=== PATIENT | female | born 1950 | race Caucasian/White ===

== ENCOUNTER 2017-04-30 14:55 | Emergency (ER) | payer SELFPAY ==
[2017-04-30 15:01] VITALS: BMI 33.8
--- NOTE | 2017-04-30 15:01 | PDOC ---
Rapid Medical Evaluation Time Seen by Provider: 04/30/17 14:56 Medical Evaluation: 04/30/17 14:56 I have performed a brief in-person evaluation of this patient. This patient presents with a chief complaint of: pain in right knee. Patient reports s/p fall yesterday going down the stairs sustaining injury to right knee. Denies head injury or loss of consciousness. Pain with worse with weight bearing. Pertinent physical exam findings: NAD unlabored breathing right knee with swelling , able to flex and extend no crepitus felt with range of motion I have ordered the following: xray, analgesia This patient will proceed to the ED for further evaluation
[2017-04-30] MEDS ORDERED: IBUPROFEN 600 MG TABLET (FP) PO ONE ×2 (15:02→16:11)
--- NOTE | 2017-04-30 16:05 | PDOC ---
History of Present Illness - General Chief Complaint: Pain, Acute Stated Complaint: INJURY/HTN Time Seen by Provider: 04/30/17 14:56 History Source: Patient Exam Limitations: No Limitations - History of Present Illness Initial Comments: 04/30/17 16:00 66 y/o female presents with right knee pain since yesterday. pt states was at [employer] and did not see the last step and fell landing on her knee. Pt denies previous injury to knee or radiation of pain. Pt also denies sensory changes distal of injury. Pt also with hx of htn buy has been off her medication over 3 years. pt states has not seen her PMD also in over 3 years. Pt denies chest pain , shortness of breath, abd pain, change in urination, or lower extremity edema. Occurred: reports: yesterday Severity: reports: mild Pain Location: reports: lower extremity Method of Injury: Yes: fall Modifying Factors: improves with: None Associated Symptoms (Fall): trouble walking (rt knee pain) Past History - Travel Traveled outside of the country in the last 30 days: No - Past Medical History Allergies/Adverse Reactions: Allergies Allergy/AdvReac Type Severity Reaction Status Date / Time No Known Allergies Allergy Verified 04/30/17 15:01 Home Medications: Ambulatory Orders Clonidine HCl [Clonidine HCl ER] 0.1 mg PO BID #14 tab.er.12h 04/30/17 Oxycodone HCl/Acetaminophen [Percocet 5-325 mg Tablet] 1 - 2 tab PO Q6H PRN #12 tab MDD 4 04/30/17 COPD: No HTN: Yes (non compliant with meds) - Suicide/Smoking/Psychosocial Hx Smoking History: Never smoked Information on smoking cessation initiated: No Hx Alcohol Use: No Drug/Substance Use Hx: No Substance Use Type: None Patient Lives Alone: No Lives with/in: spouse/SO Review of Systems - Review of Systems Able to Perform ROS?: Yes Constitutional: No: Symptoms Reported HEENTM: No: Symptoms Reported Respiratory: No: Symptoms reported Cardiac (ROS): No: Symptoms Reported ABD/GI: No: Symptoms Reported : No: Symptoms Reported Musculoskeletal: Yes: Joint Pain (right knee), Joint Swelling (right knee) Integumentary: No: Symptoms Reported Neurological: No: Symptoms reported Hematologic/Lymphatic: No: Symptoms Reported *Physical Exam - Vital Signs Last Vital Signs Temp Pulse Resp BP Pulse Ox 98.3 F 87 18 201/101 97 04/30/17 14:58 04/30/17 14:58 04/30/17 14:58 04/30/17 14:58 04/30/17 14:58 - Physical Exam General Appearance: Yes: Nourished, Appropriately Dressed. No: Apparent Distress HEENT: positive: EOMI, BOBBI, Pharynx Normal. negative: Pale Conjunctivae Neck: positive: Supple. negative: Decreased range of motion Respiratory/Chest: positive: Lungs Clear, Normal Breath Sounds. negative: Respiratory Distress, Accessory Muscle Use Cardiovascular: positive: Regular Rhythm, Regular Rate. negative: Murmur Gastrointestinal/Abdominal: positive: Soft. negative: Tenderness Extremity: positive: Normal Capillary Refill, Normal Range of Motion (but with noted discomfort with flexion/extension), Tender (rt patella. No crepitus or deformity noted ) Integumentary: positive: Normal Color, Warm, Moist Neurologic: positive: Motor Strength 5/5 Medical Decision Making - Medical Decision Making 04/30/17 16:07 Patient here for right knee injury. Patient incidentally was noted elevated blood pressure which is attributed to her being noncompliant with medication for over 3 years. Patient had no and [place] damage symptoms or other acute findings except for elevated blood pressure. Patient was ordered for any x-ray and Motrin. Patient will have repeat blood pressure once x-ray and pain is under control. 04/30/17 17:31 X-ray of the right knee shows no signs of fracture or dislocation. There is noted joint effusion on X-ray. Son states has crutches at home. Patient placed in knee immobilizer. Patient also prescribed Percocet for severe pain and referral to orthopedist also enclosed and discharge. Awaiting repeat blood pressure 04/30/17 17:52 Patient repeat blood pressure remains elevated. Patient given clonidine 0.01 mg. Will discharge home with the same 7 days 04/30/17 17:53 Selected Entries 04/30/17 17:43 Blood Pressure 203/99 [Left Arm] 04/30/17 18:42 Awaiting recheck her blood pressure after being given clonidine. *DC/Admit/Observation/Transfer Diagnosis at time of Disposition: Poor hypertension control Right knee injury Qualifiers: Encounter type: initial encounter Qualified Code(s): S89.91XA - Unspecified injury of right lower leg, initial encounter - Discharge Dispostion Disposition: HOME Condition at time of disposition: Good - Prescriptions Prescriptions: Clonidine HCl [Clonidine HCl ER] 0.1 mg PO BID #14 tab.er.12h Oxycodone HCl/Acetaminophen [Percocet 5-325 mg Tablet] 1 - 2 tab PO Q6H PRN #12 tab MDD 4 PRN Reason: Pain - Referrals Referrals: Stephen Diaz MD [Staff Physician] - - Patient Instructions Printed Discharge Instructions: High Blood Pressure (Hypertension) ( Alternative Therapy), DI for Knee Effusion Additional Instructions: Please use the immobilizer during the day and remove at night. Please follow-up with referred orthopedist the pain continues greater than 7 days or worsened in severity. Please also follow up with her PCP to discuss today's blood pressure reading. - Post Discharge Activity
[2017-04-30 17:44] VITALS: PULSE 76
[2017-04-30] MEDS ORDERED: cloNIDine HCL 0.1 MG TABLET PO ONE (17:46)
[2017-04-30] MEDS ORDERED: cloNIDine HCL 0.1 MG TABLET ONE (17:47)
[2017-04-30 18:51] VITALS: BP 141/88; TEMP 98.1
== END 2017-04-30 18:51 | disposition home or self-care (01) ==
LOC: JER 14:55
DX: S89.81XA Other specified injuries of right lower leg, initial encounter (principal); W10.8XXA Fall (on) (from) other stairs and steps, initial encounter; Y93.89 Activity, other specified; Y92.22 Religious institution as the place of occurrence of the external cause; Y99.8 Other external cause status; I10 Essential (primary) hypertension
CPT/HCPCS: 73560-TC-RT; 99283-25

== ENCOUNTER 2018-05-03 10:29 | Inpatient (IN) | payer OTHER ==
[2018-05-03 11:29] LABS: BASO % 0.8 % (0-2.0); EOS % 0.6 % (0-4.5); HEMATOCRIT 44.8 % (32.4-45.2); HEMOGLOBIN 14.9 GM/dL (10.7-15.3); LYMPH % 17.7 % (8-40); MCH 29.6 pg (25.7-33.7); MCHC 33.2 g/dl (32.0-36.0); MEAN CELL VOLUME 88.9 fl (80-96); MEAN PLT VOLUME 8.9 fl (7.5-11.1); MONO % 6.4 % (3.8-10.2); NEUT % 74.5 % (42.8-82.8); PLATELET COUNT 293 K/MM3 (134-434); RBC 5.03 M/mm3 (3.60-5.2); RDW 12.6 % (11.6-15.6)
[2018-05-03 11:49] LABS: ALBUMIN 3.9 g/dl (3.4-5.0); ALK PHOS 95 U/L (45-117); ANION GAP 7 MMOL/L (8-16); BILIRUBIN,TOTAL 0.6 mg/dL (0.2-1); BLOOD UREA NITROGEN 14 mg/dL (7-18); CALCIUM 8.9 mg/dL (8.5-10.1); CHLORIDE 101 mmol/L (98-107); CHOLESTEROL 190 mg/dL (50-200); CO2 29 mmol/L (21-32); CREATININE 0.9 mg/dL (0.55-1.3); GLUCOSE,RANDOM 238 mg/dL (74-106); HDL CHOLESTEROL 40 mg/dL (40-60); POTASSIUM 3.9 mmol/L (3.5-5.1); SGOT/AST 18 U/L (15-37); SGPT/ALT 29 U/L (13-61); SODIUM 137 mmol/L (136-145); TOT PROT 7.2 g/dl (6.4-8.2); TRIGLYCERIDES 191 mg/dL (0-150)
[2018-05-03 11:49] LABS: URINE APPEARANCE CLEAR; URINE BILIRUBIN NEGATIVE (<2.0 mg/dL); URINE COLOR YELLOW; URINE GLUCOSE (UA) 1+ (NEGATIVE); URINE KETONE 1+ (NEGATIVE); URINE LEUK ESTERASE NEGATIVE (NEGATIVE); URINE NITRITE NEGATIVE (NEGATIVE); URINE PROTEIN NEGATIVE (NEGATIVE); URINE UROBILINOGEN NEGATIVE mg/dL (0.2-1.0)
--- NOTE | 2018-05-03 11:49 | PDOC ---
*Physical Exam - Vital Signs Last Vital Signs Temp Pulse Resp BP Pulse Ox 98.0 F 77 16 205/81 H 100 05/03/18 10:49 05/03/18 10:49 05/03/18 10:49 05/03/18 10:49 05/03/18 10:49 ED Treatment Course - LABORATORY CBC & Chemistry Diagram: 05/03/18 11:11 05/03/18 11:11 - ADDITIONAL ORDERS Additional order review: 05/03/18 11:11 RBC 5.03 MCV 88.9 MCHC 33.2 RDW 12.6 MPV 8.9 Neutrophils % 74.5 Lymphocytes % 17.7 Monocytes % 6.4 Eosinophils % 0.6 Basophils % 0.8 - RADIOLOGY Radiology Studies Ordered: Category Date Time Status HEAD CT WITHOUT CONTRAST [CT] Stat CT Scan 05/03/18 11:00 Taken Medical Decision Making - Critical Care Time Total Critical Care Time (minutes): 35 Critical Care Statement: The care of this patient involved high complexity decision making to prevent further life threatening deterioration of the patient 's condition and/or to evaluate & treat vital organ system(s) failure or risk of failure. - Medical Decision Making 05/03/18 13:30 67 yo F h/o HTN, HLD, NIDDM p/w right leg weakness. Symptoms began 3 days ago, thought to be due to sciatica She now notices right arm numbness CT - Left basilar non hemorrhagic infarct Labs - wnl Pt seen by Midlevel Provider under my direct supervision Pt interviewed and examined Ancillary studies reviewed Admit to hospitalist I agree with plan as outlined by Midlevel Provider 05/03/18 13:31 *DC/Admit/Observation/Transfer Diagnosis at time of Disposition: Lacunar infarction - Referrals - Patient Instructions - Post Discharge Activity
--- NOTE | 2018-05-03 11:51 | PDOC ---
History of Present Illness - General Chief Complaint: Weakness Stated Complaint: WEAKNESS Time Seen by Provider: 05/03/18 10:45 History Source: Patient Exam Limitations: No Limitations - History of Present Illness Initial Comments: 05/03/18 13:04 Patient is a 67-year-old female with past medical history of hypertension, hyperlipidemia, [id number] diabetes, who presents to the emergency department today for new onset R leg weakness. Patient states that her symptoms began approximately 3 days ago. She did not think anything of her symptoms at that time she has had sciatica in the past. She states that when her leg started to go numb she was concerned. She now also states that she feels like her right arm is weak. Denies fevers, chills, nausea, vomiting, source of breath , difficulty breathing, chest pain. tPA Exclusion Checklist 0-3hr - Time Elapsed Date last known well: 04/30/18 Time last known well: 10:00 Elaspsed time: 3 Day(s) and 3 Hour(s) and 29 Minutes - Thrombolytic Therapy Candidate Is the patient eligible for Thrombolytic Therapy?: No - Ineligibility reason(s) Reasons No tPA given: Outside of window - delayed arrival (Waited three days to present to the ED) NIH Stroke Scale - Last Known Well Date/Time & Onset Date Last Known Well: 04/30/18 Time Last Known Well: 10:00 - Initial Evaluation Level of consciousness: Alert Ask patient the month and their age: Answers both correctly Ask patient to open & close eyes; make fist and let go: Obeys both correctly Best gaze (horizontal eye movement): Normal Visual field testing: No visual field loss Facial paresis (Show teeth/raise eyebrows/close eyes tight): Normal symmetrical movement Motor Function: Left Arm: Normal Motor Function: Right Arm: Drift Motor Function: Left Leg: Normal (extends leg 30 degrees for 5 seconds without drift) Motor Function: Right Leg: Some effort against gravity Limb Ataxia: No ataxia Sensory(Use pinprick test arms,legs,trunk,face/side to side): Mild to moderate decrease in sensation Best language (Describe picture, name items, read sentences): No Aphasia Dysarthria (read several words): Normal articulation Extinction and Inattention: No abnormality - Total Score NIH Stroke Scale Score: 4 Past History - Travel Traveled outside of the country in the last 30 days: No Close contact w/someone who was outside of country & ill: No - Past Medical History Allergies/Adverse Reactions: Allergies Allergy/AdvReac Type Severity Reaction Status Date / Time No Known Allergies Allergy Verified 05/03/18 10:54 Home Medications: Ambulatory Orders Lisinopril/Hydrochlorothiazide [Lisinopril-Hctz 20-25 mg Tab] 1 each PO DAILY Pravastatin Sodium [Pravachol] 40 mg PO HS 05/03/18 metFORMIN HCL [Metformin HCl] 500 mg PO DAILY 05/03/18 COPD: No CHF: No HTN: Yes (non compliant with meds) - Suicide/Smoking/Psychosocial Hx Smoking History: Never smoked Have you smoked in the past 12 months: No Information on smoking cessation initiated: No Hx Alcohol Use: No Drug/Substance Use Hx: No Substance Use Type: None Review of Systems - Review of Systems Able to Perform ROS?: Yes Comments:: 05/03/18 11:51 CONSTITUTIONAL: Absent: fever, chills, diaphoresis, generalized weakness, malaise, loss of appetite HEENT: Absent: rhinorrhea, nasal congestion, throat pain, throat swelling, difficulty swallowing, mouth swelling, ear pain, eye pain, visual Changes CARDIOVASCULAR: Absent: chest pain, loss of consciousness, palpitations, irregular heart rate, peripheral edema RESPIRATORY: Absent: cough, shortness of breath, dyspnea with exertion, orthopnea, wheezing, stridor, hemoptysis GASTROINTESTINAL: Absent: abdominal pain, abdominal distension, nausea, vomiting, diarrhea, constipation, melena, hematochezia GENITOURINARY: Absent: dysuria, frequency, urgency, hesitancy, hematuria, flank pain, genital pain MUSCULOSKELETAL: Absent: myalgia, arthralgia, joint swelling SKIN: Absent: rash, itching, pallor HEMATOLOGIC/IMMUNOLOGIC: Absent: easy bleeding, easy bruising, lymphadenopathy, frequent infections ENDOCRINE: Absent: unexplained weight gain, unexplained weight loss, heat intolerance, cold intolerance NEUROLOGIC: Present: R leg weakness, R arm tingling Absent: headache, dizziness, unsteady gait, seizure, mental status changes, bladder or bowel incontinence PSYCHIATRIC: Absent: anxiety, depression, suicidal or homicidal ideation, hallucinations. Is the patient limited Welsh proficient: No *Physical Exam - Vital Signs Last Vital Signs Temp Pulse Resp BP Pulse Ox 98.0 F 77 16 205/81 H 100 05/03/18 10:49 05/03/18 10:49 05/03/18 10:49 05/03/18 10:49 05/03/18 10:49 - Physical Exam Comments: 05/03/18 11:53 GENERAL: Well developed, well nourished. Awake and alert. No acute distress. HEENT: Normocephalic, atraumatic. PERRLA, EOMI. No conjunctival pallor. Sclera are non- icteric. Moist mucous membranes. Oropharynx is clear. NECK: Supple. Full ROM. No JVD. Carotid pulses 2+ and symmetric, without bruits. No thyromegaly. No lymphadenopathy. CARDIOVASCULAR: Regular rate and rhythm. No murmurs, rubs, or gallops. Distal pulses are 2+ and symmetric. PULMONARY: No evidence of respiratory distress. Lungs clear to auscultation bilaterally. No wheezing, rales or rhonchi. ABDOMINAL: Soft. Non-tender. Non-distended. No rebound or guarding. No organomegaly. Normoactive bowel sounds. MUSCULOSKELETAL Normal range of motion at all joints. No bony deformities or tenderness. No CVA tenderness. EXTREMITIES: No cyanosis. No clubbing. No edema. No calf tenderness. SKIN: Warm and dry. Normal capillary refill. No rashes. No jaundice. NEUROLOGICAL: Alert, awake, appropriate. Cranial nerves 2-12 intact. Diminished sense of smell to the R lower leg and R arm. No deficits to light touch and temperature in face. No motor deficits in the in face. R arm drift on exam, but does not hit the bed. R leg drift and hits the bed with resistance. Normoreflexic in the upper and lower extremities. Normal speech. Toes are down-going bilaterally. Gait is unobserved. PSYCHIATRIC: Cooperative. Good eye contact. Appropriate mood and affect. Moderate Sedation - Procedure Monitoring Vital Signs: Procedure Monitoring Vital Signs Temperature 98.0 F 05/03/18 10:49 Pulse Rate 77 05/03/18 10:49 Respiratory Rate 16 05/03/18 10:49 Blood Pressure 205/81 H 05/03/18 10:49 O2 Sat by Pulse Oximetry (%) 100 05/03/18 10:49 ED Treatment Course - LABORATORY CBC & Chemistry Diagram: 05/03/18 11:11 05/03/18 11:11 - ADDITIONAL ORDERS Additional order review: 05/03/18 11:11 RBC 5.03 MCV 88.9 MCHC 33.2 RDW 12.6 MPV 8.9 Neutrophils % 74.5 Lymphocytes % 17.7 Monocytes % 6.4 Eosinophils % 0.6 Basophils % 0.8 *DC/Admit/Observation/Transfer Diagnosis at time of Disposition: Lacunar infarction - Discharge Dispostion Condition at time of disposition: Stable Decision to Admit order: Yes - Referrals - Patient Instructions - Post Discharge Activity
[2018-05-03] MEDS ORDERED: HYDROCHLOROTHIAZIDE 25 MG TABLET (FP) PO ONE (11:57)
[2018-05-03] MEDS ORDERED: LISINOPRIL 20 MG TABLET (FP) PO ONE (11:57)
[2018-05-03] MEDS ORDERED: HYDROCHLOROTHIAZIDE 25 MG TABLET (FP) ONE (12:08)
[2018-05-03] MEDS ORDERED: LISINOPRIL 20 MG TABLET (FP) ONE (12:09)
[2018-05-03 12:10] LABS: INR 1.02 (0.83-1.09)
[2018-05-03] MEDS ORDERED: ASPIRIN 325 MG TABLET PO ONE (12:37)
[2018-05-03] MEDS ORDERED: ASPIRIN 325 MG TABLET ONE (13:14)
--- NOTE | 2018-05-03 13:25 | EKG ---
Test Reason : Blood Pressure : / mmHG Vent. Rate : 086 BPM Atrial Rate : 086 BPM P-R Int : 118 ms QRS Dur : 106 ms QT Int : 374 ms P-R-T Axes : 041 -21 145 degrees QTc Int : 447 ms NORMAL SINUS RHYTHM LEFT VENTRICULAR HYPERTROPHY WITH REPOLARIZATION ABNORMALITY ABNORMAL ECG NO PREVIOUS ECGS AVAILABLE Confirmed by ZAID SUMNER MD ([id number]) on 05/03/2018 1:25:03 PM Referred By: Confirmed By:ZAID SUMNER MD
--- NOTE | 2018-05-03 14:07 | HP ---
CHIEF COMPLAINT: RLE weakness x 3 days PCP: denies HISTORY OF PRESENT ILLNESS: 67 y/o F with PMH HTN, HLD, non-insulin dependent DM, who presents to the ED with RLE weakness over the past three days. As per pt, her last known well was 04/30 at 11:05AM. States that she was at home when she developed sudden RLE weakness. Pt has hx of sciataca, thus she thought it was for this reason. However it did not resolve. It was a/w with numbness and while she was able to ambulate, she had difficulty with her gait. States that during this time she continued to take her BP (lisinopril/HCTZ) and cholesterol meds (pravachol), but did not seek evaluation at the hospital. Her son was also sleeping when her sx started, so he is not aware of any acute changes. States that when she looked in the mirror, she did not notice any facial droop and did not feel as if her own speech was slurred. Pt came to the ED today d/t continued symptoms, as well as new RUE weakness that began over the last 1-2 days (she is not sure when). Denies BANERJEE, visual changes, chest pain or pressure, or changes in urinary or bowel function. Pt does not check her BP routinely at home, but states that she is compliant with lisinopril/HCTZ. States that she takes her DM meds (metformin) every other day, since she believes that she "does not have diabetes." ER course was notable for: (1) asa 325mg x 1 (2) initial BP 205/81> recheck 170/77 (3) HCTZ 25mg x 1, lisinopril 20mg x 1 Recent Travel: denies PAST MEDICAL HISTORY: as above PAST SURGICAL HISTORY: c-sections x 3 Social History: retired; used to iron neckties Smoking: denies Alcohol:denies Drugs: denies Family History: mother- passed from pancreatic CA. no other fam hx as per pt Allergies No Known Allergies Allergy (Verified 05/03/18 10:54) HOME MEDICATIONS: Home Medications Medication Instructions Recorded Lisinopril/Hydrochlorothiazide 1 each PO DAILY 05/03/18 [Lisinopril-Hctz 20-25 mg Tab] Pravastatin Sodium [Pravachol] 40 mg PO HS 05/03/18 metFORMIN HCL [Metformin HCl] 500 mg PO DAILY 05/03/18 Verified with patient . however she is not compliant with her metformin (takes every other day) since she believes that "she does not have diabetes" REVIEW OF SYSTEMS CONSTITUTIONAL: Absent: fever, chills, diaphoresis, generalized weakness, malaise, loss of appetite, weight change HEENT: Absent: rhinorrhea, nasal congestion, throat pain, throat swelling, difficulty swallowing, mouth swelling, ear pain, eye pain, visual changes CARDIOVASCULAR: Absent: chest pain, syncope, palpitations, irregular heart rate, lightheadedness , peripheral edema RESPIRATORY: Absent: cough, shortness of breath, dyspnea with exertion, orthopnea, wheezing, stridor, hemoptysis GASTROINTESTINAL: Absent: abdominal pain, abdominal distension, nausea, vomiting, diarrhea, constipation, melena, hematochezia GENITOURINARY: Absent: dysuria, frequency, urgency, hesitancy, hematuria, flank pain, genital pain MUSCULOSKELETAL: Absent: myalgia, arthralgia, joint swelling, back pain, neck pain SKIN: Absent: rash, itching, pallor HEMATOLOGIC/IMMUNOLOGIC: Absent: easy bleeding, easy bruising, lymphadenopathy, frequent infections ENDOCRINE: Absent: unexplained weight gain, unexplained weight loss, heat intolerance, cold intolerance NEUROLOGIC: +RUE weakness, RLE weakness and numbness Absent: headache, focal weakness or paresthesias, dizziness, unsteady gait, seizure, mental status changes, bladder or bowel incontinence PSYCHIATRIC: Absent: anxiety, depression, suicidal or homicidal ideation, hallucinations. PHYSICAL EXAMINATION Vital Signs - 24 hr 05/03/18 05/03/18 10:49 12:01 Temperature 98.0 F 98.2 F Pulse Rate 77 Pulse Rate [ 76 Left Radial] Respiratory 16 17 Rate Blood Pressure 205/81 H Blood Pressure 170/77 [Right Arm] O2 Sat by Pulse 100 98 Oximetry (%) GENERAL: Pleasant. Awake, alert, and fully oriented, in no acute distress. HEAD: Normal with no signs of trauma. FACE: +asymmetrical smile (R>L) EYES: Pupils equal, round and reactive to light, extraocular movements intact, sclera anicteric, conjunctiva clear. EARS, NOSE, THROAT: Ears normal, nares patent, oropharynx clear without exudates. Moist mucous membranes. NECK: Normal range of motion, supple LUNGS: Breath sounds equal, clear to auscultation bilaterally. No wheezes, and no crackles. No accessory muscle use. HEART: Regular rate and rhythm, normal S1 and S2 without murmur, rub or gallop. ABDOMEN: Soft, obese, nontender, not distended, normoactive bowel sounds, no guarding, no rebound. LOWER EXTREMITIES: 2+ pt pulses, warm, well-perfused. No peripheral edema. NEUROLOGICAL: +asymmetrical smile (R>L) +numbness over R forehead, RUE, RLE +motor strength 4/5 RUE, 3/5 RLE. did not appreciate pronator drift without dysmetria. heat plant specialist 2-12 intact. tongue midline. PSYCHIATRIC: Cooperative. SKIN: Warm, dry Laboratory Results 05/03/18 05/03/18 05/03/18 11:11 11:11 11:11 WBC 8.0 RBC 5.03 Hgb 14.9 Hct 44.8 MCV 88.9 MCH 29.6 MCHC 33.2 RDW 12.6 Plt Count 293 MPV 8.9 Absolute Neuts (auto) 6.0 Neutrophils % 74.5 Lymphocytes % 17.7 Monocytes % 6.4 Eosinophils % 0.6 Basophils % 0.8 Nucleated RBC % 0 PT with INR 12.00 INR 1.02 Sodium 137 Potassium 3.9 Chloride 101 Carbon Dioxide 29 Anion Gap 7 L BUN 14 Creatinine 0.9 Creat Clearance w eGFR > 60 Random Glucose 238 H Calcium 8.9 Total Bilirubin 0.6 AST 18 ALT 29 Alkaline Phosphatase 95 Creatine Kinase 150 Creatine Kinase Index 1.2 CK-MB (CK-2) 1.9 Troponin I < 0.02 Total Protein 7.2 Albumin 3.9 Triglycerides 191 H Cholesterol 190 Total LDL Cholesterol 129 H HDL Cholesterol [address]: no evidence of acute intracranial hemorrhage. nonhemorrhagic lacunar infarct of indeterminate age. measuring approximately 9.3mmx5.9mm is seen in the posterior aspect of the left basal ganglia. EKG: NSR, with LVH. TWI I, avL, qtc 447ms. without previous EKG for comparison. ASSESSMENT/PLAN: 67 y/o F with PMH HTN, HLD, non-insulin dependent DM, who presents to the ED with RLE weakness over the past three days. 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 does not check at home, discussed importance -in case of ischemia/infarct, pt outside of permissive HTN window. need tight control of BP. s/p lisinopril 20mg, HCTZ 25mg (home meds) in ED. will also give additional norvasc 5mg daily. stat dose now -c/w lipitor 80mg HS, asa 81mg qd -f/u ECHO -f/u carotid dopp -neuro consult; dr. marie -PT, speech and swallow. NPO until then -tele monitoring, stroke unit. neurochecks q1-2hr #HTN-uncontrolled -c/w lisinopril 20mg, HCTZ 25mg. -added norvasc 5mg qd #HLD -c/w high dose statin- lipitor 80mg PO HS -goal LDL<70 as pt also diabetic #DM -hold home metformin -ISS -BGM -F/u A1c #PPX DVT: hep 5k SQ TID #Dispo tele monitoring stroke unit Visit type - Emergency Visit Emergency Visit: Yes ED Registration Date: 05/03/18 Care time: The patient presented to the Emergency Department on the above date and was hospitalized for further evaluation of their emergent condition. - New Patient This patient is new to me today: Yes Date on this admission: 05/03/18 - Critical Care Critical Care patient: No
--- NOTE | 2018-05-03 15:40 | ECHO ---
Name: MARY NORRIS Exam:Adult Echocardiogram Study Date: 05/03/2018 03:02 PM Age: 67 yrs Reason For Study: CVA Height: 62 in Weight: 175 lb BSA: 1.8 m2 MMode/2D Measurements & Calculations IVSd: 1.1 cm Ao root diam: 2.6 cm LVIDd: 4.3 cm LA dimension: 3.0 cm LVIDs: 3.0 cm LVPWd: 0.99 cm EDV(Teich): 82.6 ml ESV(Teich): 33.8 ml Doppler Measurements & Calculations MV E max gera: 47.4 cm/sec Med Peak E' Gera: 3.8 cm/sec MV A max gera: 72.6 cm/sec Med E/e': 12.5 MV E/A: 0.65 Lat Peak E' Gera: 5.3 cm/sec MV dec time: 0.20 sec Lat E/e': 9.0 Left Ventricle There is mild concentric left ventricular hypertrophy. Left ventricular systolic function is normal. Ejection Fraction = 50-55%. The transmitral spectral Doppler flow pattern is suggestive of impaired LV relaxat ion. Right Ventricle The right ventricle is grossly normal size. The right ventricular systolic function is grossly normal . Atria Normal left and right atrial size and function. The interatrial septum is not well seen. Mitral Valve There is mild mitral valve thickening. There is no mitral valve stenosis. There is trace mitral regur gitation. Tricuspid Valve The tricuspid valve is not well visualized, but is grossly normal. There is mild tricuspid regurgitat ion. Aortic Valve Nodular thickening of the aortic valve leaflets likely represents area of focal calcification. No hemodynamically significant valvular aortic stenosis. No aortic regurgitation is present. Pulmonic Valve The pulmonic valve is not well visualized. There is no pulmonic valvular stenosis. There is no pulmon ic valvular regurgitation. Great Vessels The aortic root is normal size. Pericardium/Pleura There is no pericardial effusion. Interpretation Summary Would consider a transesophageal echocardiogram if clinically indicated. There is mild concentric lef t ventricular hypertrophy. The transmitral spectral Doppler flow pattern is suggestive of impaired LV relaxation. Left ventricular systolic function is normal. Ejection Fraction = 50-55%. The interatrial septum is not well seen. There is mild mitral valve thickening. There is trace mitral regurgitation. There is mild tricuspid regurgitation. Nodular thickening of the aortic valve leaflets likely represents area of focal calcification. There is no pericardial effusion. MD Villagomez *Miki 05/03/2018 03:39 PM
--- NOTE | 2018-05-03 16:07 | PN ---
Teaching Attending Note Name of Resident: Bev Meza ATTENDING PHYSICIAN STATEMENT I saw and evaluated the patient. I reviewed the resident's note and discussed the case with the resident. I agree with the resident's findings and plan as documented. SUBJECTIVE: Patient is feeling better still is having mild weakness. OBJECTIVE: Vital Signs Temperature 98.2 F 05/03/18 12:01 Pulse Rate 76 05/03/18 12:01 Respiratory Rate 17 05/03/18 12:01 Blood Pressure 170/77 05/03/18 12:01 O2 Sat by Pulse Oximetry (%) 98 05/03/18 12:01 GENERAL: Pleasant. Awake, alert, and fully oriented, in no acute distress. HEAD: Normal with no signs of trauma. EYES: Pupils equal, round and reactive to light, extraocular movements intact, sclera anicteric, conjunctiva clear. EARS, NOSE, THROAT: Ears normal, oropharynx clear without exudates. Moist mucous membranes. NECK: Normal range of motion, supple LUNGS: Breath sounds equal, clear to auscultation bilaterally. No wheezes, and no crackles. No accessory muscle use. HEART: Regular rate and rhythm, normal S1 and S2 without murmur, rub or gallop. ABDOMEN: Soft, obese, nontender, not distended, normoactive bowel sounds, no guarding, no rebound. EXTREMITIES: 2+ pt pulses, warm, well-perfused. No peripheral edema. NEUROLOGICAL: asymmetrical smile (R>L) but as per son that is her normal. peoplesoft financials consultant 2- 12 intact. tongue midline. RUE, RLE numbness, strength 4/5 RUE, 3/5 RLE. No dysartheria. PSYCHIATRIC: Cooperative. SKIN: Warm, dry CBCD WBC 8.0 K/mm3 (4.0-10.0) 05/03/18 11:11 RBC 5.03 M/mm3 (3.60-5.2) 05/03/18 11:11 Hgb 14.9 GM/dL (10.7-15.3) 05/03/18 11:11 Hct 44.8 % (32.4-45.2) 05/03/18 11:11 MCV 88.9 fl (80-96) 05/03/18 11:11 MCHC 33.2 g/dl (32.0-36.0) 05/03/18 11:11 RDW 12.6 % (11.6-15.6) 05/03/18 11:11 Plt Count 293 K/MM3 (134-434) 05/03/18 11:11 MPV 8.9 fl (7.5-11.1) 05/03/18 11:11 CMP Sodium 137 mmol/L (136-145) 05/03/18 11:11 Potassium 3.9 mmol/L (3.5-5.1) 05/03/18 11:11 Chloride 101 mmol/L (98-107) 05/03/18 11:11 Carbon Dioxide 29 mmol/L (21-32) 05/03/18 11:11 Anion Gap 7 MMOL/L (8-16) L 05/03/18 11:11 BUN 14 mg/dL (7-18) 05/03/18 11:11 Creatinine 0.9 mg/dL (0.55-1.3) 05/03/18 11:11 Creat Clearance w eGFR > 60 (>60) 05/03/18 11:11 Random Glucose 238 mg/dL (74-106) H 05/03/18 11:11 Calcium 8.9 mg/dL (8.5-10.1) 05/03/18 11:11 Total Bilirubin 0.6 mg/dL (0.2-1) 05/03/18 11:11 AST 18 U/L (15-37) 05/03/18 11:11 ALT 29 U/L (13-61) 05/03/18 11:11 Alkaline Phosphatase 95 U/L (45-117) 05/03/18 11:11 Total Protein 7.2 g/dl (6.4-8.2) 05/03/18 11:11 Albumin 3.9 g/dl (3.4-5.0) 05/03/18 11:11 CARDIAC ENZYMES Creatine Kinase 150 IU/L (26-192) 05/03/18 11:11 Troponin I < 0.02 ng/ml (0.00-0.05) 05/03/18 11:11 Current Medications Generic Name Dose Route Start Last Admin Trade Name Freq PRN Reason Stop Dose Admin Amlodipine Besylate 5 mg 05/03/18 14:45 Norvasc - PO DAILY [facility] Aspirin 81 mg 05/04/18 10:00 Ecotrin - PO DAILY [facility] Atorvastatin Calcium 80 mg 05/03/18 22:00 Lipitor - PO HS [facility] Heparin Sodium (Porcine) 5,000 unit 05/03/18 22:00 Heparin - SQ TID [facility] Hydrochlorothiazide 25 mg 05/04/18 10:00 Hctz - PO DAILY [facility] Insulin Aspart 1 vial 05/03/18 16:30 Novolog Vial Sliding Scale - SQ TIDAC [facility] Protocol Lisinopril 20 mg 05/04/18 10:00 Prinivil PO DAILY [facility] Home Medications Medication Instructions Recorded Lisinopril/Hydrochlorothiazide 1 each PO DAILY 05/03/18 [Lisinopril-Hctz 20-25 mg Tab] Pravastatin Sodium [Pravachol] 40 mg PO HS 05/03/18 metFORMIN HCL [Metformin HCl] 500 mg PO DAILY 05/03/[address]: no evidence of acute intracranial hemorrhage. nonhemorrhagic lacunar infarct of indeterminate age. measuring approximately 9.3mmx5.9mm is seen in the posterior aspect of the left basal ganglia. EKG: NSR, with LVH. TWI I, avL, qtc 447ms. without previous EKG for comparison. ASSESSMENT AND PLAN: 67 y/o F with PMHx of HTN, HLD, T2DM , who presents to the ED with RLE weakness over the past three days. 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
[2018-05-03] MEDS: INSULIN SLIDING SCALE (NOVOLOG) 1 VIAL SQ SCH (17:20)
[2018-05-03] MEDS: amLODIPine BESYLATE 5 MG TABLET (FP) PO SCH (17:22)
[2018-05-03] MEDS ORDERED: HEMOQUE TEST 1 EACH EACH ONE (17:24)
[2018-05-03] MEDS ORDERED: INSULIN (NOVOLOG) ASPART 100 UNITS/ML 10ML VIAL ONE (17:41)
[2018-05-03] MEDS: HEPARIN NA (PORCINE) 5,000 UNITS/ML 1ML VIAL SQ SCH (21:53)
[2018-05-03] MEDS: ATORVASTATIN CA 80 MG TABLET (FP) PO SCH (21:53)
[2018-05-03 22:41] VITALS: BMI 31.9
[2018-05-04] MEDS: INSULIN SLIDING SCALE (NOVOLOG) 1 VIAL SQ SCH ×3 (06:15→17:29)
[2018-05-04] MEDS: HEPARIN NA (PORCINE) 5,000 UNITS/ML 1ML VIAL SQ SCH ×3 (06:19→21:16)
[2018-05-04 07:57] LABS: BASO % 0.9 % (0-2.0); EOS % 2.9 % (0-4.5); HEMATOCRIT 42.6 % (32.4-45.2); HEMOGLOBIN 14.5 GM/dL (10.7-15.3); LYMPH % 36.1 % (8-40); MCHC 33.9 g/dl (32.0-36.0); MEAN CELL VOLUME 88.4 fl (80-96); MEAN PLT VOLUME 9.5 fl (7.5-11.1); MONO % 8.5 % (3.8-10.2); NEUT % 51.6 % (42.8-82.8); PLATELET COUNT 297 K/MM3 (134-434); RBC 4.82 M/mm3 (3.60-5.2); RDW 12.6 % (11.6-15.6); WHITE BLOOD COUNT 6.6 K/mm3 (4.0-10.0)
[2018-05-04 08:22] LABS: ANION GAP 11 MMOL/L (8-16); BLOOD UREA NITROGEN 16 mg/dL (7-18); CALCIUM 8.9 mg/dL (8.5-10.1); CHLORIDE 98 mmol/L (98-107); CO2 28 mmol/L (21-32); CREATININE 0.8 mg/dL (0.55-1.3); GLUCOSE,RANDOM 170 mg/dL (74-106); MAGNESIUM 2.1 mg/dL (1.8-2.4); PHOSPHOROUS 4.4 mg/dL (2.5-4.9); POTASSIUM 3.5 mmol/L (3.5-5.1); SODIUM 137 mmol/L (136-145)
[2018-05-04] MEDS ORDERED: HYDROCHLOROTHIAZIDE 25 MG TABLET (FP) PO SCH (10:00)
[2018-05-04] MEDS: amLODIPine BESYLATE 5 MG TABLET (FP) PO SCH (11:00)
[2018-05-04] MEDS: ASPIRIN COATED 81 MG TABLET.EC PO SCH (11:00)
[2018-05-04] MEDS: LISINOPRIL 20 MG TABLET (FP) PO SCH (11:00)
--- NOTE | 2018-05-04 15:20 | PN ---
Progress Note (short form) - Note Progress Note: Patient is doing better, no chest pain or palpitations, son at bedside. Son is at bedside. Vital Signs Temperature 98.0 F 05/04/18 14:10 Pulse Rate 69 05/04/18 14:10 Respiratory Rate 16 05/04/18 14:10 Blood Pressure 152/76 05/04/18 14:10 O2 Sat by Pulse Oximetry (%) 97 05/04/18 09:00 GENERAL: Pleasant. Awake, alert, and fully oriented, in no acute distress. HEAD: Normal with no signs of trauma. EYES: Pupils equal, round and reactive to light, extraocular movements intact, sclera anicteric, conjunctiva clear. EARS, NOSE, THROAT: Ears normal, oropharynx clear without exudates. Moist mucous membranes. NECK: Normal range of motion, supple LUNGS: Breath sounds equal, clear to auscultation bilaterally. No wheezes, and no crackles. No accessory muscle use. HEART: Regular rate and rhythm, normal S1 and S2 without murmur, rub or gallop. ABDOMEN: Soft, obese, nontender, not distended, normoactive bowel sounds, no guarding, no rebound. EXTREMITIES: 2+ pt pulses, warm, well-perfused. No peripheral edema. NEUROLOGICAL: asymmetrical smile (R>L) but as per son that is her normal. specialty trimmer 2- 12 intact. tongue midline. RUE, RLE numbness, strength RUE 4/5, RLE 3/5 . No dysartheria. PSYCHIATRIC: Cooperative. SKIN: Warm, dry. CBCD WBC 6.6 K/mm3 (4.0-10.0) 05/04/18 06:30 RBC 4.82 M/mm3 (3.60-5.2) 05/04/18 06:30 Hgb 14.5 GM/dL (10.7-15.3) 05/04/18 06:30 Hct 42.6 % (32.4-45.2) 05/04/18 06:30 MCV 88.4 fl (80-96) 05/04/18 06:30 MCHC 33.9 g/dl (32.0-36.0) 05/04/18 06:30 RDW 12.6 % (11.6-15.6) 05/04/18 06:30 Plt Count 297 K/MM3 (134-434) 05/04/18 06:30 MPV 9.5 fl (7.5-11.1) 05/04/18 06:30 CMP Sodium 137 mmol/L (136-145) 05/04/18 06:30 Potassium 3.5 mmol/L (3.5-5.1) 05/04/18 06:30 Chloride 98 mmol/L (98-107) 05/04/18 06:30 Carbon Dioxide 28 mmol/L (21-32) 05/04/18 06:30 Anion Gap 11 MMOL/L (8-16) 05/04/18 06:30 BUN 16 mg/dL (7-18) 05/04/18 06:30 Creatinine 0.8 mg/dL (0.55-1.3) 05/04/18 06:30 Creat Clearance w eGFR > 60 (>60) 05/04/18 06:30 Random Glucose 170 mg/dL (74-106) H 05/04/18 06:30 Calcium 8.9 mg/dL (8.5-10.1) 05/04/18 06:30 Total Bilirubin 0.6 mg/dL (0.2-1) 05/03/18 11:11 AST 18 U/L (15-37) 05/03/18 11:11 ALT 29 U/L (13-61) 05/03/18 11:11 Alkaline Phosphatase 95 U/L (45-117) 05/03/18 11:11 Total Protein 7.2 g/dl (6.4-8.2) 05/03/18 11:11 Albumin 3.9 g/dl (3.4-5.0) 05/03/18 11:11 CARDIAC ENZYMES Creatine Kinase 150 IU/L (26-192) 05/03/18 11:11 Troponin I < 0.02 ng/ml (0.00-0.05) 05/03/18 18:[address]: no evidence of acute intracranial hemorrhage. nonhemorrhagic lacunar infarct of indeterminate age. measuring approximately 9.3 mm x 5.9mm is seen in the posterior aspect of the left basal ganglia. EKG: NSR, with LVH. TWI I, avL, qtc 447ms. without previous EKG for comparison. ASSESSMENT AND PLAN: 67 y/o F with PMHx of HTN, HLD, T2DM , who presents to the ED with RLE weakness over the past three days. # Acute CVA, possible L basal ganglionic infarct; patient developed these symptoms 3 days ago , is outside of tPA window.( RLE weakness, numbness and recent RUE involvement). neuro consulted, appreciated. #HTN-uncontrolled , tight control of the blood pressure , continue with lisinopril 20mg, increased to norvasc 10mg qd, will dc Hctz #HLD continue with lipitor 80mg PO HS #DM hold home metformin, ISS, BGM, check hemoglobin A1c DVT Px: : hep 5k SQ TID tele monitoring Visit type - Emergency Visit Emergency Visit: Yes ED Registration Date: 05/03/18 Care time: The patient presented to the Emergency Department on the above date and was hospitalized for further evaluation of their emergent condition. - New Patient This patient is new to me today: No - Critical Care Critical Care patient: No - Discharge Referral Referred to [facility] Med P.C.: No
--- NOTE | 2018-05-04 17:15 | CONSULT ---
Consult - text type - Consultation Consultation Note: NEUROLOGY CONSULTATION Consultation was placed to Dr. Sotelo yesterday. I was never notified about but was asked by RN to see in coverage. This 67 yo RH woman with h/o HTN, DM, Chol is admittedly noncompliant with meds and has Hemoglobin A1-C of 8.4% Maintained on: Lisinopril, HCTZ, provachol and metformin. Admitted after three days of right leg weakness and right arm "asleep." CT of head (reviewed): shows scattered microvascular changes and a left internal capsule lacunar infarct. Carotid duplex doppler unremarkable. BP's still in the 150-160 systolic range. EXAM: Obese. No bruits. Cor reg. No head trauma. NEURO: MS/speech: Norml CN II-XII: Full henderson and EOM's. No facial. gag: OK Motor: Right drift. Right grasp 4/5. Decreased ANGELA's R. Normal reflexes except AJ's. Toes downgoing Coord: No obvious dystaxia Sensory: Reduced pin ledt arm. Reduced vibration both feet. Gait: Mild right circumduction. Unsteady turning. IMP: 1. New left internal capsule lacunar infarct with mild Right hemiparesis. 2. Diabetic peripheral neuropathy. SUGGEST: Normalize systolic hypertension (110-120/70-80) Control Glucose. Cardiology consultation MRI of brain (C-) PT/OT eval and Rx. Add Clopidogrel 75 mg qd Thank you very much, Stephen Argueta MD
[2018-05-04] MEDS: CLOPIDOGREL BISULFATE 75 MG TABLET (FP) PO SCH (17:33)
[2018-05-04] MEDS: ATORVASTATIN CA 80 MG TABLET (FP) PO SCH (21:16)
[2018-05-05] MEDS: INSULIN SLIDING SCALE (NOVOLOG) 1 VIAL SQ SCH ×3 (06:13→16:46)
[2018-05-05] MEDS: HEPARIN NA (PORCINE) 5,000 UNITS/ML 1ML VIAL SQ SCH ×3 (06:13→22:14)
--- NOTE | 2018-05-05 08:00 | PN ---
Teaching Attending Note Name of Resident: Tresa Ruiz ATTENDING PHYSICIAN STATEMENT I saw and evaluated the patient. I reviewed the resident's note and discussed the case with the resident. I agree with the resident's findings and plan as documented. SUBJECTIVE: Patient is comfortable, doing better. OBJECTIVE: Vital Signs Temperature 97.4 F L 05/05/18 04:00 Pulse Rate 74 05/05/18 04:00 Respiratory Rate 18 05/05/18 04:00 Blood Pressure 147/49 L 05/05/18 04:00 O2 Sat by Pulse Oximetry (%) 98 05/04/18 21:00 GENERAL: Pleasant. Awake, alert, and fully oriented, in no acute distress. HEAD: Normal with no signs of trauma. EYES: Pupils equal, round and reactive to light, extraocular movements intact, sclera anicteric, conjunctiva clear. EARS, NOSE, THROAT: Ears normal, oropharynx clear without exudates. Moist mucous membranes. NECK: Normal range of motion, supple LUNGS: Breath sounds equal, clear to auscultation bilaterally. No wheezes, and no crackles. No accessory muscle use. HEART: Regular rate and rhythm, normal S1 and S2 without murmur, rub or gallop. ABDOMEN: Soft, obese, nontender, not distended, normoactive bowel sounds, no guarding, no rebound. EXTREMITIES: 2+ pt pulses, warm, well-perfused. No peripheral edema. NEUROLOGICAL: asymmetrical smile (R>L) but as per son that is her normal. lime hide inspector 2- 12 intact. tongue midline. RUE, RLE numbness, strength RUE 4/5, RLE 3/5 . No dysartheria. PSYCHIATRIC: Cooperative. SKIN: Warm, dry. CBCD WBC 6.6 K/mm3 (4.0-10.0) 05/04/18 06:30 RBC 4.82 M/mm3 (3.60-5.2) 05/04/18 06:30 Hgb 14.5 GM/dL (10.7-15.3) 05/04/18 06:30 Hct 42.6 % (32.4-45.2) 05/04/18 06:30 MCV 88.4 fl (80-96) 05/04/18 06:30 MCHC 33.9 g/dl (32.0-36.0) 05/04/18 06:30 RDW 12.6 % (11.6-15.6) 05/04/18 06:30 Plt Count 297 K/MM3 (134-434) 05/04/18 06:30 MPV 9.5 fl (7.5-11.1) 05/04/18 06:30 CMP Sodium 137 mmol/L (136-145) 05/04/18 06:30 Potassium 3.5 mmol/L (3.5-5.1) 05/04/18 06:30 Chloride 98 mmol/L (98-107) 05/04/18 06:30 Carbon Dioxide 28 mmol/L (21-32) 05/04/18 06:30 Anion Gap 11 MMOL/L (8-16) 05/04/18 06:30 BUN 16 mg/dL (7-18) 05/04/18 06:30 Creatinine 0.8 mg/dL (0.55-1.3) 05/04/18 06:30 Creat Clearance w eGFR > 60 (>60) 05/04/18 06:30 Random Glucose 170 mg/dL (74-106) H 05/04/18 06:30 Calcium 8.9 mg/dL (8.5-10.1) 05/04/18 06:30 Total Bilirubin 0.6 mg/dL (0.2-1) 05/03/18 11:11 AST 18 U/L (15-37) 05/03/18 11:11 ALT 29 U/L (13-61) 05/03/18 11:11 Alkaline Phosphatase 95 U/L (45-117) 05/03/18 11:11 Total Protein 7.2 g/dl (6.4-8.2) 05/03/18 11:11 Albumin 3.9 g/dl (3.4-5.0) 05/03/18 11:11 CARDIAC ENZYMES Creatine Kinase 150 IU/L (26-192) 05/03/18 11:11 Troponin I < 0.02 ng/ml (0.00-0.05) 05/03/18 18:50 Current Medications Generic Name Dose Route Start Last Admin Trade Name Freq PRN Reason Stop Dose Admin Amlodipine Besylate 10 mg 05/04/18 17:37 Norvasc - PO DAILY [facility] Aspirin 81 mg 05/04/18 10:00 05/04/18 11:00 Ecotrin - PO 81 mg DAILY [facility] Administration Atorvastatin Calcium 80 mg 05/03/18 22:00 05/04/18 21:16 Lipitor - PO 80 mg HS DANNY Administration Clopidogrel Bisulfate 75 mg 05/04/18 17:30 05/04/18 17:33 Plavix - PO 75 mg DAILY [facility] Administration Heparin Sodium (Porcine) 5,000 unit 05/03/18 22:00 05/05/18 06:13 Heparin - SQ 5,000 unit TID [facility] Administration Insulin Aspart 1 vial 05/03/18 16:30 05/05/18 06:13 Novolog Vial Sliding Scale - SQ 2 units TIDAC [facility] Administration Protocol Lisinopril 20 mg 05/04/18 10:00 05/04/18 11:00 Prinivil PO 20 mg DAILY [facility] Administration Home Medications Medication Instructions Recorded Lisinopril/Hydrochlorothiazide 1 each PO DAILY 05/03/18 [Lisinopril-Hctz 20-25 mg Tab] Pravastatin Sodium [Pravachol] 40 mg PO HS 05/03/18 metFORMIN HCL [Metformin HCl] 500 mg PO DAILY 05/03/[address]: no evidence of acute intracranial hemorrhage. nonhemorrhagic lacunar infarct of indeterminate age. measuring approximately 9.3 mm x 5.9mm is seen in the posterior aspect of the left basal ganglia. EKG: NSR, with LVH. TWI I, avL, qtc 447ms. without previous EKG for comparison. ASSESSMENT AND PLAN: 67 y/o F with PMHx of HTN, HLD, T2DM , who presents to the ED with RLE weakness over the past three days. # Acute CVA, possible L basal ganglionic infarct; patient developed these symptoms 3 days ago therefore tPA was not given.( RLE weakness, numbness and recent RUE involvement). neuro consulted, appreciated. #HTN-uncontrolled , tight control of the blood pressure , continue with lisinopril 20mg, increased to norvasc 10mg qd, will dc Hctz and added BB #HLD continue with lipitor 80mg PO HS #DM will continue home metformin, and added Januvia 50mg po daily, will monitor DVT Px: : hep 5k SQ TID tele monitoring
[2018-05-05] MEDS ORDERED: ACETAMINOPHEN 325 MG TABLET (FP) PO PRN (08:06)
[2018-05-05] MEDS ORDERED: PT OWN MED DRAWER 7, Y5N ONE (08:45)
[2018-05-05] MEDS: metFORMIN HCL 500 MG TABLET (FP) PO SCH (09:07)
[2018-05-05] MEDS: LISINOPRIL 20 MG TABLET (FP) PO SCH (09:08)
[2018-05-05] MEDS: ASPIRIN COATED 81 MG TABLET.EC PO SCH (09:08)
[2018-05-05] MEDS: CLOPIDOGREL BISULFATE 75 MG TABLET (FP) PO SCH (09:08)
[2018-05-05] MEDS: amLODIPine BESYLATE 10 MG TABLET (FP) PO SCH (09:08)
[2018-05-05] MEDS: sitaGLIPtin PHOSPHATE 50 MG TABLET PO SCH (09:19)
[2018-05-05] MEDS: METOPROLOL TARTRATE 25 MG TABLET (FP) PO SCH ×2 (09:19→22:14)
--- NOTE | 2018-05-05 11:35 | PN ---
Physical Exam: SUBJECTIVE: Patient seen and examined at bedside this morning. No acute events overnight. Patient reported feeling good today. BP remained elevated >130/90. Patient still reports RLE weakness. Otherwise, denies headache, dizziness,fever , chills, chest pain, nausea, vomiting, SOB, abdominal pain or urinary symptoms. OBJECTIVE: Vital Signs Period Temp Pulse Resp BP Sys/[place]ills Pulse Ox Last 24 Hr 97.4 F-98.2 F 66-78 16-18 134-155/49-94 98-98 GENERAL: The patient is awake, alert, and fully oriented, in no acute distress. HEAD: Normal with no signs of trauma. EYES: PERRLA, EOMI, sclera anicteric, conjunctiva clear. ENT: Ears normal, nares patent, oropharynx clear without exudates, moist mucous membranes. NECK: Trachea midline, full range of motion, supple. LUNGS: Breath sounds equal, clear to auscultation bilaterally. HEART: Regular rate and rhythm, S1, S2 without murmur, rub or gallop. ABDOMEN: Soft, nontender, nondistended, normoactive bowel sounds. EXTREMITIES: 2+ pulses, warm, well-perfused, no edema. NEUROLOGICAL: AAOx3, Asymmetric smile (baseline), Cranial nerves II through XII grossly intact. Normal speech, gait not observed. RUE/RLE: motor strength 4/5. LUE/LLE: motor strength 5/5. Sensation intact. PSYCH: Normal mood, normal affect. SKIN: Warm, dry, normal turgor, no rashes or lesions noted Laboratory Results - last 24 hr 05/04/18 05/04/18 05/04/18 11:16 16:29 21:15 POC Glucometer 170 204 219 05/05/18 05:31 POC Glucometer 162 Active Medications Generic Name Dose Route Start Last Admin Trade Name Freq PRN Reason Stop Dose Admin Acetaminophen 650 mg 05/05/18 08:06 05/05/18 09:07 Tylenol - PO 650 mg Q6H PRN Administration FEVER Amlodipine Besylate 10 mg 05/04/18 17:37 05/05/18 09:08 Norvasc - PO 10 mg DAILY [facility] Administration Aspirin 81 mg 05/04/18 10:00 05/05/18 09:08 Ecotrin - PO 81 mg DAILY [facility] Administration Atorvastatin Calcium 80 mg 05/03/18 22:00 05/04/18 21:16 Lipitor - PO 80 mg HS [facility] Administration Clopidogrel Bisulfate 75 mg 05/04/18 17:30 05/05/18 09:08 Plavix - PO 75 mg DAILY [facility] Administration Heparin Sodium (Porcine) 5,000 unit 05/03/18 22:00 05/05/18 06:13 Heparin - SQ 5,000 unit TID [facility] Administration Insulin Aspart 1 vial 05/03/18 16:30 05/05/18 06:13 Novolog Vial Sliding Scale - SQ 2 units TIDAC [facility] Administration Protocol Lisinopril 20 mg 05/04/18 10:00 05/05/18 09:08 Prinivil PO 20 mg DAILY [facility] Administration Metformin HCl 500 mg 05/05/18 10:00 05/05/18 09:07 Glucophage - PO 500 mg DAILY [facility] Administration Metoprolol Tartrate 12.5 mg 05/05/18 10:00 05/05/18 09:19 Lopressor - PO 12.5 mg BID [facility] Administration Sitagliptin Phosphate 50 mg 05/05/18 07:00 05/05/18 09:19 Januvia - PO 50 mg DAILY@0700 DANNY Administration -Head CT: No evidence of acute intracranial hemorrhage. Nonhemorrhagic lacunar infarct of indeterminate age, measuring approximately 9.3mmx5.9mm is seen in the posterior aspect of the left basal ganglia. -Brain MRI: Acute nonhemorrhagic infarct in the Left periventricular white matter in the posterior aspect of left basal ganglia just lateral to the thalamus extending superiorly and medially to the left ventricular wall margin. There are few foci of chronic small vessel infarction in the periventricular white matter. -Carotid doppler: No doppler evidence of a high-grade carotid artery stenosis. -Echo: Would consider NATI if clinically indicated. Mild concentric left ventricular hypertrophy. The transmitral spectral Doppler flow pattern is suggestive of impaired LV relaxation. LV systolic function is normal. EF 50-55% . The interatrial septum is not well seen. Mild mitral valve thickening. Trace MR. mild TR. Nodular thickening of the aortic valve leaflets likely represents area of focal calcification. No pericardial effusion. ASSESSMENT/PLAN: Patient is a 67 year old female with past medical history of HTN, HLD and NIDDM , presented with RUE and RLE weakness and numbness for a few days. #CVA 2/2 nonhemorrhagic infarct in left basal ganglia -Brain MRI: Acute nonhemorrhagic infarct in the Left periventricular white matter in the posterior aspect of left basal ganglia just lateral to the thalamus extending superiorly and medially to the left ventricular wall margin. There are few foci of chronic small vessel infarction in the periventricular white matter. -Neurology (Dr. Argueta) consulted. Recommendations appreciated. -Tight control of blood pressure -Control blood glucose -Aspirin 81mg, Lipitor 80mg -Clopidogrel 75mg daily. -PT/OT -Neurochecks q2h #HTN: chronic -As per neuro, maintain BP 110-120/70-80 -Lopressor 12.5mg BID added. -Continue Amlodipine 10mg daily,Lisinopril 20mg daily -HCTZ discontinued -will continue to monitor #NIDDM: chronic -A1c: 8.4 -Resume Metformin 500mg daily -Januvia 50 mg daily -insulin sliding scale implemented -BGM ACHS #HLD: chronic -Atorvastatin 80mg PO HS #FEN -Not on any standing fluids -encourage increased oral fluid intake -electrolytes wnl, routine bmp monitoring -Lactose restricted diet #Prophylaxis -Heparin 5000units sq tid #Disposition -full code -stroke unit Visit type - Emergency Visit Emergency Visit: Yes ED Registration Date: 05/03/18 Care time: The patient presented to the Emergency Department on the above date and was hospitalized for further evaluation of their emergent condition. - New Patient This patient is new to me today: Yes Date on this admission: 05/05/18 - Critical Care Critical Care patient: No
[2018-05-05] MEDS ORDERED: INSULIN SLIDING SCALE (NOVOLOG) 1 VIAL SQ ONE (11:37)
[2018-05-05] MEDS ORDERED: SENNOSIDES 8.6MG TABLET (FP) PO PRN (20:42)
[2018-05-05] MEDS: ATORVASTATIN CA 80 MG TABLET (FP) PO SCH (22:14)
[2018-05-06] MEDS: HEPARIN NA (PORCINE) 5,000 UNITS/ML 1ML VIAL SQ SCH ×3 (06:19→21:35)
[2018-05-06 06:51] LABS: BASO % 0.9 % (0-2.0); EOS % 3.4 % (0-4.5); HEMATOCRIT 43.7 % (32.4-45.2); HEMOGLOBIN 14.8 GM/dL (10.7-15.3); LYMPH % 35.2 % (8-40); MCHC 33.8 g/dl (32.0-36.0); MEAN CELL VOLUME 88.9 fl (80-96); MEAN PLT VOLUME 9.2 fl (7.5-11.1); MONO % 8.2 % (3.8-10.2); NEUT % 52.3 % (42.8-82.8); PLATELET COUNT 305 K/MM3 (134-434); RBC 4.92 M/mm3 (3.60-5.2); RDW 12.8 % (11.6-15.6); WHITE BLOOD COUNT 8.3 K/mm3 (4.0-10.0)
[2018-05-06 07:02] LABS: ANION GAP 7 MMOL/L (8-16); BLOOD UREA NITROGEN 20 mg/dL (7-18); CALCIUM 8.9 mg/dL (8.5-10.1); CHLORIDE 99 mmol/L (98-107); CO2 30 mmol/L (21-32); CREATININE 0.8 mg/dL (0.55-1.3); GLUCOSE,RANDOM 160 mg/dL (74-106); MAGNESIUM 2.2 mg/dL (1.8-2.4); PHOSPHOROUS 4.6 mg/dL (2.5-4.9); POTASSIUM 3.8 mmol/L (3.5-5.1); SODIUM 136 mmol/L (136-145)
[2018-05-06] MEDS: INSULIN SLIDING SCALE (NOVOLOG) 1 VIAL SQ SCH ×3 (08:38→18:01)
[2018-05-06] MEDS: sitaGLIPtin PHOSPHATE 50 MG TABLET PO SCH (08:38)
[2018-05-06] MEDS: ASPIRIN COATED 81 MG TABLET.EC PO SCH (09:06)
[2018-05-06] MEDS: amLODIPine BESYLATE 10 MG TABLET (FP) PO SCH (09:06)
[2018-05-06] MEDS: LISINOPRIL 20 MG TABLET (FP) PO SCH (09:06)
[2018-05-06] MEDS: METOPROLOL TARTRATE 25 MG TABLET (FP) PO SCH ×2 (09:06→21:36)
[2018-05-06] MEDS: metFORMIN HCL 500 MG TABLET (FP) PO SCH (09:06)
[2018-05-06] MEDS: CLOPIDOGREL BISULFATE 75 MG TABLET (FP) PO SCH (09:06)
--- NOTE | 2018-05-06 10:43 | CONSULT ---
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 Selected Entries 05/05/18 05/05/18 05/05/18 00:00 04:00 08:00 Breakfast Lunch Supper Temperature 98.2 F 97.4 F L 97.8 F 05/05/18 05/05/18 05/05/18 10:22 11:31 14:06 Breakfast 25% Lunch 75% Supper 100% Temperature 97.9 F 05/05/18 05/05/18 05/05/18 18:00 20:52 23:02 Breakfast Lunch Supper 75% Temperature 97.7 F 97.4 F L 05/06/18 05/06/18 05/06/18 02:09 05:32 10:18 Breakfast 75% Lunch Supper Temperature 97.9 F 97.4 F L Laboratory Tests 05/06/18 06:00 WBC 8.3 History Source: Patient Limitations to Obtaining History: No Limitations, Language Barrier - Past Medical History ...: No - Smoking History Smoking history: Never smoked Have you smoked in the past 12 months: No - Alcohol/Substance Use Hx Alcohol Use: No History - Admission Reason For Visit: LACUNAR INFARCTION - Diagnostics CT Scan: Report Reviewed MRI: Report Reviewed (Brain MRI: Acute nonhemorrhagic infarct in the Left periventricular white matter in the posterior aspect of left basal ganglia just lateral to the thalamus extending superiorly and medially to the left ventricular wall margin. There are few foci of chronic small vessel infarction in the periventricular white matter.) - General Mental Status: Alert and Oriented, Awake and Alert, Able to Follow Commands Attention: Intact Ability to Follow Directions: Excellent Head/Neck Control: WFL - Hearing Hearing: Normal Speech Evaluation - Communication Primary Language: KOREAN Secondary Language: MOLDOVAN (a little) Communication: Yes: Within Normal Limits Oral Expression Ability: Yes: No Impairment - Speech Production Able to Make Needs Known: Yes: WNL Intelligibility: Yes: WNL - Speech Characteristics Voice Loudness: Normal Voice Pitch: Yes: Normal Voice Phonatory-based Quality: Yes: Normal Speech Pattern: Normal Speech Clarity: < 100% Nasal Resonance: Normal Articulation: Yes: Precise - Language/Auditory Comprehension Follows: Yes: 2 Stage Simple Commands - Language/Verbal Expression Able to Respond to Simple Queries: Yes: WNL Able to Communicate Wants and Needs: Yes: WNL Functional Communication Status: Yes: WNL Attention: Yes: Intact - 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: Yes: WNL Short Term Memory: Yes: WNL - Swallow Evaluation/Bedside Assessment Current Nutritional Intake: Regular, Thin Liquids Oral Secretions: Yes: WFL Dentition: Yes: Adequate Facial Symmetry at Rest: Symmetrical Facial Symmetry on Retraction: Symmetrical Sensation: Normal Against Resistance Opening: Normal Against Resistance Closing: Normal Pucker Lips: Normal Smile: Normal Lingual Movement: Normal, Symmetric Lingual Speed of Movement: Normal Lingual Movement Strgth Against Opposition: Normal Lingual Movement Characteristics: Normal Velopharyngeal Movement: Normal Laryngeal Elevation: WFL Laryngeal Movement: Able to Palpate Rate of Intake: WFL Bolus Size: WFL Labial Seal: WFL Chewing: WFL Oral Prep Time: WFL A-P Transit: WFL Timing of Swallow: WFL Coughing/Throat Clear: No Change in Voice: No Recommendations - Speech Evaluation, Impression/Plan Impression: Speech, languiage, swallowing, cognition grossly intact. - Disposition Discharge to: [facility] Center, To be Determined - Dysphagia Impressions/Plan Swallowing Skills: WFL Dysphagia Impressions: No Impairment *Silent aspiration: cannot be R/O at bedside - Recommendations Diet Consistency: Regular Medication Administration: Whole with water Liquids: Thin Liquids
--- NOTE | 2018-05-06 11:27 | PN ---
Physical Exam: SUBJECTIVE: Patient seen and examined at bedside this morning. No acute events overnight. Patient evaluated by PT and recommended short term rehab for physical therapy. Otherwise, denies headache, dizziness,fever, chills, chest pain, nausea, vomiting, SOB, abdominal pain or urinary symptoms. OBJECTIVE: Vital Signs Period Temp Pulse Resp BP Sys/Hills Pulse Ox Last 24 Hr 97.4 F-97.9 F 63-75 16-18 114-162/66-84 97-97 GENERAL: The patient is awake, alert, and fully oriented, in no acute distress. HEAD: Normal with no signs of trauma. EYES: PERRLA, EOMI, sclera anicteric, conjunctiva clear. ENT: Ears normal, nares patent, oropharynx clear without exudates, moist mucous membranes. NECK: Trachea midline, full range of motion, supple. LUNGS: Breath sounds equal, clear to auscultation bilaterally. HEART: Regular rate and rhythm, S1, S2 without murmur, rub or gallop. ABDOMEN: Soft, nontender, nondistended, normoactive bowel sounds. EXTREMITIES: 2+ pulses, warm, well-perfused, no edema. NEUROLOGICAL: AAOx3, Asymmetric smile (baseline), Cranial nerves II through XII grossly intact. Normal speech, gait not observed. RUE/RLE: motor strength 4/5. LUE/LLE: motor strength 5/5. Sensation intact. PSYCH: Normal mood, normal affect. SKIN: Warm, dry, normal turgor, no rashes or lesions noted Laboratory Results - last 24 hr 05/05/18 05/05/18 05/06/18 11:28 16:12 05:38 WBC RBC Hgb Hct MCV MCH MCHC RDW Plt Count MPV Absolute Neuts (auto) Neutrophils % Lymphocytes % Monocytes % Eosinophils % Basophils % Nucleated RBC % Sodium Potassium Chloride Carbon Dioxide Anion Gap BUN Creatinine Creat Clearance w eGFR POC Glucometer 219 190 168 Random Glucose Calcium Phosphorus Magnesium 05/06/18 05/06/18 06:00 06:00 WBC 8.3 RBC 4.92 Hgb 14.8 Hct 43.7 MCV 88.9 MCH 30.0 MCHC 33.8 RDW 12.8 Plt Count 305 MPV 9.2 Absolute Neuts (auto) 4.4 Neutrophils % 52.3 Lymphocytes % 35.2 Monocytes % 8.2 Eosinophils % 3.4 Basophils % 0.9 Nucleated RBC % 0 Sodium 136 Potassium 3.8 Chloride 99 Carbon Dioxide 30 Anion Gap 7 L BUN 20 H Creatinine 0.8 Creat Clearance w eGFR > 60 POC Glucometer Random Glucose 160 H Calcium 8.9 Phosphorus 4.6 Magnesium 2.2 Active Medications Generic Name Dose Route Start Last Admin Trade Name Freq PRN Reason Stop Dose Admin Acetaminophen 650 mg 05/05/18 08:06 05/05/18 09:07 Tylenol - PO 650 mg Q6H PRN Administration FEVER Amlodipine Besylate 10 mg 05/04/18 17:37 05/06/18 09:06 Norvasc - PO 10 mg DAILY DANNY Administration Aspirin 81 mg 05/04/18 10:00 05/06/18 09:06 Ecotrin - PO 81 mg DAILY DANNY Administration Atorvastatin Calcium 80 mg 05/03/18 22:00 05/05/18 22:14 Lipitor - PO 80 mg HS DANNY Administration Clopidogrel Bisulfate 75 mg 05/04/18 17:30 05/06/18 09:06 Plavix - PO 75 mg DAILY DANNY Administration Heparin Sodium (Porcine) 5,000 unit 05/03/18 22:00 05/06/18 06:19 Heparin - SQ 5,000 unit TID DANNY Administration Insulin Aspart 1 vial 05/03/18 16:30 05/06/18 08:38 Novolog Vial Sliding Scale - SQ 2 units TIDAC DANNY Administration Protocol Lisinopril 20 mg 05/04/18 10:00 05/06/18 09:06 Prinivil PO 20 mg DAILY DANNY Administration Metformin HCl 500 mg 05/05/18 10:00 05/06/18 09:06 Glucophage - PO 500 mg DAILY DANNY Administration Metoprolol Tartrate 12.5 mg 05/05/18 10:00 05/06/18 09:06 Lopressor - PO 12.5 mg BID DANNY Administration Senna 2 tab 05/05/18 20:42 05/05/18 22:14 Senna - PO 2 tab HS PRN Administration CONSTIPATION Sitagliptin Phosphate 50 mg 05/05/18 07:00 05/06/18 08:38 Januvia - PO 50 mg DAILY@0700 DANNY Administration -Head CT: No evidence of acute intracranial hemorrhage. Nonhemorrhagic lacunar infarct of indeterminate age, measuring approximately 9.3mmx5.9mm is seen in the posterior aspect of the left basal ganglia. -Brain MRI: Acute nonhemorrhagic infarct in the Left periventricular white matter in the posterior aspect of left basal ganglia just lateral to the thalamus extending superiorly and medially to the left ventricular wall margin. There are few foci of chronic small vessel infarction in the periventricular white matter. -Carotid doppler: No doppler evidence of a high-grade carotid artery stenosis. -Echo: Would consider NATI if clinically indicated. Mild concentric left ventricular hypertrophy. The transmitral spectral Doppler flow pattern is suggestive of impaired LV relaxation. LV systolic function is normal. EF 50-55% . The interatrial septum is not well seen. Mild mitral valve thickening. Trace MR. mild TR. Nodular thickening of the aortic valve leaflets likely represents area of focal calcification. No pericardial effusion. ASSESSMENT/PLAN: Patient is a 67 year old female with past medical history of HTN, HLD and NIDDM , presented with RUE and RLE weakness and numbness for a few days. #CVA 2/2 nonhemorrhagic infarct in left basal ganglia -Brain MRI: Acute nonhemorrhagic infarct in the Left periventricular white matter in the posterior aspect of left basal ganglia just lateral to the thalamus extending superiorly and medially to the left ventricular wall margin. There are few foci of chronic small vessel infarction in the periventricular white matter. -Neurology (Dr. Argueta) consulted. Recommendations appreciated. -Tight control of blood pressure -Control blood glucose -Aspirin 81mg, Lipitor 80mg -Clopidogrel 75mg daily. -Physical therapy recommendation: patient would benefit from acute rehab or [facility]. -Awaiting SNF placement. #HTN: chronic -As per neuro, maintain BP 110-120/70-80 -Lopressor 12.5mg BID added. -Continue Amlodipine 10mg daily,Lisinopril 20mg daily -HCTZ discontinued -will continue to monitor #NIDDM: chronic -A1c: 8.4 -Resume Metformin 500mg daily -Januvia 50 mg daily -insulin sliding scale implemented -BGM ACHS -Control blood glucose #HLD: chronic -Atorvastatin 80mg PO HS #FEN -Not on any standing fluids -encourage increased oral fluid intake -electrolytes wnl, routine bmp monitoring -Lactose restricted diet #Prophylaxis -Heparin 5000units sq tid #Disposition -full code -stroke unit Visit type - Emergency Visit Emergency Visit: Yes ED Registration Date: 05/03/18 Care time: The patient presented to the Emergency Department on the above date and was hospitalized for further evaluation of their emergent condition. - New Patient This patient is new to me today: No - Critical Care Critical Care patient: No
[2018-05-06] MEDS ORDERED: INSULIN SLIDING SCALE (NOVOLOG) 1 VIAL SQ ONE (11:41)
--- NOTE | 2018-05-06 13:43 | PN ---
Teaching Attending Note Name of Resident: Tresa Ruiz ATTENDING PHYSICIAN STATEMENT I saw and evaluated the patient. I reviewed the resident's note and discussed the case with the resident. I agree with the resident's findings and plan as documented. SUBJECTIVE: Patient is doing better. improving slightly. OBJECTIVE: Vital Signs Temperature 97.4 F L 05/06/18 05:32 Pulse Rate 63 05/06/18 05:32 Respiratory Rate 16 05/06/18 05:32 Blood Pressure 114/73 05/06/18 05:32 O2 Sat by Pulse Oximetry (%) 97 05/06/18 10:00 GENERAL: Pleasant. Awake, alert, and fully oriented, in no acute distress. HEAD: Normal with no signs of trauma. EYES: Pupils equal, round and reactive to light, extraocular movements intact, sclera anicteric, conjunctiva clear. EARS, NOSE, THROAT: Ears normal, oropharynx clear without exudates. Moist mucous membranes. NECK: Normal range of motion, supple LUNGS: Breath sounds equal, clear to auscultation bilaterally. No wheezes, and no crackles. No accessory muscle use. HEART: Regular rate and rhythm, normal S1 and S2 without murmur, rub or gallop. ABDOMEN: Soft, obese, nontender, not distended, normoactive bowel sounds, no guarding, no rebound. EXTREMITIES: 2+ pt pulses, warm, well-perfused. No peripheral edema. NEUROLOGICAL: asymmetrical smile (R>L) but as per son that is her normal. 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 tongue midline. RUE, RLE numbness, strength RUE 4/5, RLE 3/5 . No dysartheria. PSYCHIATRIC: Cooperative. SKIN: Warm, dry. BCD WBC 8.3 K/mm3 (4.0-10.0) 05/06/18 06:00 RBC 4.92 M/mm3 (3.60-5.2) 05/06/18 06:00 Hgb 14.8 GM/dL (10.7-15.3) 05/06/18 06:00 Hct 43.7 % (32.4-45.2) 05/06/18 06:00 MCV 88.9 fl (80-96) 05/06/18 06:00 MCHC 33.8 g/dl (32.0-36.0) 05/06/18 06:00 RDW 12.8 % (11.6-15.6) 05/06/18 06:00 Plt Count 305 K/MM3 (134-434) 05/06/18 06:00 MPV 9.2 fl (7.5-11.1) 05/06/18 06:00 CMP Sodium 136 mmol/L (136-145) 05/06/18 06:00 Potassium 3.8 mmol/L (3.5-5.1) 05/06/18 06:00 Chloride 99 mmol/L (98-107) 05/06/18 06:00 Carbon Dioxide 30 mmol/L (21-32) 05/06/18 06:00 Anion Gap 7 MMOL/L (8-16) L 05/06/18 06:00 BUN 20 mg/dL (7-18) H 05/06/18 06:00 Creatinine 0.8 mg/dL (0.55-1.3) 05/06/18 06:00 Creat Clearance w eGFR > 60 (>60) 05/06/18 06:00 Random Glucose 160 mg/dL (74-106) H 05/06/18 06:00 Calcium 8.9 mg/dL (8.5-10.1) 05/06/18 06:00 Total Bilirubin 0.6 mg/dL (0.2-1) 05/03/18 11:11 AST 18 U/L (15-37) 05/03/18 11:11 ALT 29 U/L (13-61) 05/03/18 11:11 Alkaline Phosphatase 95 U/L (45-117) 05/03/18 11:11 Total Protein 7.2 g/dl (6.4-8.2) 05/03/18 11:11 Albumin 3.9 g/dl (3.4-5.0) 05/03/18 11:11 CARDIAC ENZYMES Creatine Kinase 150 IU/L (26-192) 05/03/18 11:11 Troponin I < 0.02 ng/ml (0.00-0.05) 05/03/18 18:50 Current Medications Generic Name Dose Route Start Last Admin Trade Name Freq PRN Reason Stop Dose Admin Acetaminophen 650 mg 05/05/18 08:06 05/05/18 09:07 Tylenol - PO 650 mg Q6H PRN Administration FEVER Amlodipine Besylate 10 mg 05/04/18 17:37 05/06/18 09:06 Norvasc - PO 10 mg DAILY DANNY Administration Aspirin 81 mg 05/04/18 10:00 05/06/18 09:06 Ecotrin - PO 81 mg DAILY DANNY Administration Atorvastatin Calcium 80 mg 05/03/18 22:00 05/05/18 22:14 Lipitor - PO 80 mg HS DANNY Administration Clopidogrel Bisulfate 75 mg 05/04/18 17:30 05/06/18 09:06 Plavix - PO 75 mg DAILY DANNY Administration Heparin Sodium (Porcine) 5,000 unit 05/03/18 22:00 05/06/18 06:19 Heparin - SQ 5,000 unit TID DANNY Administration Insulin Aspart 1 vial 05/03/18 16:30 05/06/18 11:40 Novolog Vial Sliding Scale - SQ 6 units TIDAC DANNY Administration Protocol Lisinopril 20 mg 05/04/18 10:00 05/06/18 09:06 Prinivil PO 20 mg DAILY DANNY Administration Metformin HCl 500 mg 05/05/18 10:00 05/06/18 09:06 Glucophage - PO 500 mg DAILY DANNY Administration Metoprolol Tartrate 12.5 mg 05/05/18 10:00 05/06/18 09:06 Lopressor - PO 12.5 mg BID DANNY Administration Senna 2 tab 05/05/18 20:42 05/05/18 22:14 Senna - PO 2 tab HS PRN Administration CONSTIPATION Sitagliptin Phosphate 50 mg 05/05/18 07:00 05/06/18 08:38 Januvia - PO 50 mg DAILY@0700 DANNY Administration Home Medications Medication Instructions Recorded Lisinopril/Hydrochlorothiazide 1 each PO DAILY 05/03/18 [Lisinopril-Hctz 20-25 mg Tab] Pravastatin Sodium [Pravachol] 40 mg PO HS 05/03/18 metFORMIN HCL [Metformin HCl] 500 mg PO DAILY 05/03/[address]: no evidence of acute intracranial hemorrhage. nonhemorrhagic lacunar infarct of indeterminate age. measuring approximately 9.3 mm x 5.9mm is seen in the posterior aspect of the left basal ganglia. EKG: NSR, with LVH. TWI I, avL, qtc 447ms. without previous EKG for comparison. ASSESSMENT AND PLAN: 67 y/o F with PMHx of HTN, HLD, T2DM , who presents to the ED with RLE weakness over the past three days. # Acute CVA, possible L basal ganglionic infarct; patient developed these symptoms 3 days prior to admission. therefore tPA was not given.( RLE weakness , numbness and recent RUE involvement). neuro consulted, appreciated. Patient will need rehab. like [facility] to improve her strength. #HTN-uncontrolled , tight control of the blood pressure , continue with lisinopril 20mg, increased to norvasc 10mg qd, will dc Hctz and added BB #HLD continue with lipitor 80mg PO HS #DM will continue home metformin, and added Januvia 50mg po daily,continue and will monitor Blood sugar. DVT Px: : hep 5k SQ TID tele monitoring
[2018-05-06] MEDS: ATORVASTATIN CA 80 MG TABLET (FP) PO SCH (21:36)
[2018-05-07] MEDS: HEPARIN NA (PORCINE) 5,000 UNITS/ML 1ML VIAL SQ SCH ×3 (06:16→21:23)
[2018-05-07] MEDS: sitaGLIPtin PHOSPHATE 50 MG TABLET PO SCH (06:16)
[2018-05-07] MEDS: INSULIN SLIDING SCALE (NOVOLOG) 1 VIAL SQ SCH ×3 (06:16→16:00)
[2018-05-07] MEDS: amLODIPine BESYLATE 10 MG TABLET (FP) PO SCH (09:06)
[2018-05-07] MEDS: LISINOPRIL 20 MG TABLET (FP) PO SCH (09:06)
[2018-05-07] MEDS: ASPIRIN COATED 81 MG TABLET.EC PO SCH (09:06)
[2018-05-07] MEDS: metFORMIN HCL 500 MG TABLET (FP) PO SCH (09:07)
[2018-05-07] MEDS: METOPROLOL TARTRATE 25 MG TABLET (FP) PO SCH ×2 (09:07→21:23)
[2018-05-07] MEDS: CLOPIDOGREL BISULFATE 75 MG TABLET (FP) PO SCH (09:07)
--- NOTE | 2018-05-07 11:10 | PN ---
Physical Exam: SUBJECTIVE: Patient seen and examined. No acute events overnight. Offers no complains. OBJECTIVE: Vital Signs Period Temp Pulse Resp BP Sys/Hills Pulse Ox Last 24 Hr 97.3 F-98.6 F 64-83 16-20 118-156/56-82 97-98 GENERAL: The patient is awake, alert, and fully oriented, in no acute distress. HEAD: Normal with no signs of trauma. EYES: PERRLA, EOMI, sclera anicteric, conjunctiva clear. ENT: oropharynx clear without exudates, moist mucous membranes. NECK: supple. LUNGS: Breath sounds equal, clear to auscultation bilaterally. HEART: Regular rate and rhythm, S1, S2 without murmur, rub or gallop. ABDOMEN: Soft, nontender, nondistended, normoactive bowel sounds. EXTREMITIES: 2+ pulses, warm, well-perfused, no edema. NEUROLOGICAL: AAOx3, Cranial nerves II through XII grossly intact. Normal speech. RUE/RLE: motor strength 4/5. LUE/LLE: motor strength 5/5. Sensation intact. PSYCH: Normal mood, normal affect. Laboratory Results - last 24 hr 05/06/18 05/06/18 05/07/18 11:37 16:39 05:34 POC Glucometer 264 135 208 Active Medications Generic Name Dose Route Start Last Admin Trade Name Freq PRN Reason Stop Dose Admin Acetaminophen 650 mg 05/05/18 08:06 05/05/18 09:07 Tylenol - PO 650 mg Q6H PRN Administration FEVER Amlodipine Besylate 10 mg 05/04/18 17:37 05/07/18 09:06 Norvasc - PO 10 mg DAILY DANNY Administration Aspirin 81 mg 05/04/18 10:00 05/07/18 09:06 Ecotrin - PO 81 mg DAILY DANNY Administration Atorvastatin Calcium 80 mg 05/03/18 22:00 05/06/18 21:36 Lipitor - PO 80 mg HS DANNY Administration Clopidogrel Bisulfate 75 mg 05/04/18 17:30 05/07/18 09:07 Plavix - PO 75 mg DAILY DANNY Administration Heparin Sodium (Porcine) 5,000 unit 05/03/18 22:00 05/07/18 06:16 Heparin - SQ 5,000 unit TID DANNY Administration Insulin Aspart 1 vial 05/03/18 16:30 05/07/18 06:16 Novolog Vial Sliding Scale - SQ 4 units TIDAC DANNY Administration Protocol Lisinopril 20 mg 05/04/18 10:00 05/07/18 09:06 Prinivil PO 20 mg DAILY DANNY Administration Metformin HCl 500 mg 05/05/18 10:00 05/07/18 09:07 Glucophage - PO 500 mg DAILY DANNY Administration Metoprolol Tartrate 12.5 mg 05/05/18 10:00 05/07/18 09:07 Lopressor - PO 12.5 mg BID DANNY Administration Senna 2 tab 05/05/18 20:42 05/05/18 22:14 Senna - PO 2 tab HS PRN Administration CONSTIPATION Sitagliptin Phosphate 50 mg 05/05/18 07:00 05/07/18 06:16 Januvia - PO 50 mg DAILY@0700 [facility] Administration ASSESSMENT/PLAN: Patient is a 67 year old female with past medical history of HTN, HLD and NIDDM , presented with RUE and RLE weakness and numbness for a few days. #CVA 2/2 nonhemorrhagic infarct in left basal ganglia -Brain MRI: Acute nonhemorrhagic infarct in the Left periventricular white matter in the posterior aspect of left basal ganglia just lateral to the thalamus extending superiorly and medially to the left ventricular wall margin. There are few foci of chronic small vessel infarction in the periventricular white matter. -Neurology (Dr. Argueta) consulted. Recommendations appreciated. -Tight control of blood pressure -Control blood glucose -Aspirin 81mg, Lipitor 80mg -Clopidogrel 75mg daily. -Awaiting SNF placement: Ji #HTN: chronic -As per neuro, maintain BP 110-120/70-80 -Lopressor 12.5mg BID added. -Continue Amlodipine 10mg daily,Lisinopril 20mg daily -HCTZ discontinued -will continue to monitor #NIDDM: chronic -A1c: 8.4 -Resume Metformin 500mg daily -Januvia 50 mg daily -insulin sliding scale implemented -BGM ACHS -Control blood glucose #HLD: chronic -Atorvastatin 80mg PO HS #FEN -Not on any standing fluids -encourage increased oral fluid intake -electrolytes wnl, routine bmp monitoring -Lactose restricted diet #Prophylaxis -Heparin 5000units sq tid #Disposition -awaiting placement: Ji Visit type - Emergency Visit Emergency Visit: Yes ED Registration Date: 05/03/18 Care time: The patient presented to the Emergency Department on the above date and was hospitalized for further evaluation of their emergent condition. - New Patient This patient is new to me today: Yes Date on this admission: 05/07/18 - Critical Care Critical Care patient: No
[2018-05-07] MEDS: ATORVASTATIN CA 80 MG TABLET (FP) PO SCH (21:23)
[2018-05-08] MEDS: HEPARIN NA (PORCINE) 5,000 UNITS/ML 1ML VIAL SQ SCH ×2 (06:23→13:24)
[2018-05-08] MEDS: sitaGLIPtin PHOSPHATE 50 MG TABLET PO SCH (06:23)
[2018-05-08] MEDS: INSULIN SLIDING SCALE (NOVOLOG) 1 VIAL SQ SCH ×3 (06:23→16:16)
[2018-05-08] MEDS: LISINOPRIL 20 MG TABLET (FP) PO SCH (09:30)
[2018-05-08] MEDS: CLOPIDOGREL BISULFATE 75 MG TABLET (FP) PO SCH (09:31)
[2018-05-08] MEDS: ASPIRIN COATED 81 MG TABLET.EC PO SCH (09:31)
[2018-05-08] MEDS: amLODIPine BESYLATE 10 MG TABLET (FP) PO SCH (09:31)
[2018-05-08] MEDS: METOPROLOL TARTRATE 25 MG TABLET (FP) PO SCH (09:31)
[2018-05-08] MEDS: metFORMIN HCL 500 MG TABLET (FP) PO SCH (09:31)
--- NOTE | 2018-05-08 11:03 | PN ---
Progress Note, SURVEY RODMAN - Note Progress Note: Selected Entries 05/07/18 05/07/18 05/07/18 01:38 06:50 09:11 Breakfast Lunch Supper Temperature 98.2 F 98.6 F 98 F 05/07/18 05/07/18 05/07/18 10:30 13:15 18:00 Breakfast 25% Lunch 50% Supper Temperature 98.1 F 97.7 F 05/07/18 05/07/18 05/08/18 22:00 23:21 01:32 Breakfast Lunch Supper 75% Temperature 97.8 F 97.9 F 05/08/18 05/08/18 05/08/18 06:00 09:17 10:21 Breakfast 100% Lunch Supper Temperature 97.9 F 97.8 F Laboratory Tests 05/06/18 06:00 WBC 8.3 Tolerating diet. Spoeech/swallow/cognitive function stable. No further f/u indication.
--- NOTE | 2018-05-08 13:18 | PN ---
Physical Exam: SUBJECTIVE: Patient seen and examined at bedside this morning. No acute events overnight. Patient has no new complaints. She denies headache, dizziness,fever, chills, chest pain, nausea, vomiting, SOB, abdominal pain or urinary symptoms. OBJECTIVE: Vital Signs Period Temp Pulse Resp BP Sys/Hills Pulse Ox Last 24 Hr 97.7 F-97.9 F 61-70 18-18 111-155/60-79 96-98 GENERAL: The patient is awake, alert, and fully oriented, in no acute distress. HEAD: Normal with no signs of trauma. EYES: PERRLA, EOMI, sclera anicteric, conjunctiva clear. ENT: Ears normal, nares patent, oropharynx clear without exudates, moist mucous membranes. NECK: Trachea midline, full range of motion, supple. LUNGS: Breath sounds equal, clear to auscultation bilaterally. HEART: Regular rate and rhythm, S1, S2 without murmur, rub or gallop. ABDOMEN: Soft, nontender, nondistended, normoactive bowel sounds. EXTREMITIES: 2+ pulses, warm, well-perfused, no edema. NEUROLOGICAL: AAOx3, Asymmetric smile (baseline), Cranial nerves II through XII grossly intact. Normal speech, gait not observed. RUE/RLE: motor strength 4/5. LUE/LLE: motor strength 5/5. Sensation intact. PSYCH: Normal mood, normal affect. SKIN: Warm, dry, normal turgor, no rashes or lesions noted Laboratory Results - last 24 hr 05/07/18 05/08/18 05/08/18 15:58 06:22 11:22 POC Glucometer 149 159 198 Active Medications Generic Name Dose Route Start Last Admin Trade Name Freq PRN Reason Stop Dose Admin Acetaminophen 650 mg 05/05/18 08:06 05/05/18 09:07 Tylenol - PO 650 mg Q6H PRN Administration FEVER Amlodipine Besylate 10 mg 05/04/18 17:37 05/08/18 09:31 Norvasc - PO 10 mg DAILY DANNY Administration Aspirin 81 mg 05/04/18 10:00 05/08/18 09:31 Ecotrin - PO 81 mg DAILY DANNY Administration Atorvastatin Calcium 80 mg 05/03/18 22:00 05/07/18 21:23 Lipitor - PO 80 mg HS DANNY Administration Clopidogrel Bisulfate 75 mg 05/04/18 17:30 05/08/18 09:31 Plavix - PO 75 mg DAILY DANNY Administration Heparin Sodium (Porcine) 5,000 unit 05/03/18 22:00 05/08/18 06:23 Heparin - SQ 5,000 unit TID DANNY Administration Insulin Aspart 1 vial 05/03/18 16:30 05/08/18 12:13 Novolog Vial Sliding Scale - SQ 2 units TIDAC DANNY Administration Protocol Lisinopril 20 mg 05/04/18 10:00 05/08/18 09:30 Prinivil PO 20 mg DAILY DANNY Administration Metformin HCl 500 mg 05/05/18 10:00 05/08/18 09:31 Glucophage - PO 500 mg DAILY DANNY Administration Metoprolol Tartrate 12.5 mg 05/05/18 10:00 05/08/18 09:31 Lopressor - PO 12.5 mg BID DANNY Administration Senna 2 tab 05/05/18 20:42 05/05/18 22:14 Senna - PO 2 tab HS PRN Administration CONSTIPATION Sitagliptin Phosphate 50 mg 05/05/18 07:00 05/08/18 06:23 Januvia - PO 50 mg DAILY@0700 DANNY Administration -Head CT: No evidence of acute intracranial hemorrhage. Nonhemorrhagic lacunar infarct of indeterminate age, measuring approximately 9.3mmx5.9mm is seen in the posterior aspect of the left basal ganglia. -Brain MRI: Acute nonhemorrhagic infarct in the Left periventricular white matter in the posterior aspect of left basal ganglia just lateral to the thalamus extending superiorly and medially to the left ventricular wall margin. There are few foci of chronic small vessel infarction in the periventricular white matter. -Carotid doppler: No doppler evidence of a high-grade carotid artery stenosis. -Echo: Would consider NATI if clinically indicated. Mild concentric left ventricular hypertrophy. The transmitral spectral Doppler flow pattern is suggestive of impaired LV relaxation. LV systolic function is normal. EF 50-55% . The interatrial septum is not well seen. Mild mitral valve thickening. Trace MR. mild TR. Nodular thickening of the aortic valve leaflets likely represents area of focal calcification. No pericardial effusion. ASSESSMENT/PLAN: Patient is a 67 year old female with past medical history of HTN, HLD and NIDDM , presented with RUE and RLE weakness and numbness for a few days. #CVA 2/2 nonhemorrhagic infarct in left basal ganglia -Brain MRI: Acute nonhemorrhagic infarct in the Left periventricular white matter in the posterior aspect of left basal ganglia just lateral to the thalamus extending superiorly and medially to the left ventricular wall margin. There are few foci of chronic small vessel infarction in the periventricular white matter. -Neurology (Dr. Argueta) consulted. Recommendations appreciated. -Tight control of blood pressure -Control blood glucose -Aspirin 81mg, Lipitor 80mg -Clopidogrel 75mg daily. -Physical therapy recommendation: patient would benefit from acute rehab or [facility]. -Awaiting SNF placement. #HTN: chronic -As per neuro, maintain BP 110-120/70-80 -Lopressor 12.5mg BID added. -Continue Amlodipine 10mg daily,Lisinopril 20mg daily -HCTZ discontinued -will continue to monitor #NIDDM: chronic -A1c: 8.4 -Resume Metformin 500mg daily -Januvia 50 mg daily -insulin sliding scale implemented -BGM ACHS -Control blood glucose #HLD: chronic -Atorvastatin 80mg PO HS #FEN -Not on any standing fluids -encourage increased oral fluid intake -electrolytes wnl, routine bmp monitoring -Lactose restricted diet #Prophylaxis -Heparin 5000units sq tid #Disposition -full code -stroke unit
[2018-05-08 14:38] VITALS: BP 141/73; PULSE 72; TEMP 98
--- NOTE | 2018-05-08 15:00 | PN ---
Teaching Attending Note Name of Resident: Tresa Ruiz ATTENDING PHYSICIAN STATEMENT I saw and evaluated the patient. I reviewed the resident's note and discussed the case with the resident. I agree with the resident's findings and plan as documented. SUBJECTIVE: Patient has no complaints. OBJECTIVE: Vital Signs Period Temp Pulse Resp BP Sys/Hills Pulse Ox Last 24 Hr 97.7 F-98.0 F 61-72 18-18 111-155/60-79 96-98 HEART: S1S2, RRR LUNGS: Clear ABDOMEN: Obese, soft, non-tender, non-distended, normal BS EXTREMITIES: No edema NEUROLOGICAL: Alert, oriented, strength 4/5 in RUE/RLE and 5/5 in LUE/LLE Laboratory Results - last 24 hr 05/07/18 05/08/18 05/08/18 15:58 06:22 11:22 POC Glucometer 149 159 198 Current Medications Generic Name Dose Route Start Last Admin Trade Name Freq PRN Reason Stop Dose Admin Acetaminophen 650 mg 05/05/18 08:06 05/05/18 09:07 Tylenol - PO 650 mg Q6H PRN Administration FEVER Amlodipine Besylate 10 mg 05/04/18 17:37 05/08/18 09:31 Norvasc - PO 10 mg DAILY DANNY Administration Aspirin 81 mg 05/04/18 10:00 05/08/18 09:31 Ecotrin - PO 81 mg DAILY DANNY Administration Atorvastatin Calcium 80 mg 05/03/18 22:00 05/07/18 21:23 Lipitor - PO 80 mg HS DANNY Administration Clopidogrel Bisulfate 75 mg 05/04/18 17:30 05/08/18 09:31 Plavix - PO 75 mg DAILY DANNY Administration Heparin Sodium (Porcine) 5,000 unit 05/03/18 22:00 05/08/18 13:24 Heparin - SQ 5,000 unit TID DANNY Administration Insulin Aspart 1 vial 05/03/18 16:30 05/08/18 12:13 Novolog Vial Sliding Scale - SQ 2 units TIDAC DANNY Administration Protocol Lisinopril 20 mg 05/04/18 10:00 05/08/18 09:30 Prinivil PO 20 mg DAILY DANNY Administration Metformin HCl 500 mg 05/05/18 10:00 05/08/18 09:31 Glucophage - PO 500 mg DAILY DANNY Administration Metoprolol Tartrate 12.5 mg 05/05/18 10:00 05/08/18 09:31 Lopressor - PO 12.5 mg BID DANNY Administration Senna 2 tab 05/05/18 20:42 05/05/18 22:14 Senna - PO 2 tab HS PRN Administration CONSTIPATION Sitagliptin Phosphate 50 mg 05/05/18 07:00 05/08/18 06:23 Januvia - PO 50 mg DAILY@0700 DANNY Administration ASSESSMENT AND PLAN: This is a 67 year old woman with a history of HTN, hyperlipidemia, type 2 DM who presented to the ED with right sided weakness and numbness. 1. Acute left basal ganglia ischemic CVA - Continue aspirin, Plavix, Lipitor - Continue PT/OT - [facility] 2. HTN - Continue Norvasc, lisinopril, Lopressor 3. Type 2 DM with peripheral neuropathy - Continue metformin, Januvia, Novolog sliding scale 4. Hyperlipidemia - Continue Lipitor
--- NOTE | 2018-05-08 16:22 | DS ---
Physical Exam: SUBJECTIVE: Patient seen and examined at bedside this morning. No acute events overnight. Patient has no new complaints. She denies headache, dizziness,fever, chills, chest pain, nausea, vomiting, SOB, abdominal pain or urinary symptoms. OBJECTIVE: Vital Signs Period Temp Pulse Resp BP Sys/Hills Pulse Ox Last 24 Hr 97.7 F-98.0 F 61-72 18-18 111-155/60-79 96-98 PHYSICAL EXAM GENERAL: The patient is awake, alert, and fully oriented, in no acute distress. HEAD: Normal with no signs of trauma. EYES: PERRLA, EOMI, sclera anicteric, conjunctiva clear. ENT: Ears normal, nares patent, oropharynx clear without exudates, moist mucous membranes. NECK: Trachea midline, full range of motion, supple. LUNGS: Breath sounds equal, clear to auscultation bilaterally. HEART: Regular rate and rhythm, S1, S2 without murmur, rub or gallop. ABDOMEN: Soft, nontender, nondistended, normoactive bowel sounds. EXTREMITIES: 2+ pulses, warm, well-perfused, no edema. NEUROLOGICAL: AAOx3, Asymmetric smile (baseline), Cranial nerves II through XII grossly intact. Normal speech, gait not observed. RUE/RLE: motor strength 4/5. LUE/LLE: motor strength 5/5. Sensation intact. PSYCH: Normal mood, normal affect. SKIN: Warm, dry, normal turgor, no rashes or lesions noted LABS Laboratory Results - last 24 hr 05/08/18 05/08/18 06:22 11:22 POC Glucometer 159 198 CBC, BMP 05/06/18 06:00 05/06/18 06:00 -Head CT: No evidence of acute intracranial hemorrhage. Nonhemorrhagic lacunar infarct of indeterminate age, measuring approximately 9.3mmx5.9mm is seen in the posterior aspect of the left basal ganglia. -Brain MRI: Acute nonhemorrhagic infarct in the Left periventricular white matter in the posterior aspect of left basal ganglia just lateral to the thalamus extending superiorly and medially to the left ventricular wall margin. There are few foci of chronic small vessel infarction in the periventricular white matter. -Carotid doppler: No doppler evidence of a high-grade carotid artery stenosis. -Echo: Would consider NATI if clinically indicated. Mild concentric left ventricular hypertrophy. The transmitral spectral Doppler flow pattern is suggestive of impaired LV relaxation. LV systolic function is normal. EF 50-55% . The interatrial septum is not well seen. Mild mitral valve thickening. Trace MR. mild TR. Nodular thickening of the aortic valve leaflets likely represents area of focal calcification. No pericardial effusion. HOSPITAL COURSE: Date of Admission:05/03/18 Date of Discharge: 05/08/18 Patient is a 67 year old female with past medical history of HTN, HLD and NIDDM , presented with RUE and RLE weakness and numbness for a few days. Neurology consulted. Brain MRI done showed acute nonhemorrhagic infarct in the left periventricular white matter in the posterior aspect of left basal ganglia just lateral to the thalamus extending superiorly and medially to the left ventricular wall margin. Patient was started on aspirin and Plavix 75mg. Blood pressure medications were changed to Lisinopril, Amlodipine and Lopressor to achieve better blood pressure control. Januvia was added as well to metformin for control of blood glucose. Patient remained stable the rest of the hospital stay. Physical therapy was done and recommended patient would benefit short term rehab. Patient was discharged to [place] for further physical therapy. Minutes to complete discharge: 40 Discharge Summary Reason For Visit: LACUNAR INFARCTION Current Active Problems Lacunar infarction (Acute) Poor hypertension control (Acute) Condition: Improved - Instructions Diet, Activity, Other Instructions: You were admitted because you had right arm and leg weakness. MRI of the brain was done which showed you had a stroke. You were started on new medications. Please take the following as prescribed: 1. Lisinopril 20mg daily. 2. Lopressor 12.5 mg twice a day. 3. Amlodipine 10mg daily. 4. Lipitor 80 mg daily at night. 5. Plavix 75 mg once a day. 6. Januvia 50mg daily. Please STOP taking the following medications: 1. Lisinopril/HCTZ 20-25mg daily 2. Pravastatin 40 mg daily Continue the following medication: 1. Metformin 500mg daily. You were started on blood thinners. It is important to know that it increases your risk of bleeding. Please go to the ED if you have any fall, bleeding or bruising. Follow-ups: -Please follow-up with the neurologist (Dr. Argueta) within 1-2 weeks. -Follow-up with your primary care doctor within 1 week. Call the medical clinic at [facility] to schedule an appointment with Dr. Saleem (Sunday 8am-12pm). Call 911 or go to the ED if with any worsening weakness, numbness, fever, chills , headache, dizziness, chest pain, shortness of breath, diarrhea or any new concerns noted. Referrals: [facility] [place] [facility] [place] [Provider Group] - 1 Week (Call the medical clinic at [facility] to schedule an appointment with Dr. Saleem (Sunday 8am-12pm ).) Stephen Argueta MD [Staff Physician] - 2 Weeks Disposition: [facility] - Home Medications Comprehensive Discharge Medication List: Ambulatory Orders metFORMIN HCL [Metformin HCl] 500 mg PO DAILY 05/03/18 Acetaminophen [Tylenol .Regular Strength -] 650 mg PO Q6H PRN tablet 05/08/18 Amlodipine Besylate [Norvasc -] 10 mg PO DAILY tablet 05/08/18 Aspirin Coated [Ecotrin -] 81 mg PO DAILY tablet.ec 05/08/18 Atorvastatin Ca [Lipitor] 80 mg PO HS tablet 05/08/18 Clopidogrel Bisulfate [Plavix -] 75 mg PO DAILY tablet 05/08/18 Lisinopril [Prinivil] 20 mg PO DAILY tablet 05/08/18 Metoprolol Tartrate [Lopressor -] 12.5 mg PO BID tablet 05/08/18 Sennosides [Senna -] 2 tab PO HS PRN tablet 05/08/18 Sitagliptin Phosphate [Januvia -] 50 mg PO DAILY@0700 tablet 05/08/18 This patient is new to me today: No Emergency Visit: Yes ED Registration Date: 05/03/18 Care time: The patient presented to the Emergency Department on the above date and was hospitalized for further evaluation of their emergent condition. Critical Care patient: No - Discharge Referral Referred to [facility] No
== END 2018-05-08 18:12 | DRG 65 ==
LOC: JER 10:29 → JERBED 13:40 → J4S 21:09
PROVIDERS: ADMIT Internal Medicine; ATTEND Internal Medicine
DX: I63.81 Other cerebral infarction due to occlusion or stenosis of small artery (principal); G81.91 Hemiplegia, unspecified affecting right dominant side; R47.81 Slurred speech; R29.810 Facial weakness; E66.9 Obesity, unspecified; Z68.31 Body mass index [BMI] 31.0-31.9, adult; I10 Essential (primary) hypertension; E11.42 Type 2 diabetes mellitus with diabetic polyneuropathy; E78.5 Hyperlipidemia, unspecified; Z79.84 Long term (current) use of oral hypoglycemic drugs; Z91.14 Patient's other noncompliance with medication regimen; M54.30 Sciatica, unspecified side
CPT/HCPCS: 36415; 70450-TC; 70551-TC; 80048; 80053; 81003; 82465; 82550; 82553; 82607; 82962; 83036; 83718; 83721; 83735; 84100; 84443; 84478; 84484; 85025; 85610; 86850; 86900; 86901; 93005; 93010; 93306-TC; 93880-TC; 97116-GP; 97161-GP; 99285-25; J1644

== ENCOUNTER 2018-11-18 13:55 | Emergency (ER) | payer OTHER ==
[2018-11-18 14:01] VITALS: BP 170/75; PULSE 79; TEMP 98.5; BMI 32.0
--- NOTE | 2018-11-18 14:01 | PDOC ---
Rapid Medical Evaluation Time Seen by Provider: 11/18/18 13:57 Medical Evaluation: Allergies Allergy/AdvReac Type Severity Reaction Status Date / Time No Known Allergies Allergy Verified 05/03/18 10:54 11/18/18 13:58 This patient had a brief in-person evaluation by me. cc: left hip pain radiating down left leg 10/22/18 denies injury or fall. PE:NAD ambulate with steady gait no mid spinal tenderness, or tenderness of left hip + sensation on left leg Orders: none This patient will proceed to Ed for further evaluation 11/18/18 14:01 Discharge Disposition - Diagnosis Lower back pain - Referrals - Patient Instructions - Post Discharge Activity
--- NOTE | 2018-11-18 14:33 | PDOC ---
History of Present Illness - General Chief Complaint: Pain Stated Complaint: LT LEG PAIN Time Seen by Provider: 11/18/18 13:57 History Source: Patient Exam Limitations: Clinical Condition - History of Present Illness Initial Comments: 11/18/18 15:43 Patient with no significant past medical history present with complaint of 4 day history of pain to left lower hip radiating down to posterior aspect of left thigh which has been persistent. Patient reported increased pain when she laid down or getting up from laying position. Denies trauma or injury to back or hip. Report tingling sensation to posterior aspect of left lower extremity. Denies any other symptoms Timing/Duration: other Past History - Past Medical History Allergies/Adverse Reactions: Allergies Allergy/AdvReac Type Severity Reaction Status Date / Time No Known Allergies Allergy Verified 11/18/18 14:01 Home Medications: Ambulatory Orders metFORMIN HCL [Metformin HCl] 500 mg PO DAILY 05/03/18 Acetaminophen [Tylenol .Regular Strength -] 650 mg PO Q6H PRN tablet 05/08/18 Amlodipine Besylate [Norvasc -] 10 mg PO DAILY tablet 05/08/18 Aspirin Coated [Ecotrin -] 81 mg PO DAILY tablet.ec 05/08/18 Atorvastatin Ca [Lipitor] 80 mg PO HS tablet 05/08/18 Clopidogrel Bisulfate [Plavix -] 75 mg PO DAILY tablet 05/08/18 Lisinopril [Prinivil] 20 mg PO DAILY tablet 05/08/18 Metoprolol Tartrate [Lopressor -] 12.5 mg PO BID tablet 05/08/18 Sennosides [Senna -] 2 tab PO HS PRN tablet 05/08/18 Sitagliptin Phosphate [Januvia -] 50 mg PO DAILY@0700 tablet 05/08/18 Methocarbamol [Robaxin -] 500 mg PO BID #14 tablet 11/18/18 Naproxen 500 mg PO BID PRN #20 tablet 11/18/18 COPD: No CHF: No Diabetes: Yes HTN: Yes (non compliant with meds) Hypercholesterolemia: Yes - Suicide/Smoking/Psychosocial Hx Smoking History: Never smoked Have you smoked in the past 12 months: No Information on smoking cessation initiated: No Hx Alcohol Use: No Drug/Substance Use Hx: No Substance Use Type: None Hx Substance Use Treatment: No Review of Systems - Review of Systems Able to Perform ROS?: Yes Is the patient limited Taiwanese proficient: No Constitutional: No: Malaise, Weakness HEENTM: No: Symptoms Reported Respiratory: No: Symptoms reported Cardiac (ROS): No: Symptoms Reported ABD/GI: No: Symptoms Reported Musculoskeletal: Yes: Symptoms Reported, See HPI, Muscle Pain (left lower back) Integumentary: Yes: Symptoms Reported Neurological: Yes: Symptoms reported, See HPI, Tingling (left posterior thigh). No: Weakness All Other Systems: Reviewed and Negative *Physical Exam - Vital Signs Last Vital Signs Temp Pulse Resp BP Pulse Ox 98.5 F 79 18 170/75 99 11/18/18 13:58 11/18/18 13:58 11/18/18 13:58 11/18/18 13:58 11/18/18 13:58 - Physical Exam Comments: 11/18/18 14:53 GENERAL: Well developed, well nourished. Awake and alert in mild acute distress. CARDIOVASCULAR: Regular rate and rhythm. No murmurs, rubs, or gallops. PULMONARY: No evidence of respiratory distress. MUSCULOSKELETAL : mild tenderness over posterior paravertebral muscle lower lumbar sacral spine of L4-S2 on left side. No bony deformities SKIN: Warm and dry. Normal capillary refill. NEUROLOGICAL: Alert, awake, appropriate. No motor deficits in the lower extremities. Gait is normal without ataxia. PSYCHIATRIC: Cooperative. Good eye contact. Appropriate mood and affect. General Appearance: Yes: Nourished, Appropriately Dressed, Apparent Distress, Mild Distress ED Treatment Course - RADIOLOGY Radiology Studies Ordered: Category Date Time Status SPINE-LUMBAR SACRAL [RAD] Stat Radiology 11/18/18 14:20 Ordered Medical Decision Making - Medical Decision Making 11/18/18 15:44 Patient with no significant past medical history present with complaint of 4 day history of pain to left lower hip radiating down to posterior aspect of left thigh which has been persistent. Patient reported increased pain when she laid down or getting up from laying position. Denies trauma or injury to back or hip. Report tingling sensation to posterior aspect of left lower extremity. Denies any other symptoms Exam significant for mild tenderness to left paravertebral muscle of lower lumbosacral of L4-S2 with positive straight leg test at 70 angle to left lower extremity otherwise normal exam. Symptoms likely sciatica from back spasm. X-ray of lumbosacral shows straightening of the lumbar spine consistent with spasm. Naproxen 500 mg by mouth and Robaxin 500 mg by mouth ordered for pain and spasm. Patient stable for discharge on naproxen and Robaxin as needed for pain and spasm with orthopedist spine follow-up *DC/Admit/Observation/Transfer Diagnosis at time of Disposition: Sciatica of left side Lower back pain Qualifiers: Chronicity: acute Back pain laterality: left Sciatica presence: with sciatica Sciatica laterality: sciatica of right side Qualified Code(s): M54.41 - Lumbago with sciatica, right side - Discharge Dispostion Disposition: HOME Condition at time of disposition: Stable Decision to Admit order: No - Prescriptions Prescriptions: Methocarbamol [Robaxin -] 500 mg PO BID #14 tablet Naproxen 500 mg PO BID PRN #20 tablet PRN Reason: pain - Referrals Referrals: Tyrese Troncoso MD, [facility] [Staff Physician] - - Patient Instructions Printed Discharge Instructions: Sciatica, DI for Sciatica Additional Instructions: Your back x-rays shows spasm of lumber spine which could be causing your pain. Take medications as prescribed. Apply hot compress to back as needed . Follow- up with referred orthopedics machine shop specialist if no improvement in 4 days - Post Discharge Activity
[2018-11-18] MEDS ORDERED: NAPROXEN 500 MG TABLET (FP) PO ONE (15:03)
[2018-11-18] MEDS ORDERED: METHOCARBAMOL 500 MG TABLET PO ONE (15:03)
[2018-11-18] MEDS ORDERED: METHOCARBAMOL 500 MG TABLET ONE (15:10)
[2018-11-18] MEDS ORDERED: NAPROXEN 500 MG TABLET (FP) ONE (15:10)
== END 2018-11-18 15:15 | disposition home or self-care (01) ==
LOC: JERFT 13:55
DX: M54.42 Lumbago with sciatica, left side (principal); I10 Essential (primary) hypertension; E78.00 Pure hypercholesterolemia, unspecified; E11.9 Type 2 diabetes mellitus without complications; Z79.84 Long term (current) use of oral hypoglycemic drugs
CPT/HCPCS: 72100-TC-FY; 99281-25

== ENCOUNTER 2018-11-22 16:39 | Emergency (ER) | payer OTHER ==
--- NOTE | 2018-11-22 16:48 | PDOC ---
Rapid Medical Evaluation Time Seen by Provider: 11/22/18 16:46 Medical Evaluation: Allergies Allergy/AdvReac Type Severity Reaction Status Date / Time No Known Allergies Allergy Verified 11/18/18 14:01 11/22/18 16:46 I have performed a brief in-person evaluation of this patient. The patient presents with a chief complaint of: atraumatic left knee pain Pertinent physical exam findings: No tenderness to RLE. FAROM. I have ordered the following: nothing The patient will proceed to the ED for further evaluation. 11/22/18 16:49 Discharge Disposition - Diagnosis Right knee pain - Referrals - Patient Instructions - Post Discharge Activity
[2018-11-22 16:50] VITALS: BP 164/61; PULSE 70; TEMP 97.6; BMI 30.9
[2018-11-22] MEDS ORDERED: traMADol HCL 50 MG TABLET PO ONE (17:24)
[2018-11-22] MEDS ORDERED: traMADol HCL 50 MG TABLET ONE (17:24)
--- NOTE | 2018-11-22 17:30 | PDOC ---
History of Present Illness - General Chief Complaint: Pain Stated Complaint: LT LEG PAIN Time Seen by Provider: 11/22/18 16:46 History Source: Patient, Family - History of Present Illness Initial Comments: 11/22/18 17:25 Patient wants son to translate did not want literature professor phone Complaint: Leg pain Patient is a 68-year-old female with history of hyperlipidemia, hypertension, NIDDM, CVA who is been having left leg pain since October. Patient first measures to her primary care doctor in October, patient states that her doctor didn't say anything about it. She was seen in the ER here 2 days ago for same thing which now seems to be getting worse. No numbness, no specific back pain but does have some posterior buttocks pain. Patient has no incontinence or saddle anesthesia. Patient is ambulatory. She is taking Naprosyn and tizanidine. Patient states meds are not helping and pain is getting worse. GENERAL/CONSTITUTIONAL: No fever, weakness. dizziness HEAD, EYES, EARS, NOSE AND THROAT: No change in vision. No ear pain or discharge. No sore throat. CARDIOVASCULAR: No chest pain RESPIRATORY: No shortness of breath or cough GASTROINTESTINAL: No pain, nausea, vomiting, diarrhea or constipation GENITOURINARY: No dysuria MUSCULOSKELETAL: No neck or back pain, + leg pain SKIN: No rash NEUROLOGIC: No headache, vertigo, loss of consciousness, or loss of sensation. GENERAL: The patient is awake, alert, and fully oriented, in no acute distress. HEAD: Normal with no signs of trauma. EYES: Pupils equal, round and reactive to light, sclera anicteric, conjunctiva clear. ENT: pharynx: no erythema, no exudate, uvula midline NECK: supple CHEST: clear, nontender, rr ABD: soft, nontender BACK: no tenderness or signs of injury EXTREMITIES: Left lower leg, no swelling, no erythema, no tenderness, neurovascular intact. Rest of extremities normal range of motion, no edema. NEUROLOGICAL: Normal speech, patient able to ambulate SKIN: Warm, Dry Past History - Past Medical History Allergies/Adverse Reactions: Allergies Allergy/AdvReac Type Severity Reaction Status Date / Time No Known Allergies Allergy Verified 11/22/18 16:51 Home Medications: Ambulatory Orders metFORMIN HCL [Metformin HCl] 500 mg PO DAILY 05/03/18 Acetaminophen [Tylenol .Regular Strength -] 650 mg PO Q6H PRN tablet 05/08/18 Amlodipine Besylate [Norvasc -] 10 mg PO DAILY tablet 05/08/18 Aspirin Coated [Ecotrin -] 81 mg PO DAILY tablet.ec 05/08/18 Atorvastatin Ca [Lipitor] 80 mg PO HS tablet 05/08/18 Clopidogrel Bisulfate [Plavix -] 75 mg PO DAILY tablet 05/08/18 Lisinopril [Prinivil] 20 mg PO DAILY tablet 05/08/18 Metoprolol Tartrate [Lopressor -] 12.5 mg PO BID tablet 05/08/18 Sennosides [Senna -] 2 tab PO HS PRN tablet 05/08/18 Sitagliptin Phosphate [Januvia -] 50 mg PO DAILY@0700 tablet 05/08/18 Cyclobenzaprine HCl [Flexeril 10 mg] 10 mg PO BID PRN #20 tablet 11/18/18 Methocarbamol [Robaxin -] 500 mg PO BID #14 tablet 11/18/18 Naproxen 500 mg PO BID PRN #20 tablet 11/18/18 Oxycodone HCl/Acetaminophen [Percocet 5-325 mg Tablet] 1 tab PO Q6H #20 tablet MDD 4 11/22/18 COPD: No CHF: No Diabetes: Yes HTN: Yes (non compliant with meds) Hypercholesterolemia: Yes - Suicide/Smoking/Psychosocial Hx Smoking History: Never smoked Have you smoked in the past 12 months: No Hx Alcohol Use: No Drug/Substance Use Hx: No Substance Use Type: None Hx Substance Use Treatment: No *Physical Exam - Vital Signs Last Vital Signs Temp Pulse Resp BP Pulse Ox 97.6 F 70 16 164/61 98 11/22/18 16:46 11/22/18 16:46 11/22/18 16:46 11/22/18 16:46 11/22/18 16:46 Medical Decision Making - Medical Decision Making 11/22/18 17:29 68-year-old female with history of hyperlipidemia, hypertension, NIDDM and CVA with ongoing issue with left leg pain since October. Patient had x-ray of her lower back 2 days ago. Patient his son on Naprosyn and tizanidine which are not helping. Given patient's history, would not encourage continuation of NSAIDs, prednisone. After long discussion with patient and son, patient lives with son, we'll trial tramadol. They know this is a difficult situation and the need to follow-up with a spine doctor Son says that patient has had Percocet and has done well with it, she lives with them, patient and son would like to have Percocet to go home with Discussed issues, findings, results, applicable medications and treatments and follow-up. All these were understood and all questions were answered 11/22/18 18:43 *DC/Admit/Observation/Transfer Diagnosis at time of Disposition: Sciatic leg pain - Discharge Dispostion Disposition: HOME Condition at time of disposition: Stable Decision to Admit order: No - Prescriptions Prescriptions: Oxycodone HCl/Acetaminophen [Percocet 5-325 mg Tablet] 1 tab PO Q6H #20 tablet MDD 4 - Referrals - Patient Instructions Printed Discharge Instructions: DI for Prescription Opioid Use Additional Instructions: You can take the Percocet up to 4 times a day, try to take it the least amount of times per day that you need. Return to the ER if severe pain, unable to walk, numbness, incontinence, fever or feeling ill. Follow-up at the [facility] spine group, call the number given to you on the handout - Post Discharge Activity
== END 2018-11-22 18:22 | disposition home or self-care (01) ==
LOC: JERFT 16:39
DX: M54.32 Sciatica, left side (principal); I10 Essential (primary) hypertension; E78.5 Hyperlipidemia, unspecified; E11.9 Type 2 diabetes mellitus without complications; Z79.84 Long term (current) use of oral hypoglycemic drugs; Z86.73 Personal history of transient ischemic attack (TIA), and cerebral infarction without residual deficits
CPT/HCPCS: 99282-25

== ENCOUNTER 2019-11-20 14:30 | Inpatient (IN) | payer OTHER ==
--- NOTE | 2019-11-20 14:39 | PDOC ---
Rapid Medical Evaluation Time Seen by Provider: 11/20/19 14:31 Medical Evaluation: Allergies Allergy/AdvReac Type Severity Reaction Status Date / Time No Known Allergies Allergy Verified 11/22/18 16:51 11/20/19 14:36 I performed a brief in-person evaluation of this patient. 69 y/o female who presents to the ED with complaint of RUQ and epigastric abdominal pain that started since last night. She denies any fevers. She admits to making herself vomit as she thought her food was making her sick. She denies any diarrhea. Pertinent physical exam findings: RUQ and epigastric abd tenderness to palpation. Nontoxic. I have ordered the following: labs, ekg, saline lock, RUQ US Patient to proceed to ED for further evaluation. Discharge Disposition - Diagnosis RUQ abdominal pain - Referrals - Patient Instructions - Post Discharge Activity
--- NOTE | 2019-11-20 16:19 | EKG ---
Test Reason : Blood Pressure : / mmHG Vent. Rate : 067 BPM Atrial Rate : 067 BPM P-R Int : 132 ms QRS Dur : 108 ms QT Int : 388 ms P-R-T Axes : 043 -21 -42 degrees QTc Int : 409 ms NORMAL SINUS RHYTHM MINIMAL VOLTAGE CRITERIA FOR LVH, MAY BE NORMAL VARIANT NONSPECIFIC T WAVE ABNORMALITY ABNORMAL ECG WHEN COMPARED WITH ECG OF 03-MAY-2018 10:46, ST NO LONGER DEPRESSED IN LATERAL LEADS NONSPECIFIC T WAVE ABNORMALITY NOW EVIDENT IN INFERIOR LEADS NONSPECIFIC T WAVE ABNORMALITY HAS REPLACED INVERTED T WAVES IN LATERAL LEADS Confirmed by RAJNI HAMILTON, KEYONNA ([id number]) on 11/20/2019 4:19:27 PM Referred By: Confirmed By:KEYONNA URBAN MD
--- NOTE | 2019-11-20 16:22 | PDOC ---
History of Present Illness - General History Source: Patient Exam Limitations: Language Barrier - History of Present Illness Initial Comments: 11/20/19 17:25 69-year-old female past medical history hypertension hyperlipidemia CAD on Plavix diabetes Portuguese-speaking accompanied by son who is pens and pencils repairer presents the ED complaining of right upper quadrant and epigastric pain since last night which is now resolved and patient is now complaining of pain in the left lower quadrant.Pt states the pain came on after eating veggie lomain. Patient states that she has no nausea but forced herself to throw up thinking will make her feel better. Patient describes pain as gas-like in nature. Patient has no abdominal surgeries except for section many years ago. Did not take any medicine for abdominal pain. Pt otherwise denies: fevers, chills, syncope, lightheadedness, dizziness, headaches, neck pain, chest pain, shortness of breath, palpitations, back pain, nausea, diarrhea, constipation. 11/20/19 17:38 <Mark Velazquez - Last Filed: 11/20/19 22:06> <Selam Coles - Last Filed: 11/21/19 17:30> - General Chief Complaint: Pain Stated Complaint: ABD PAIN Time Seen by Provider: 11/20/19 14:31 Past History - Medical History COPD: No CHF: No Diabetes: Yes HTN: Yes (non compliant with meds) Hypercholesterolemia: Yes - Psycho-Social/Smoking History Smoking History: Never smoked Have you smoked in the past 12 months: No Information on smoking cessation initiated: No - Substance Abuse Hx (Audit-C & DAST Scrn) How often the patient has a drink containing alcohol: Never Score: In Men: 4 or > Positive; In Women: 3 or > Positive: 0 Screen Result (Pos requires Nsg. Audit-10AR): Negative In the last yr the pt used illegal drug/Rx for NonMed reason: No Score: Yes response is considered Positive: 0 Screen Result (Positive result requires Nsg. DAST-10): Negative <Mark Velazquez - Last Filed: 11/20/19 22:06> <Selam Coles - Last Filed: 11/21/19 17:30> - Medical History Allergies/Adverse Reactions: Allergies Allergy/AdvReac Type Severity Reaction Status Date / Time No Known Allergies Allergy Verified 11/20/19 14:39 Home Medications: Ambulatory Orders Amlodipine Besylate 10 mg PO DAILY 11/21/19 Aspirin 81 mg PO DAILY 11/21/19 Atorvastatin Ca [Lipitor] 80 mg PO HS 11/21/19 Carvedilol [Coreg -] 6.25 mg PO BID 11/21/19 Clopidogrel Bisulfate [Clopidogrel] 75 mg PO DAILY 11/21/19 Lisinopril [Prinivil -] 40 mg PO DAILY 11/21/19 Pantoprazole Sodium [Protonix] 40 mg PO DAILY 11/21/19 Sitagliptin Phosphate [Januvia] 100 mg PO DAILY 11/21/19 metFORMIN HCL [Metformin HCl] 1,000 mg PO BID 11/21/19 Review of Systems - Review of Systems Constitutional: No: Chills, Fever, Weakness HEENTM: No: Blurred Vision Respiratory: No: Orthopnea, Shortness of Breath, Wheezing Cardiac (ROS): No: Chest Pain ABD/GI: Yes: Abdominal Distended, Vomiting. No: Constipated, Diarrhea, Nausea, Tarry Stools : No: Burning, Dysuria Musculoskeletal: No: Back Pain, Joint Pain Integumentary: No: Bruising Neurological: No: Headache, Numbness, Paresthesia, Seizure, Tremors <Mark Velazquez - Last Filed: 11/20/19 22:06> *Physical Exam - Vital Signs Last Vital Signs Temp Pulse Resp BP Pulse Ox 98.3 F 72 17 151/72 99 11/20/19 14:37 11/20/19 14:37 11/20/19 14:37 11/20/19 14:37 11/20/19 14:37 - Physical Exam 11/20/19 17:28 Gen: AAOx 3, no acute distress, comfortable, no signs of respiratory distress HENT: atraumatic, normocephalic with no laceration or contusion. Nasal mucosa without erythema. Oropharynx without erythema or exudates. Mucous membranes moist. EYES: PERRL, EOM intact, conjunctiva pink NECK: supple; trachea midline; no JVD, no lymphadenopathy, or thyromegaly CV: RRR no murmurs, gallops, or rubs. CHEST: CTA b/l no wheezing, rales or rhonchi ABD: +BS/ND. TTP in LLQ with voluntary guarding; rest of abdomen soft, no rebound, no guarding, negative murphys sign EXTREMITY: no cyanosis or erythema. 2+ dorsalis pedis, posterior tibial, and radial pulse. No pedal edema; no calf swelling or tenderness SKIN: no rash, warm and dry, no diaphoresis HEME: no purpura or ecchymosis NEURO: normal speech, CN II-XII intact, sensation intact, normal gait, no cerebellar deficits MS: 5/5 strength in all extremities, FROM intact in all extremities. <Mark Velazquez - Last Filed: 11/20/19 22:06> - Vital Signs Last Vital Signs Temp Pulse Resp BP Pulse Ox 98.2 F 74 20 148/57 L 97 11/21/19 17:26 11/21/19 17:26 11/21/19 17:26 11/21/19 17:26 11/21/19 16:33 <Selam Coles - Last Filed: 11/21/19 17:30> ED Treatment Course - LABORATORY CBC & Chemistry Diagram: 11/20/19 15:40 11/20/19 15:40 <Mark Velazquez - Last Filed: 11/20/19 22:06> - LABORATORY CBC & Chemistry Diagram: 11/21/19 09:10 11/21/19 09:10 - ADDITIONAL ORDERS Additional order review: 11/20/19 15:40 RBC 4.71 MCV 89.4 MCHC 34.2 RDW 12.4 MPV 9.6 Neutrophils % 82.5 D Lymphocytes % 10.7 D Monocytes % 6.3 Eosinophils % 0.2 D Basophils % 0.3 - Medications Given in the ED: ED Medications Discontinued Medications Generic Name Dose Route Start Last Admin Trade Name Freq PRN Reason Stop Dose Admin Piperacillin Sod/Tazobactam 50 mls @ 100 mls/hr 11/20/19 21:20 11/20/19 23:24 Sod 3.375 gm/ Dextrose IVPB 11/20/19 21:49 100 mls/hr ONCE ONE Administration Protocol Potassium Chloride 20 meq 11/21/19 11:18 11/21/19 11:42 K-Dur - PO 11/21/19 11:19 20 meq ONCE ONE Administration Sodium Polystyrene Sulfonate 15 gm 11/21/19 08:46 11/21/19 09:10 Kayexalate - PO 11/21/19 08:47 15 gm ONCE ONE Administration <Selam Coles - Last Filed: 11/21/19 17:30> Medical Decision Making - Medical Decision Making 69-year-old female with multiple comorbidities presented to the ED with left low er quadrant pain Vital signs stable Possible gallbladder etiology since initial pain was in the right upper quadrant but patient's presentation also suspicious for diverticulitis Will also rule out ACS Will obtain CBC CMP lipase cardiac profile UA UC ultrasound right upper quadrant and CT abdomen pelvis with contrast Will reassess based on results EKG NSR at 67BPM ST depressions in III V5 and V6 unchanged from EKG on 06/30/18 Ultrasound shows cholelithiasis with thick-walled gallbladder acute cholecystitis cannot be excluded Hepatomegaly and diffuse fatty liver Labs: WBC 15.6 Na 132 K 5.3 (no st elevations on EKG) Trop negative CT shows thick-walled gallbladder with pericholecystic fluid no evidence of cholelithiasis or biliary ductal dilation no evidence of diverticulitis or acute pathology within the abdomen or pelvis Surgery consulted, spoke with Dr Chadwick who will see pt in AM, please make pt NPO and hold plavix. Pt admitted to medicine for further management. 11/20/19 21:17 <Mark Velazquez - Last Filed: 11/20/19 22:06> - Medical Decision Making The patient was seen and evaluated in conjunction with midlevel provider under my direct supervision, ancillary studies were reviewed. I agree with the plan as outlined withBRODIE Velazquez. HPI, workup/dispo as outlined. VS reviewed, wnl. Vital Signs Temp Pulse Resp BP Pulse Ox 98.2 F 74 20 148/57 L 97 11/21/19 17:26 11/21/19 17:26 11/21/19 17:26 11/21/19 17:26 11/21/19 16:33 Imaging reveals acute cholecystitis, admission is warranted. Surgery is consulted, Dr. Chadwick will come and see and potentially operate, keep n.p.o., fluids. Admitted to medicine for further management 11/21/19 17:29 <Selam Coles - Last Filed: 11/21/19 17:30> Discharge - Discharge Information Problems reviewed: Yes - Admission Yes <Mark Velazquez - Last Filed: 11/20/19 22:06> - Discharge Information Problems reviewed: Yes - Admission Yes <Selam Coles - Last Filed: 11/21/19 17:30> - Discharge Information Clinical Impression/Diagnosis: RUQ abdominal pain, Acute cholecystitis Condition: Fair
[2019-11-20 18:21] LABS: BASO % 0.3 % (0-2.0); EOS % 0.2 % (0-4.5); HEMATOCRIT 42.1 % (32.4-45.2); HEMOGLOBIN 14.4 GM/dL (10.7-15.3); LYMPH % 10.7 % (8-40); MCH 30.6 pg (25.7-33.7); MCHC 34.2 g/dl (32.0-36.0); MEAN CELL VOLUME 89.4 fl (80-96); MEAN PLT VOLUME 9.6 fl (7.5-11.1); MONO % 6.3 % (3.8-10.2); NEUT % 82.5 % (42.8-82.8); PLATELET COUNT 361 K/MM3 (134-434); RBC 4.71 M/mm3 (3.60-5.2); RDW 12.4 % (11.6-15.6); WHITE BLOOD COUNT 15.6 K/mm3 (4.0-10.0)
[2019-11-20 18:32] LABS: INR 1.02 (0.83-1.09)
[2019-11-20 18:34] LABS: ACTIVATED PTT 27.8 SECONDS (25.2-36.5)
[2019-11-20 18:56] LABS: ALBUMIN 4.2 g/dl (3.4-5.0); ALK PHOS 100 U/L (45-117); ANION GAP 12 MMOL/L (8-16); BILIRUBIN,TOTAL 0.8 mg/dL (0.2-1); CALCIUM 9.1 mg/dL (8.5-10.1); CHLORIDE 98 mmol/L (98-107); CO2 22 mmol/L (21-32); CREATININE 0.8 mg/dL (0.55-1.3); GLUCOSE,RANDOM 157 mg/dL (74-106); LIPASE 156 U/L (73-393); POTASSIUM 5.3 mmol/L (3.5-5.1); SGOT/AST 44 U/L (15-37); SGPT/ALT 29 U/L (13-61); SODIUM 132 mmol/L (136-145); TOT PROT 7.9 g/dl (6.4-8.2)
[2019-11-20] MEDS ORDERED: PIPERACILLIN/TAZOB 3.375 GM 3.375 GM in DEXTROSE 5%-WATER - 50 ML IVPB ONE (21:20)
[2019-11-20] MEDS ORDERED: PIPERACILLIN/TAZOB 3.375 GM 3.375 GM/50 ML BAG IVPB ONE (23:14)
[2019-11-20 23:27] LABS: EPI CELLS 16 /uL (0-25.1); HYALINE CASTS 3 /uL (0-3.1); URINE APPEARANCE CLEAR; URINE BACTERIA 82 /uL (0-1359); URINE BILIRUBIN NEGATIVE (NEGATIVE); URINE COLOR YELLOW; URINE GLUCOSE (UA) TRACE (NEGATIVE); URINE KETONE TRACE (NEGATIVE); URINE LEUK ESTERASE NEGATIVE (NEGATIVE); URINE NITRITE NEGATIVE (NEGATIVE); URINE PROTEIN 1+ (NEGATIVE); URINE RBC 27 /uL (0-23.9); URINE WBC 10 /uL (0-25.8)
--- NOTE | 2019-11-21 05:11 | HP ---
<Christiane Mtz - Last Filed: 11/21/19 06:02> CHIEF COMPLAINT: RUQ abdominal pain HISTORY OF PRESENT ILLNESS: Pt is a 69 yo F with PMHx of HTN, HLD, CAD presenting to the ED with RUQ epigastric pain since last night, and LLQ pain. Pt states the pain was worse yesterday, but now has almost completely subsided. Does admit to pain on palpation in RUQ and LLQ. Pt states she wasn't eating before or during the pain starting. Pt denies nausea, but forced herself to vomit because she believed it would improve her symptoms, it did not. Pt denies diarrhea, constipation, fever, chills, CP, SOB. Pt states she also has been having numbness in her RLE for the past year and LLE for the last month that has progressively worsened. Pt states it is most pronounced in the soles of her feet. Has not seen a circular ripsaw operator in the past. EKG shows NSR, ST depressions in lead III, V5 and V6 which is unchanged from her last EKG in 2019. Recent Travel: PAST MEDICAL HISTORY: PAST SURGICAL HISTORY: Social History: Smoking: Never smoker Alcohol: Denies Drugs: Denies Allergies No Known Allergies Allergy (Verified 11/20/19 14:39) HOME MEDICATIONS: Home Medications Medication Instructions Recorded metFORMIN HCL [Metformin HCl] 500 mg PO DAILY 05/03/18 Acetaminophen [Tylenol .Regular 650 mg PO Q6H PRN tablet 05/08/18 Strength -] Amlodipine Besylate [Norvasc -] 10 mg PO DAILY tablet 05/08/18 Aspirin Coated [Ecotrin -] 81 mg PO DAILY tablet.ec 05/08/18 Atorvastatin Ca [Lipitor] 80 mg PO HS tablet 05/08/18 Clopidogrel Bisulfate [Plavix -] 75 mg PO DAILY tablet 05/08/18 Lisinopril [Prinivil] 20 mg PO DAILY tablet 05/08/18 Metoprolol Tartrate [Lopressor -] 12.5 mg PO BID tablet 05/08/18 Sennosides [Senna -] 2 tab PO HS PRN tablet 05/08/18 Sitagliptin Phosphate [Januvia -] 50 mg PO DAILY@0700 tablet 05/08/18 Cyclobenzaprine HCl [Flexeril 10 10 mg PO BID PRN #20 tablet 11/18/18 mg] Methocarbamol [Robaxin -] 500 mg PO BID #14 tablet 11/18/18 Naproxen 500 mg PO BID PRN #20 tablet 11/18/18 Oxycodone HCl/Acetaminophen 1 tab PO Q6H #20 tablet MDD 4 11/22/18 [Percocet 5-325 mg Tablet] REVIEW OF SYSTEMS CONSTITUTIONAL: Absent: fever, chills, diaphoresis, generalized weakness, malaise, loss of appetite, weight change HEENT: Absent: rhinorrhea, nasal congestion, throat pain, throat swelling, difficulty swallowing, mouth swelling, ear pain, eye pain, visual changes CARDIOVASCULAR: Absent: chest pain, syncope, palpitations, irregular heart rate, lightheadedness, peripheral edema RESPIRATORY: Absent: cough, shortness of breath, dyspnea with exertion, orthopnea, wheezing, stridor, hemoptysis GASTROINTESTINAL: Admits to RUQ and LLQ abdominal pain. Absent: abdominal distension, nausea, vomiting, diarrhea, constipation, melena, hematochezia GENITOURINARY: Absent: dysuria, frequency, urgency, hesitancy, hematuria, flank pain, genital pain MUSCULOSKELETAL: Absent: myalgia, arthralgia, joint swelling, back pain, neck pain SKIN: Absent: rash, itching, pallor HEMATOLOGIC/IMMUNOLOGIC: Absent: easy bleeding, easy bruising, lymphadenopathy, frequent infections ENDOCRINE: Absent: unexplained weight gain, unexplained weight loss, heat intolerance, cold intolerance NEUROLOGIC: Absent: headache, focal weakness or paresthesias, dizziness, unsteady gait, seizure, mental status changes, bladder or bowel incontinence PSYCHIATRIC: Absent: anxiety, depression, suicidal or homicidal ideation, hallucinations. PHYSICAL EXAMINATION Vital Signs - 24 hr 11/20/19 11/20/19 11/21/19 14:37 20:38 01:34 Temperature 98.3 F 97.2 F L 97.8 F Pulse Rate 72 Pulse Rate [ 65 66 Right Brachial] Respiratory 17 18 Rate Blood Pressure 151/72 Blood Pressure 148/63 146/68 [Right Arm] O2 Sat by Pulse 99 99 96 Oximetry (%) 11/21/19 02:21 Temperature 98.9 F Pulse Rate Pulse Rate [ 65 Right Brachial] Respiratory 18 Rate Blood Pressure Blood Pressure 120/54 L [Right Arm] O2 Sat by Pulse 97 Oximetry (%) GENERAL: Awake, alert, and fully oriented, in no acute distress. HEAD: Normal with no signs of trauma. EYES: Pupils equal, round and reactive to light, extraocular movements intact, sclera anicteric, conjunctiva clear. No lid lag. EARS, NOSE, THROAT: Ears normal, nares patent, oropharynx clear without exudates. Moist mucous membranes. NECK: Normal range of motion, supple without lymphadenopathy, JVD, or masses. LUNGS: Breath sounds equal, clear to auscultation bilaterally. No wheezes, and no crackles. No accessory muscle use. HEART: Regular rate and rhythm, normal S1 and S2 without murmur, rub or gallop. ABDOMEN: Tender to palpation in RUQ and LLQ. Soft, not distended, normoactive bowel sounds, no guarding, no rebound, no masses. Hepatomegaly. No splenomegaly. Negative calderon sign. MUSCULOSKELETAL: Normal range of motion at all joints. No bony deformities or tenderness. No CVA tenderness. UPPER EXTREMITIES: 2+ pulses, warm, well-perfused. No cyanosis. No clubbing. No peripheral edema. LOWER EXTREMITIES: 2+ pulses, warm, well-perfused. No calf tenderness. No peripheral edema. NEUROLOGICAL: Cranial nerves II-XII intact. Normal speech. Normal gait. PSYCHIATRIC: Cooperative. Good eye contact. Appropriate mood and affect. SKIN: Warm, dry, normal turgor, no rashes or lesions noted, normal capillary refill. Laboratory Results - last 24 hr 11/20/19 11/20/19 11/20/19 15:40 15:40 15:40 WBC 15.6 H RBC 4.71 Hgb 14.4 Hct 42.1 MCV 89.4 MCH 30.6 MCHC 34.2 RDW 12.4 Plt Count 361 MPV 9.6 Absolute Neuts (auto) 12.9 H Neutrophils % 82.5 D Lymphocytes % 10.7 D Monocytes % 6.3 Eosinophils % 0.2 D Basophils % 0.3 Nucleated RBC % 0 PT with INR INR PTT (Actin FS) Sodium 132 L Potassium 5.3 H Chloride 98 Carbon Dioxide 22 Anion Gap 12 BUN 11.0 Creatinine 0.8 Est GFR (CKD-EPI)AfAm 88.42 Est GFR (CKD-EPI)NonAf 76.29 Random Glucose 157 H Calcium 9.1 Total Bilirubin 0.8 AST 44 H ALT 29 Alkaline Phosphatase 100 Creatine Kinase 190 Creatine Kinase Index No Result Required. CK-MB (CK-2) < 1.0 Troponin I < 0.02 Total Protein 7.9 Albumin 4.2 Lipase 156 Urine Color Yellow Urine Appearance Clear Urine pH 5.0 Ur Specific [place] 1.023 Urine Protein 1+ H Urine Glucose (UA) Trace Urine Ketones Trace H Urine Blood Negative Urine Nitrite Negative Urine Bilirubin Negative Urine Urobilinogen 1.0 Ur Leukocyte Esterase Negative Urine WBC (Auto) 10 Urine RBC (Auto) 27 Urine Casts (Auto) 3 U Epithel Cells (Auto) 16 Urine Bacteria (Auto) 82 11/20/19 15:40 WBC RBC Hgb Hct MCV MCH MCHC RDW Plt Count MPV Absolute Neuts (auto) Neutrophils % Lymphocytes % Monocytes % Eosinophils % Basophils % Nucleated RBC % PT with INR 12.00 INR 1.02 PTT (Actin FS) 27.8 Sodium Potassium Chloride Carbon Dioxide Anion Gap BUN Creatinine Est GFR (CKD-EPI)AfAm Est GFR (CKD-EPI)NonAf Random Glucose Calcium Total Bilirubin AST ALT Alkaline Phosphatase Creatine Kinase Creatine Kinase Index CK-MB (CK-2) Troponin I Total Protein Albumin Lipase Urine Color Urine Appearance Urine pH Ur Specific [place] Urine Protein Urine Glucose (UA) Urine Ketones Urine Blood Urine Nitrite Urine Bilirubin Urine Urobilinogen Ur Leukocyte Esterase Urine WBC (Auto) Urine RBC (Auto) Urine Casts (Auto) U Epithel Cells (Auto) Urine Bacteria (Auto) ASSESSMENT/PLAN: Pt is a 69 yo F with PMHx of HTN, HLD, CAD presenting to the ED with RUQ epigastric pain since last night, and LLQ pain which came on afterwards. RUQ U/S shows gallstones, and WBC is 15.6. #Cholelithiasis -RUQ U/S shows cholelithiasis, hepatomegaly and fatty liver, calculus within neck of bladder -No gangrenous necrosis or emphysematous cholecystitis seen on imaging -ASA risk II -Possibly acute cholecystitis -Surgery consulted -NPO after midnight -Hold plavix for possible surgery -Started on LR -Pain control Tylenol PRN -PT/INR -Continue IV zosyn started in ED; WBC 15.6 #Diabetes mellitus -Blood glucose 157 -On Januvia at home -Start SSI + BGM -Advise pt to follow up with circular ripsaw operator and adhere to diabetes management for LE numbness #Hx of HTN -Continue home Norvasc, Lisinopril #Hx of CAD -Continue home Lipitor -Plavix held #Proteinuria -UA with 1+ protein -Cr 0.8 -Urine protein:Cr ordered #Hyperkalemia -Slightly elevated at 5.3 -Follow up in AM labs #Hyponatremia -Slightly decreased at 132 -Follow up in AM labs FEN: -Monitor electrolytes in AM labs -LR -NPO Prophylaxis: -SCDs ; no chemical therapy due to possible surgery Dispo: Admitted to med-surg. Surgery consulted, NPO after midnight, held plavix for possible surgery. Given Zosyn due to WBC at 15.6. ATTENDING PHYSICIAN STATEMENT I saw and evaluated the patient. I reviewed the resident's note and discussed the case with the resident. I agree with the resident's findings and plan as documented. SUBJECTIVE: OBJECTIVE: ASSESSMENT AND PLAN: <Amira Wright - Last Filed: 11/21/19 06:48> CHIEF COMPLAINT: PCP: HISTORY OF PRESENT ILLNESS: ER course was notable for: (1) (2) (3) Recent Travel: PAST MEDICAL HISTORY: PAST SURGICAL HISTORY: Social History: Smoking: Alcohol: Drugs: Allergies No Known Allergies Allergy (Verified 11/20/19 14:39) HOME MEDICATIONS: Home Medications Medication Instructions Recorded metFORMIN HCL [Metformin HCl] 500 mg PO DAILY 05/03/18 Acetaminophen [Tylenol .Regular 650 mg PO Q6H PRN tablet 05/08/18 Strength -] Amlodipine Besylate [Norvasc -] 10 mg PO DAILY tablet 05/08/18 Aspirin Coated [Ecotrin -] 81 mg PO DAILY tablet.ec 05/08/18 Atorvastatin Ca [Lipitor] 80 mg PO HS tablet 05/08/18 Clopidogrel Bisulfate [Plavix -] 75 mg PO DAILY tablet 05/08/18 Lisinopril [Prinivil] 20 mg PO DAILY tablet 05/08/18 Metoprolol Tartrate [Lopressor -] 12.5 mg PO BID tablet 05/08/18 Sennosides [Senna -] 2 tab PO HS PRN tablet 05/08/18 Sitagliptin Phosphate [Januvia -] 50 mg PO DAILY@0700 tablet 05/08/18 Cyclobenzaprine HCl [Flexeril 10 10 mg PO BID PRN #20 tablet 11/18/18 mg] Methocarbamol [Robaxin -] 500 mg PO BID #14 tablet 11/18/18 Naproxen 500 mg PO BID PRN #20 tablet 11/18/18 Oxycodone HCl/Acetaminophen 1 tab PO Q6H #20 tablet MDD 4 11/22/18 [Percocet 5-325 mg Tablet] REVIEW OF SYSTEMS CONSTITUTIONAL: Absent: fever, chills, diaphoresis, generalized weakness, malaise, loss of appetite, weight change HEENT: Absent: rhinorrhea, nasal congestion, throat pain, throat swelling, difficulty swallowing, mouth swelling, ear pain, eye pain, visual changes CARDIOVASCULAR: Absent: chest pain, syncope, palpitations, irregular heart rate, lightheadedness, peripheral edema RESPIRATORY: Absent: cough, shortness of breath, dyspnea with exertion, orthopnea, wheezing, stridor, hemoptysis GASTROINTESTINAL: Absent: abdominal pain, abdominal distension, nausea, vomiting, diarrhea, constipation, melena, hematochezia GENITOURINARY: Absent: dysuria, frequency, urgency, hesitancy, hematuria, flank pain, genital pain MUSCULOSKELETAL: Absent: myalgia, arthralgia, joint swelling, back pain, neck pain SKIN: Absent: rash, itching, pallor HEMATOLOGIC/IMMUNOLOGIC: Absent: easy bleeding, easy bruising, lymphadenopathy, frequent infections ENDOCRINE: Absent: unexplained weight gain, unexplained weight loss, heat intolerance, cold intolerance NEUROLOGIC: Absent: headache, focal weakness or paresthesias, dizziness, unsteady gait, seizure, mental status changes, bladder or bowel incontinence PSYCHIATRIC: Absent: anxiety, depression, suicidal or homicidal ideation, hallucinations. PHYSICAL EXAMINATION Vital Signs - 24 hr 11/20/19 11/20/19 11/21/19 14:37 20:38 01:34 Temperature 98.3 F 97.2 F L 97.8 F Pulse Rate 72 Pulse Rate [ 65 66 Right Brachial] Respiratory 17 18 Rate Blood Pressure 151/72 Blood Pressure 148/63 146/68 [Right Arm] O2 Sat by Pulse 99 99 96 Oximetry (%) 11/21/19 02:21 Temperature 98.9 F Pulse Rate Pulse Rate [ 65 Right Brachial] Respiratory 18 Rate Blood Pressure Blood Pressure 120/54 L [Right Arm] O2 Sat by Pulse 97 Oximetry (%) GENERAL: Awake, alert, and fully oriented, in no acute distress. HEAD: Normal with no signs of trauma. EYES: Pupils equal, round and reactive to light, extraocular movements intact, sclera anicteric, conjunctiva clear. No lid lag. EARS, NOSE, THROAT: Ears normal, nares patent, oropharynx clear without exudates. Moist mucous membranes. NECK: Normal range of motion, supple without lymphadenopathy, JVD, or masses. LUNGS: Breath sounds equal, clear to auscultation bilaterally. No wheezes, and no crackles. No accessory muscle use. HEART: Regular rate and rhythm, normal S1 and S2 without murmur, rub or gallop. ABDOMEN: Soft, nontender, not distended, normoactive bowel sounds, no guarding, no rebound, no masses. No hepatomegaly or splenomegaly. MUSCULOSKELETAL: Normal range of motion at all joints. No bony deformities or tenderness. No CVA tenderness. UPPER EXTREMITIES: 2+ pulses, warm, well-perfused. No cyanosis. No clubbing. No peripheral edema. LOWER EXTREMITIES: 2+ pulses, warm, well-perfused. No calf tenderness. No peripheral edema. NEUROLOGICAL: Cranial nerves II-XII intact. Normal speech. Normal gait. PSYCHIATRIC: Cooperative. Good eye contact. Appropriate mood and affect. SKIN: Warm, dry, normal turgor, no rashes or lesions noted, normal capillary refill. Laboratory Results - last 24 hr 11/20/19 11/20/19 11/20/19 15:40 15:40 15:40 WBC 15.6 H RBC 4.71 Hgb 14.4 Hct 42.1 MCV 89.4 MCH 30.6 MCHC 34.2 RDW 12.4 Plt Count 361 MPV 9.6 Absolute Neuts (auto) 12.9 H Neutrophils % 82.5 D Lymphocytes % 10.7 D Monocytes % 6.3 Eosinophils % 0.2 D Basophils % 0.3 Nucleated RBC % 0 PT with INR INR PTT (Actin FS) Sodium 132 L Potassium 5.3 H Chloride 98 Carbon Dioxide 22 Anion Gap 12 BUN 11.0 Creatinine 0.8 Est GFR (CKD-EPI)AfAm 88.42 Est GFR (CKD-EPI)NonAf 76.29 POC Glucometer Random Glucose 157 H Calcium 9.1 Total Bilirubin 0.8 AST 44 H ALT 29 Alkaline Phosphatase 100 Creatine Kinase 190 Creatine Kinase Index No Result Required. CK-MB (CK-2) < 1.0 Troponin I < 0.02 Total Protein 7.9 Albumin 4.2 Lipase 156 Urine Color Yellow Urine Appearance Clear Urine pH 5.0 Ur Specific [place] 1.023 Urine Protein 1+ H Urine Glucose (UA) Trace Urine Ketones Trace H Urine Blood Negative Urine Nitrite Negative Urine Bilirubin Negative Urine Urobilinogen 1.0 Ur Leukocyte Esterase Negative Urine WBC (Auto) 10 Urine RBC (Auto) 27 Urine Casts (Auto) 3 U Epithel Cells (Auto) 16 Urine Bacteria (Auto) 82 11/20/19 11/21/19 15:40 06:32 WBC RBC Hgb Hct MCV MCH MCHC RDW Plt Count MPV Absolute Neuts (auto) Neutrophils % Lymphocytes % Monocytes % Eosinophils % Basophils % Nucleated RBC % PT with INR 12.00 INR 1.02 PTT (Actin FS) 27.8 Sodium Potassium Chloride Carbon Dioxide Anion Gap BUN Creatinine Est GFR (CKD-EPI)AfAm Est GFR (CKD-EPI)NonAf POC Glucometer 115 Random Glucose Calcium Total Bilirubin AST ALT Alkaline Phosphatase Creatine Kinase Creatine Kinase Index CK-MB (CK-2) Troponin I Total Protein Albumin Lipase Urine Color Urine Appearance Urine pH Ur Specific [place] Urine Protein Urine Glucose (UA) Urine Ketones Urine Blood Urine Nitrite Urine Bilirubin Urine Urobilinogen Ur Leukocyte Esterase Urine WBC (Auto) Urine RBC (Auto) Urine Casts (Auto) U Epithel Cells (Auto) Urine Bacteria (Auto) ASSESSMENT/PLAN: 69 yo F with PMHx of HTN, HLD, CAD presenting to the ED with RUQ epigastric pain/elevated LFTs RUQ U/S shows gallstones, and WBC is 15.6. #Cholelithiasis -RUQ U/S shows cholelithiasis -No gangrenous necrosis or emphysematous cholecystitis seen on imaging -Possibly acute cholecystitis -Surgery consulted -NPO after midnight -Hold plavix for possible surgery - IV fluids / antibiotics #Diabetes mellitus - ISS Q6 H while NPO Visit type - Emergency Visit Emergency Visit: Yes ED Registration Date: 11/20/19 Care time: The patient presented to the Emergency Department on the above date and was hospitalized for further evaluation of their emergent condition. - New Patient This patient is new to me today: Yes Date on this admission: 11/21/19 - Critical Care Critical Care patient: No ATTENDING PHYSICIAN STATEMENT I saw and evaluated the patient. I reviewed the resident's note and discussed the case with the resident. I agree with the resident's findings and plan as documented. SUBJECTIVE: OBJECTIVE: ASSESSMENT AND PLAN:
[2019-11-21] MEDS ORDERED: ACETAMINOPHEN 325 MG TABLET (FP) PO PRN (05:52)
[2019-11-21] MEDS: LACTATED RINGERS SOLUTION 1,000 ML IV SCH (06:27)
[2019-11-21] MEDS: INSULIN SLIDING SCALE (NOVOLOG) 1 VIAL SQ SCH ×4 (06:54→21:51)
[2019-11-21] MEDS ORDERED: PIPERACILLIN/TAZOB 3.375 GM 3.375 GM/50 ML BAG IVPB ONE (08:23)
[2019-11-21] MEDS ORDERED: SODIUM POLYSTYRENE SULFONATE 15 GM/60 ML BOTTLE PO ONE (08:46)
[2019-11-21] MEDS: PIPERACILLIN/TAZOB 3.375 GM 3.375 GM in DEXTROSE 5%-WATER - 50 ML IVPB SCH ×2 (09:10→18:12)
[2019-11-21] MEDS ORDERED: SODIUM POLYSTYRENE SULFONATE 15 GM/60 ML BOTTLE ONE (09:13)
[2019-11-21 09:38] LABS: INR 1.04 (0.83-1.09); PROTHROMBIN TIME (PATIENT) 12.3 SEC (9.7-13.0)
[2019-11-21 09:39] LABS: BASO % 0.7 % (0-2.0); EOS % 2.1 % (0-4.5); HEMATOCRIT 37.8 % (32.4-45.2); HEMOGLOBIN 13.2 GM/dL (10.7-15.3); LYMPH % 25.3 % (8-40); MCH 31.1 pg (25.7-33.7); MEAN CELL VOLUME 88.7 fl (80-96); MONO % 9.6 % (3.8-10.2); NEUT % 62.3 % (42.8-82.8); PLATELET COUNT 315 K/MM3 (134-434); RBC 4.26 M/mm3 (3.60-5.2); RDW 12.7 % (11.6-15.6); WHITE BLOOD COUNT 8.1 K/mm3 (4.0-10.0)
[2019-11-21 10:09] LABS: ALBUMIN 3.5 g/dl (3.4-5.0); BLOOD UREA NITROGEN 12.7 mg/dL (7-18); CALCIUM 8.7 mg/dL (8.5-10.1); MAGNESIUM 2.1 mg/dL (1.8-2.4); POTASSIUM 3.8 mmol/L (3.5-5.1)
[2019-11-21 10:12] LABS: BILIRUBIN,TOTAL 0.9 mg/dL (0.2-1); CREATININE 0.9 mg/dL (0.55-1.3); PHOSPHOROUS 3.8 mg/dL (2.5-4.9); TOT PROT 6.4 g/dl (6.4-8.2)
[2019-11-21] MEDS ORDERED: POTASSIUM CHLORIDE TABS 20 MEQ TABLET.ER (FP) PO ONE ×2 (11:18→11:39)
--- NOTE | 2019-11-21 13:11 | CONSULT ---
- Consultation REQUESTING PROVIDER: Albert Chadwick - General Surgery CONSULT REQUEST: We have been asked to surgically evaluate this patient for RUQ pain/cholecystitis PCP: Buddy Llanes MD HPI: Called to sunny 69 yo female with PMHx as noted below. Presents to [facility] ED c/o RUQ/epigastric tenderness since last night. Acute onset. Denies nausea however admits to making herself vomit thinking this would help her abd discomfort...it didn't. While in the ED she had the following imaging studies: 1. ABD U/S: Cholelithiasis w/ thick walled GB. Hepatomegaly and diffuse fatty infiltration of liver 2. ABD CT Scan:Thick walled GB w/ PC fluid. No evidence of cholelithiasis or biliary ductal dilation EKG: NSR, ST depressions in lead III, V5 and V6 which is unchanged from her last EKG in 2019. Currently asymptomatic. Denies n/v/f/c, CP, palpitation, SOB, KOEHLER, weak or d rohini. Denies changes in color of urine. PMHx: HTN, HLD, CAD, NIDDM, Sciatica PSHx: section x3 Home Meds metFORMIN HCL [Metformin HCl] 500 mg PO DAILY 05/03/18 Acetaminophen [Tylenol .Regular Strength -] 650 mg PO Q6H PRN tablet 05/08/18 Amlodipine Besylate [Norvasc -] 10 mg PO DAILY tablet 05/08/18 Aspirin Coated [Ecotrin -] 81 mg PO DAILY tablet.ec 05/08/18 Atorvastatin Ca [Lipitor] 80 mg PO HS tablet 05/08/18 Clopidogrel Bisulfate [Plavix -] 75 mg PO DAILY tablet 05/08/18 Lisinopril [Prinivil] 20 mg PO DAILY tablet 05/08/18 Metoprolol Tartrate [Lopressor -] 12.5 mg PO BID tablet 05/08/18 Sennosides [Senna -] 2 tab PO HS PRN tablet 05/08/18 Sitagliptin Phosphate [Januvia -] 50 mg PO DAILY@0700 tablet 05/08/18 Cyclobenzaprine HCl [Flexeril 10 mg] 10 mg PO BID PRN #20 tablet 11/18/18 Methocarbamol [Robaxin -] 500 mg PO BID #14 tablet 07/08/19 Naproxen 500 mg PO BID PRN #20 tablet 11/18/18 Oxycodone HCl/Acetaminophen [Percocet 5-325 mg Tablet] 1 tab PO Q6H #20 tablet MDD 4 11/22/18 Allergies: NKDA ROS: 12 system review conducted and considered negative except for what's contained in the HPI. PE: GENERAL: a&o. nad HEAD: nc. at EYES: PERRL, sclera anicteric, conjunctiva clear. NECK: Normal ROM, supple without lymphadenopathy, JVD, or masses. LUNGS: unlabored respirations on room air HEART: rrr ABDOMEN: obese habitus. soft, nontender, not distended, negative Luna's. normoactive bowel sounds, no guarding, no rebound, no masses. MUSCULOSKELETAL: No CVA tenderness. UE: 2+ pulses, warm, well-perfused. No cyanosis. Cap refill <2 seconds. No peripheral edema. LE: 2+ pulses, warm, well-perfused. No calf tenderness. No peripheral edema. PSYCH: Cooperative. Good eye contact. Appropriate mood and affect. Last Vital Signs Temp Pulse Resp BP Pulse Ox 97.8 F 62 15 126/51 L 97 11/21/19 08:32 11/21/19 08:32 11/21/19 06:00 11/21/19 08:32 11/21/19 08:32 CBC, BMP 11/21/19 09:10 11/21/19 09:10 INR, PTT INR 1.04 (0.83-1.09) 11/21/19 09:10 Hepatic Panel Total Bilirubin 0.9 mg/dL (0.2-1) 11/21/19 09:10 AST 10 U/L (15-37) L 11/21/19 09:10 ALT 21 U/L (13-61) 11/21/19 09:10 Alkaline Phosphatase 87 U/L (45-117) 11/21/19 09:10 Albumin 3.5 g/dl (3.4-5.0) 11/21/19 09:10 Serology Tests 11/21/19 11/21/19 07:46 09:10 COVID-19 (DIONICIO) Pending SARS-CoV-2 Ab Interp Non-reactive Problem List - Problems (1) Acute cholecystitis Assessment/Plan: 69 yo female presents to [facility] ED w/ c/o RUQ/epigastric pain (acute onset). Imaging studies (ABD CT & ABD U/S) thickened gb with pericholecystic fluid. Patient takes ASA & Plavix daily (stopped as soon as she was admitted). Currently, patient is asymptomatic. Non-toxic appearing. -Because her ASA & Plavix were recently held, will defer lap mauricio until 11/24/19 -f/u Covid pending -- isolation precaution -Tight glycemic control -Sodium Controlled/DM diet -Medical optimization -Replete elytes prn -No further imaging required (only if LFTs rise recommend MRCP) -No need for GI consult as LFTs aren't elevated (if they should rise before scheduled procedure will need GI input) -Surgery Team to cont following Above plan discussed with Dr. Chadwick and agrees. Code(s): K81.0 - ACUTE CHOLECYSTITIS (2) RUQ abdominal pain Code(s): R10.11 - RIGHT UPPER QUADRANT PAIN (3) Sciatic leg pain Code(s): M54.30 - SCIATICA, UNSPECIFIED SIDE Visit type - Case Type Case Type: ED Admission - Emergency Emergency Visit: Yes ED Registration Date: 11/20/19 Care time: The patient presented to the Emergency Department on the above date and was hospitalized for further evaluation of their emergent condition. - New patient This patient is new to me today: Yes Date on this admission: 11/21/19
--- NOTE | 2019-11-21 15:17 | PN ---
Teaching Attending Note Name of Resident: Colt Harp ATTENDING PHYSICIAN STATEMENT I saw and evaluated the patient. I reviewed the resident's note and discussed the case with the resident. I agree with the resident's findings and plan as documented. SUBJECTIVE: Seen and examined at bedside. Pain is resolved. Given that patient is on aspirin and Plavix surgery deferred until Sunday. Patient states that she does not likely want surgery. Will consult infectious disease for nonsurgical treatment of cholecystitis. OBJECTIVE: Last Vital Signs Temp Pulse Resp BP Pulse Ox 97.8 F 62 15 126/51 L 97 11/21/19 08:32 11/21/19 08:32 11/21/19 06:00 11/21/19 08:32 11/21/19 08:32 PE: per resident note Labs/Imaging: reviewed ASSESSMENT AND PLAN: 69-year-old female with a history of hypertension, hyperlipidemia, CAD presenting to the ED with right upper quadrant pain, found to have acute ch olecystitis #Acute cholecystitis Patient has expressed interest in antibioticonly therapy Tentatively scheduled for OR on Sunday given use of aspirin and Plavix ID consult for antibiotic only therapy Continue to hold aspirin and Plavix Pain control IV Zosyn #Diabetes mellitus Insulin sliding scale #Hypertension Continue home meds #CAD Continue home Lipitor Holding Plavix #DVTppx: lovenox
[2019-11-21 17:58] VITALS: BMI 29.7
[2019-11-21] MEDS ORDERED: INSULIN (NOVOLOG) ASPART 100 UNITS/ML 10ML VIAL ONE (18:08)
[2019-11-21] MEDS ORDERED: PIPERACILLIN/TAZOBACTAM 3.375 GM VIAL IVPB ONE (18:09)
[2019-11-21] MEDS ORDERED: DEXTROSE 5%-WATER - 50 ML IVPB ONE (18:09)
--- NOTE | 2019-11-21 20:37 | PN ---
Physical Exam: SUBJECTIVE: Patient seen and examined Patient was examined at bedside. Patient appeared comfortable with no complaints. Patient endorsed not wanting surgery and continuation with ABX treatment. OBJECTIVE: Vital Signs Period Temp Pulse Resp BP Sys/Hills Pulse Ox Last 24 Hr 97.2 F-98.9 F 62-77 15-20 117-148/51-69 96-99 GENERAL: The patient is awake, alert, and fully oriented, in no acute distress. HEAD: Normal with no signs of trauma. EYES: PERRL, extraocular movements intact, sclera anicteric, conjunctiva clear. No ptosis. ENT: Ears normal, nares patent, oropharynx clear without exudates, moist mucous membranes. NECK: Trachea midline, full range of motion, supple. LUNGS: Breath sounds equal, clear to auscultation bilaterally, no wheezes, no crackles, no accessory muscle use. HEART: Regular rate and rhythm, S1, S2 without murmur, rub or gallop. ABDOMEN: Soft, nontender, nondistended, normoactive bowel sounds, no guarding, no rebound, no hepatosplenomegaly, no masses. EXTREMITIES: 2+ pulses, warm, well-perfused, no edema. NEUROLOGICAL: Cranial nerves II through XII grossly intact. Normal speech, gait not observed. PSYCH: Normal mood, normal affect. SKIN: Warm, dry, normal turgor, no rashes or lesions noted Laboratory Results - last 24 hr 11/20/19 11/21/19 11/21/19 15:40 06:32 09:10 WBC RBC Hgb Hct MCV MCH MCHC RDW Plt Count MPV Absolute Neuts (auto) Neutrophils % Lymphocytes % Monocytes % Eosinophils % Basophils % Nucleated RBC % PT with INR INR Sodium Potassium Chloride Carbon Dioxide Anion Gap BUN Creatinine Est GFR (CKD-EPI)AfAm Est GFR (CKD-EPI)NonAf POC Glucometer 115 Random Glucose Hemoglobin A1c % Calcium Phosphorus Magnesium Total Bilirubin AST ALT Alkaline Phosphatase Total Protein Albumin Urine Color Yellow Urine Appearance Clear Urine pH 5.0 Ur Specific Albers 1.023 Urine Protein 1+ H Urine Glucose (UA) Trace Urine Ketones Trace H Urine Blood Negative Urine Nitrite Negative Urine Bilirubin Negative Urine Urobilinogen 1.0 Ur Leukocyte Esterase Negative Urine WBC (Auto) 10 Urine RBC (Auto) 27 Urine Casts (Auto) 3 U Epithel Cells (Auto) 16 Urine Bacteria (Auto) 82 SARS-CoV-2 Ab Interp Non-reactive 11/21/19 11/21/19 11/21/19 09:10 09:10 09:10 WBC 8.1 RBC 4.26 Hgb 13.2 Hct 37.8 MCV 88.7 MCH 31.1 MCHC 35.0 RDW 12.7 Plt Count 315 MPV 9.0 Absolute Neuts (auto) 5.0 Neutrophils % 62.3 D Lymphocytes % 25.3 D Monocytes % 9.6 Eosinophils % 2.1 D Basophils % 0.7 Nucleated RBC % 0 PT with INR 12.30 INR 1.04 Sodium 139 Potassium 3.8 Chloride 105 Carbon Dioxide 25 Anion Gap 9 BUN 12.7 Creatinine 0.9 Est GFR (CKD-EPI)AfAm 76.68 Est GFR (CKD-EPI)NonAf 66.16 POC Glucometer Random Glucose 109 H Hemoglobin A1c % Calcium 8.7 Phosphorus 3.8 Magnesium 2.1 Total Bilirubin 0.9 AST 10 L ALT 21 Alkaline Phosphatase 87 Total Protein 6.4 Albumin 3.5 Urine Color Urine Appearance Urine pH Ur Specific Albers Urine Protein Urine Glucose (UA) Urine Ketones Urine Blood Urine Nitrite Urine Bilirubin Urine Urobilinogen Ur Leukocyte Esterase Urine WBC (Auto) Urine RBC (Auto) Urine Casts (Auto) U Epithel Cells (Auto) Urine Bacteria (Auto) SARS-CoV-2 Ab Interp 11/21/19 11/21/19 11/21/19 09:10 11:43 18:04 WBC RBC Hgb Hct MCV MCH MCHC RDW Plt Count MPV Absolute Neuts (auto) Neutrophils % Lymphocytes % Monocytes % Eosinophils % Basophils % Nucleated RBC % PT with INR INR Sodium Potassium Chloride Carbon Dioxide Anion Gap BUN Creatinine Est GFR (CKD-EPI)AfAm Est GFR (CKD-EPI)NonAf POC Glucometer 117 159 Random Glucose Hemoglobin A1c % 7.1 H Calcium Phosphorus Magnesium Total Bilirubin AST ALT Alkaline Phosphatase Total Protein Albumin Urine Color Urine Appearance Urine pH Ur Specific Albers Urine Protein Urine Glucose (UA) Urine Ketones Urine Blood Urine Nitrite Urine Bilirubin Urine Urobilinogen Ur Leukocyte Esterase Urine WBC (Auto) Urine RBC (Auto) Urine Casts (Auto) U Epithel Cells (Auto) Urine Bacteria (Auto) SARS-CoV-2 Ab Interp Active Medications Generic Name Dose Route Start Last Admin Trade Name Freq PRN Reason Stop Dose Admin Acetaminophen 650 mg 11/21/19 05:52 Tylenol - PO Q4H PRN PAIN LEVEL 6-10 Amlodipine Besylate 10 mg 11/22/19 10:00 Norvasc - PO DAILY DANNY Atorvastatin Calcium 80 mg 11/21/19 22:00 Lipitor - PO HS DANNY Carvedilol 6.25 mg 11/21/19 22:00 Coreg - PO BID DANNY Enoxaparin Sodium 40 mg 11/22/19 10:00 Lovenox - SQ DAILY DANNY Lactated Ringer's 1,000 mls @ 83 mls/hr 11/21/19 06:00 11/21/19 06:27 Lactated Ringers Solution IV 83 mls/hr ASDIR DANNY Administration Piperacillin Sod/Tazobactam 50 mls @ 100 mls/hr 11/21/19 10:00 11/21/19 18:12 Sod 3.375 gm/ Dextrose IVPB 11/22/19 02:29 100 mls/hr Q8H-IV DANNY Administration Protocol Piperacillin Sod/Tazobactam 50 mls @ 100 mls/hr 11/22/19 10:00 Sod 3.375 gm/ Dextrose IVPB Q8H-IV DANNY Protocol Insulin Aspart 1 vial 11/21/19 07:00 11/21/19 18:13 Novolog Vial Sliding Scale - SQ 2 units ACHS DANNY Administration Protocol Lisinopril 40 mg 11/22/19 10:00 Prinivil PO DAILY [facility] Metformin HCl 1,000 mg 11/22/19 07:00 Glucophage - PO 0700 [facility] Pantoprazole Sodium 40 mg 11/22/19 10:00 Protonix - PO DAILY [facility] Sitagliptin Phosphate 100 mg 11/22/19 07:00 Januvia - PO 0700 [facility] ASSESSMENT/PLAN: Jamie is a 69F w PHMx of HTN, HLD, CAD. The patient presented to the ED with complaints of RUQ pain radiating to her RLQ. CT scan shows acute cholecystits. #Acute cholecystitis Patient wishes to continue with ABX treatment and refuses surgical intervention ID consult IV Zosyn #Diabetes mellitus Insulin sliding scale #Hypertension Continue home meds #CAD Continue home Lipitor Holding Plavix #DVTppx: lovenox #-f/u Covid pending -- isolation precaution ATTENDING PHYSICIAN STATEMENT I saw and evaluated the patient. I reviewed the resident's note and discussed the case with the resident. I agree with the resident's findings and plan as documented. SUBJECTIVE: OBJECTIVE: ASSESSMENT AND PLAN:
[2019-11-21] MEDS: ATORVASTATIN CA 80 MG TABLET (FP) PO SCH (21:52)
[2019-11-21] MEDS: CARVEDILOL 6.25 MG TABLET (FP) PO SCH (21:52)
[2019-11-22] MEDS ORDERED: DEXTROSE 5%-WATER - 50 ML IVPB ONE ×3 (01:19→17:08)
[2019-11-22] MEDS ORDERED: PIPERACILLIN/TAZOBACTAM 3.375 GM VIAL IVPB ONE ×3 (01:19→17:08)
[2019-11-22] MEDS: PIPERACILLIN/TAZOB 3.375 GM 3.375 GM in DEXTROSE 5%-WATER - 50 ML IVPB SCH ×3 (02:20→17:25)
[2019-11-22] MEDS ORDERED: PT OWN MED DRAWER 7, Y5N ONE ×2 (05:49→09:09)
[2019-11-22] MEDS: LACTATED RINGERS SOLUTION 1,000 ML IV SCH ×2 (06:45→17:25)
[2019-11-22] MEDS: INSULIN SLIDING SCALE (NOVOLOG) 1 VIAL SQ SCH ×4 (06:46→21:30)
[2019-11-22] MEDS: metFORMIN HCL 500 MG TABLET (FP) PO SCH (06:46)
[2019-11-22 07:21] LABS: BASO % 1.1 % (0-2.0); EOS % 5.4 % (0-4.5); HEMATOCRIT 35.9 % (32.4-45.2); HEMOGLOBIN 12.4 GM/dL (10.7-15.3); LYMPH % 30.5 % (8-40); MCH 30.4 pg (25.7-33.7); MCHC 34.4 g/dl (32.0-36.0); MEAN CELL VOLUME 88.3 fl (80-96); MONO % 9.8 % (3.8-10.2); NEUT % 53.2 % (42.8-82.8); PLATELET COUNT 309 K/MM3 (134-434); RBC 4.07 M/mm3 (3.60-5.2); RDW 12.5 % (11.6-15.6); WHITE BLOOD COUNT 7.9 K/mm3 (4.0-10.0)
[2019-11-22 07:51] LABS: POTASSIUM 3.9 mmol/L (3.5-5.1)
[2019-11-22 07:56] LABS: ALBUMIN 3.4 g/dl (3.4-5.0); BILIRUBIN,TOTAL 0.6 mg/dL (0.2-1); BLOOD UREA NITROGEN 11.9 mg/dL (7-18); CALCIUM 8.5 mg/dL (8.5-10.1); CREATININE 0.7 mg/dL (0.55-1.3); MAGNESIUM 2.2 mg/dL (1.8-2.4); PHOSPHOROUS 4.4 mg/dL (2.5-4.9); TOT PROT 6.1 g/dl (6.4-8.2)
[2019-11-22] MEDS: LISINOPRIL 20 MG TABLET (FP) PO SCH (09:12)
[2019-11-22] MEDS: amLODIPine BESYLATE 10 MG TABLET (FP) PO SCH (09:12)
[2019-11-22] MEDS: CARVEDILOL 6.25 MG TABLET (FP) PO SCH ×2 (09:12→21:30)
[2019-11-22] MEDS: ENOXAPARIN NA (PORCINE) 40 MG/0.4 ML DISP.SYRIN SQ SCH ×2 (09:12→10:28)
[2019-11-22] MEDS: PANTOPRAZOLE 40 MG TABLET PO SCH (09:12)
--- NOTE | 2019-11-22 09:43 | PN ---
Progress Note (short form) - Note Progress Note: Attending Surgeon No c/o; tolerated liquids VSS AF abdo-soft and non tender IMP: resolving acute cholecystitis; probable biliary colic PLAN: Advance diet as tolerated and prn surgical f/u; reconsult as necessary; patient declines operative intervention at this time. Albert Chadwick MD FACS
--- NOTE | 2019-11-22 12:40 | PN ---
Progress Note (short form) - Note Progress Note: ID consult dictated imp/reccd 69 yo female admitted with RUQ pain imaging c/w acute cholycystitis wbc 16k on admission she has spoken with surgery and the hospitalist I spoke to her as well via the [employer] intrpretor she is now feeling well refuses surgery- realizes she is at risk for recurrent cholycystitis and biliary sepsis but trusts God she was able to articulate the and understand the risks of not having surgery and is coomfortable with this choice plan to complete 72 hours of zosyn and then switch to po ceftin 500 bid and flagyl 500 tid for another 7 days should f/u with her PMD as outpt Problem List - Problems (1) RUQ abdominal pain Code(s): R10.11 - RIGHT UPPER QUADRANT PAIN (2) Acute cholecystitis Code(s): K81.0 - ACUTE CHOLECYSTITIS
--- NOTE | 2019-11-22 16:42 | PN ---
Progress Note (short form) - Note Progress Note: SUBJECTIVE: Seen and examined at bedside. Pain is resolved. Patient asking to leave. Discussed case with patient via portable track crew chief. Explained risks of deferring surgery for cholecystitis including likelihood of recurrence of symptoms and possibly biliary sepsis. Pt maintains she does not want surgery OBJECTIVE: Last Vital Signs Temp Pulse Resp BP Pulse Ox 97.6 F 63 20 140/80 97 11/22/19 14:41 11/22/19 14:41 11/22/19 14:41 11/22/19 14:41 11/22/19 09:00 PE: per resident note Labs/Imaging: reviewed ASSESSMENT AND PLAN: 69-year-old female with a history of hypertension, hyperlipidemia, CAD presenting to the ED with right upper quadrant pain, found to have acute cholecystitis #Acute cholecystitis Patient has expressed interest in antibioticonly therapy Will complete 3 days of Zosyn followed by discharge on fluoroquinolone and metronidazole for an additional 7 days Tentatively scheduled for OR on Sunday given use of aspirin and Plavix if she changes her mind about surgery ID on board: appreciate recs Continue to hold aspirin and Plavix Pain control IV Zosyn #Diabetes mellitus Insulin sliding scale #Hypertension Continue home meds #CAD Continue home Lipitor Holding Plavix #DVTppx: lovenox Visit type - Emergency Visit Emergency Visit: Yes ED Registration Date: 11/20/19 Care time: The patient presented to the Emergency Department on the above date and was hospitalized for further evaluation of their emergent condition. - New Patient This patient is new to me today: No - Critical Care Critical Care patient: No
[2019-11-22] MEDS: ATORVASTATIN CA 80 MG TABLET (FP) PO SCH (21:30)
[2019-11-23] MEDS ORDERED: DEXTROSE 5%-WATER - 50 ML IVPB ONE ×3 (00:58→17:05)
[2019-11-23] MEDS ORDERED: PIPERACILLIN/TAZOBACTAM 3.375 GM VIAL IVPB ONE ×3 (00:58→17:05)
[2019-11-23] MEDS: PIPERACILLIN/TAZOB 3.375 GM 3.375 GM in DEXTROSE 5%-WATER - 50 ML IVPB SCH ×3 (01:15→17:25)
[2019-11-23] MEDS: LACTATED RINGERS SOLUTION 1,000 ML IV SCH ×2 (01:50→06:05)
[2019-11-23] MEDS ORDERED: PT OWN MED DRAWER 7, Y5N ONE (05:43)
[2019-11-23] MEDS: metFORMIN HCL 500 MG TABLET (FP) PO SCH (06:04)
[2019-11-23] MEDS: INSULIN SLIDING SCALE (NOVOLOG) 1 VIAL SQ SCH ×4 (06:04→21:35)
[2019-11-23] MEDS: amLODIPine BESYLATE 10 MG TABLET (FP) PO SCH (09:16)
[2019-11-23] MEDS: CARVEDILOL 6.25 MG TABLET (FP) PO SCH ×2 (09:16→21:35)
[2019-11-23] MEDS: ENOXAPARIN NA (PORCINE) 40 MG/0.4 ML DISP.SYRIN SQ SCH (09:16)
[2019-11-23] MEDS: PANTOPRAZOLE 40 MG TABLET PO SCH (09:16)
[2019-11-23] MEDS: LISINOPRIL 20 MG TABLET (FP) PO SCH (09:16)
--- NOTE | 2019-11-23 14:36 | PN ---
Teaching Attending Note Name of Resident: Colt Harp ATTENDING PHYSICIAN STATEMENT I saw and evaluated the patient. I reviewed the resident's note and discussed the case with the resident. I agree with the resident's findings and plan as documented. SUBJECTIVE: Seen and examined at bedside. Patient remains asymptomatic and tolerating p.o. Plan to complete 72 hours of Zosyn and will discharge tomorrow morning on Ceftin and Flagyl p.o. Still refusing surgery OBJECTIVE: Last Vital Signs Temp Pulse Resp BP Pulse Ox 98.3 F 71 20 141/75 98 11/23/19 06:00 11/23/19 06:00 11/23/19 06:00 11/23/19 06:00 11/23/19 09:00 PE: per resident note Labs/Imaging: reviewed ASSESSMENT AND PLAN: 69-year-old female with a history of hypertension, hyperlipidemia, CAD presenting to the ED with right upper quadrant pain, found to have acute cholecystitis #Acute cholecystitis Patient has expressed interest in antibioticonly therapy Will complete 3 days of Zosyn followed by discharge on ceftin and metronidazole for an additional 7 days Tentatively scheduled for OR on Sunday given use of aspirin and Plavix if she changes her mind about surgery ID on board: appreciate recs Continue to hold aspirin and Plavix Pain control IV Zosyn #Diabetes mellitus Insulin sliding scale #Hypertension Continue home meds #CAD Continue home Lipitor Holding Plavix #DVTppx: lovenox
--- NOTE | 2019-11-23 19:07 | PN ---
Physical Exam: SUBJECTIVE: Patient seen and examined Patient woken from slumber. Examined at bedside. Patient denies any acute events or changes overnight. Patient denies SOB, abd pain, N/V/D. OBJECTIVE: Vital Signs Period Temp Pulse Resp BP Sys/Hills Pulse Ox Last 24 Hr 98 F-98.3 F 64-71 20-20 115-156/56-77 98-98 GENERAL: The patient is awake, alert, and fully oriented, in no acute distress. HEAD: Normal with no signs of trauma. EYES: PERRL, extraocular movements intact, sclera anicteric, conjunctiva clear. No ptosis. ENT: Ears normal, nares patent, oropharynx clear without exudates, moist mucous membranes. NECK: Trachea midline, full range of motion, supple. LUNGS: Breath sounds equal, clear to auscultation bilaterally, no wheezes, no crackles, no accessory muscle use. HEART: Regular rate and rhythm, S1, S2 without murmur, rub or gallop. ABDOMEN: Soft, nontender, nondistended, normoactive bowel sounds, no guarding, no rebound, no hepatosplenomegaly, no masses. EXTREMITIES: 2+ pulses, warm, well-perfused, no edema. NEUROLOGICAL: Cranial nerves II through XII grossly intact. Normal speech, gait not observed. PSYCH: Normal mood, normal affect. SKIN: Warm, dry, normal turgor, no rashes or lesions noted Laboratory Results - last 24 hr 11/22/19 11/23/19 11/23/19 21:29 01:17 05:49 POC Glucometer 131 129 126 11/23/19 11/23/19 11:56 17:02 POC Glucometer 118 110 Active Medications Generic Name Dose Route Start Last Admin Trade Name Freq PRN Reason Stop Dose Admin Acetaminophen 650 mg 11/21/19 05:52 Tylenol - PO Q4H PRN PAIN LEVEL 6-10 Amlodipine Besylate 10 mg 11/22/19 10:00 11/23/19 09:16 Norvasc - PO 10 mg DAILY DANNY Administration Atorvastatin Calcium 80 mg 11/21/19 22:00 11/22/19 21:30 Lipitor - PO 80 mg HS DANNY Administration Carvedilol 6.25 mg 11/21/19 22:00 11/23/19 09:16 Coreg - PO 6.25 mg BID DANNY Administration Enoxaparin Sodium 40 mg 11/22/19 10:00 11/23/19 09:16 Lovenox - SQ 40 mg DAILY DANNY Administration Lactated Ringer's 1,000 mls @ 83 mls/hr 11/21/19 06:00 11/23/19 06:05 Lactated Ringers Solution IV Not Given ASDIR DANNY Piperacillin Sod/Tazobactam 50 mls @ 100 mls/hr 11/22/19 10:00 11/23/19 17:25 Sod 3.375 gm/ Dextrose IVPB 100 mls/hr Q8H-IV DANNY Administration Protocol Insulin Aspart 1 vial 11/21/19 07:00 11/23/19 17:24 Novolog Vial Sliding Scale - SQ Not Given ACHS DANNY Protocol Lisinopril 40 mg 11/22/19 10:00 11/23/19 09:16 Prinivil PO 40 mg DAILY DANNY Administration Metformin HCl 1,000 mg 11/22/19 07:00 11/23/19 06:04 Glucophage - PO 1,000 mg 0700 DANNY Administration Pantoprazole Sodium 40 mg 11/22/19 10:00 11/23/19 09:16 Protonix - PO 40 mg DAILY DANNY Administration Sitagliptin Phosphate 100 mg 11/22/19 07:00 11/23/19 06:03 Januvia - PO 100 mg 0700 DANNY Administration ASSESSMENT/PLAN: Jamie is a 69F w a PMHx of HTN, HLD, CAD. The patient presented to the emergency department for right upper quadrant pain that radiated to her right lower quadrant. It was revealed to be cholecystitis for which the patient denies surgical intervention and wishes to proceed with antibiotic treatment. #Acute cholecystitis Patient reports that she is fully aware of the risks involved with declining surgery - ID consulted and wants to place her on 500 of flagyl and 500mg of ceftin for 1 week after discharge - Patient will continue 3 days of zosyn and is currently on day 2 - Patient is currently on day 2/3 of Zosyn #Hypertension Continue home meds #CAD Continue home Lipitor Holding Plavix #Diabetes mellitus Insulin sliding scale #Deep vein thrombosis prophylaxis: - lovenox Visit type - Emergency Visit Emergency Visit: Yes ED Registration Date: 11/20/19 Care time: The patient presented to the Emergency Department on the above date and was hospitalized for further evaluation of their emergent condition. - New Patient This patient is new to me today: No - Critical Care Critical Care patient: No - Discharge Referral Referred to [facility] Med [facility].C.: Yes ATTENDING PHYSICIAN STATEMENT I saw and evaluated the patient. I reviewed the resident's note and discussed the case with the resident. I agree with the resident's findings and plan as documented. SUBJECTIVE: OBJECTIVE: ASSESSMENT AND PLAN:
[2019-11-23] MEDS: ATORVASTATIN CA 80 MG TABLET (FP) PO SCH (21:35)
[2019-11-24] MEDS ORDERED: DEXTROSE 5%-WATER - 50 ML IVPB ONE ×3 (00:55→09:35)
[2019-11-24] MEDS ORDERED: PIPERACILLIN/TAZOBACTAM 3.375 GM VIAL IVPB ONE ×3 (00:55→09:35)
[2019-11-24] MEDS: PIPERACILLIN/TAZOB 3.375 GM 3.375 GM in DEXTROSE 5%-WATER - 50 ML IVPB SCH ×2 (01:42→09:41)
[2019-11-24] MEDS ORDERED: PT OWN MED DRAWER 7, Y5N ONE ×2 (05:41→09:34)
[2019-11-24] MEDS: metFORMIN HCL 500 MG TABLET (FP) PO SCH (06:06)
[2019-11-24] MEDS: INSULIN SLIDING SCALE (NOVOLOG) 1 VIAL SQ SCH ×3 (06:06→16:57)
[2019-11-24] MEDS: LACTATED RINGERS SOLUTION 1,000 ML IV SCH (06:48)
[2019-11-24 08:11] LABS: BASO % 0.7 % (0-2.0); EOS % 8.2 % (0-4.5); HEMATOCRIT 35.6 % (32.4-45.2); HEMOGLOBIN 12.4 GM/dL (10.7-15.3); LYMPH % 22.3 % (8-40); MCH 30.6 pg (25.7-33.7); MCHC 34.8 g/dl (32.0-36.0); MEAN CELL VOLUME 88.1 fl (80-96); MEAN PLT VOLUME 8.6 fl (7.5-11.1); MONO % 8.6 % (3.8-10.2); NEUT % 60.2 % (42.8-82.8); PLATELET COUNT 299 K/MM3 (134-434); RBC 4.05 M/mm3 (3.60-5.2); RDW 12.6 % (11.6-15.6); WHITE BLOOD COUNT 7.4 K/mm3 (4.0-10.0)
[2019-11-24 08:32] LABS: ALBUMIN 3.5 g/dl (3.4-5.0); BILIRUBIN,TOTAL 0.6 mg/dL (0.2-1); BLOOD UREA NITROGEN 10.9 mg/dL (7-18); CALCIUM 8.9 mg/dL (8.5-10.1); CREATININE 0.9 mg/dL (0.55-1.3); PHOSPHOROUS 4.9 mg/dL (2.5-4.9); POTASSIUM 4.1 mmol/L (3.5-5.1); TOT PROT 6.4 g/dl (6.4-8.2)
[2019-11-24] MEDS: amLODIPine BESYLATE 10 MG TABLET (FP) PO SCH (09:40)
[2019-11-24] MEDS: CARVEDILOL 6.25 MG TABLET (FP) PO SCH (09:40)
[2019-11-24] MEDS: LISINOPRIL 20 MG TABLET (FP) PO SCH (09:41)
[2019-11-24] MEDS: PANTOPRAZOLE 40 MG TABLET PO SCH (09:41)
[2019-11-24] MEDS: ENOXAPARIN NA (PORCINE) 40 MG/0.4 ML DISP.SYRIN SQ SCH (09:44)
[2019-11-24] MEDS ORDERED: INSULIN (NOVOLOG) ASPART 100 UNITS/ML 10ML VIAL ONE (11:23)
[2019-11-24 11:51] VITALS: PULSE 61
--- NOTE | 2019-11-24 13:22 | DS ---
Physical Exam: SUBJECTIVE: Patient seen and examined OBJECTIVE: Vital Signs Period Temp Pulse Resp BP Sys/Hills Pulse Ox Last 24 Hr 98 F-98.5 F 61-75 20-20 115-163/56-78 97 PHYSICAL EXAM GENERAL: The patient is awake, alert, and fully oriented, in no acute distress. HEAD: Normal with no signs of trauma. EYES: PERRL, extraocular movements intact, sclera anicteric, conjunctiva clear. ENT: Ears normal, nares patent, oropharynx clear without exudates, moist mucous membranes. NECK: Trachea midline, full range of motion, supple. LUNGS: Breath sounds equal, clear to auscultation bilaterally, no wheezes, no crackles, no accessory muscle use. HEART: Regular rate and rhythm, S1, S2 without murmur, rub or gallop. ABDOMEN: Soft, nontender, nondistended, normoactive bowel sounds, no guarding, no rebound, no hepatosplenomegaly, no masses. EXTREMITIES: 2+ pulses, warm, well-perfused, no edema. NEUROLOGICAL: Cranial nerves II through XII grossly intact. Normal speech, gait not observed. PSYCH: Normal mood, normal affect. SKIN: Warm, dry, normal turgor, no rashes or lesions noted. LABS Laboratory Results - last 24 hr 11/23/19 11/23/19 11/24/19 17:02 21:35 01:36 WBC RBC Hgb Hct MCV MCH MCHC RDW Plt Count MPV Absolute Neuts (auto) Neutrophils % Lymphocytes % Monocytes % Eosinophils % Basophils % Nucleated RBC % Sodium Potassium Chloride Carbon Dioxide Anion Gap BUN Creatinine Est GFR (CKD-EPI)AfAm Est GFR (CKD-EPI)NonAf POC Glucometer 110 131 127 Random Glucose Calcium Phosphorus Magnesium Total Bilirubin AST ALT Alkaline Phosphatase Total Protein Albumin 11/24/19 11/24/19 11/24/19 05:46 07:40 07:40 WBC 7.4 RBC 4.05 Hgb 12.4 Hct 35.6 MCV 88.1 MCH 30.6 MCHC 34.8 RDW 12.6 Plt Count 299 MPV 8.6 Absolute Neuts (auto) 4.4 Neutrophils % 60.2 Lymphocytes % 22.3 D Monocytes % 8.6 Eosinophils % 8.2 H Basophils % 0.7 Nucleated RBC % 0 Sodium 140 Potassium 4.1 Chloride 105 Carbon Dioxide 28 Anion Gap 6 L BUN 10.9 Creatinine 0.9 Est GFR (CKD-EPI)AfAm 76.68 Est GFR (CKD-EPI)NonAf 66.16 POC Glucometer 124 Random Glucose 130 H Calcium 8.9 Phosphorus 4.9 Magnesium 2.0 Total Bilirubin 0.6 AST 14 L ALT 25 Alkaline Phosphatase 73 Total Protein 6.4 Albumin 3.5 11/24/19 11:27 WBC RBC Hgb Hct MCV MCH MCHC RDW Plt Count MPV Absolute Neuts (auto) Neutrophils % Lymphocytes % Monocytes % Eosinophils % Basophils % Nucleated RBC % Sodium Potassium Chloride Carbon Dioxide Anion Gap BUN Creatinine Est GFR (CKD-EPI)AfAm Est GFR (CKD-EPI)NonAf POC Glucometer 126 Random Glucose Calcium Phosphorus Magnesium Total Bilirubin AST ALT Alkaline Phosphatase Total Protein Albumin HOSPITAL COURSE: Date of Admission:11/20/19 Date of Discharge: 11/24/19 Minutes to complete discharge: 40 Discharge Summary Problems reviewed: Yes Reason For Visit: HYPOGLYCEMIA Condition: Good - Instructions Diet, Activity, Other Instructions: YOUR VISIT: You were admitted to the hospital for abdominal pain While you were in the hospital, we evaluated you with lab work, blood work, imaging including abdominal ultrasound and CT scan of your abdomen which showed an inflamed gallbladder and a fatty liver. You also had a chest xray which did not show any problems. Your symptoms of abdominal pain were caused by your gallbladder being inflamed. You were evaluated by specialists and surgeon during your hospital course. You expressed to us that you did not want to proceed with surgery and wanted to continue with antibiotic treatment. You confirmed with us that understood the risks and benefits associated antibiotic treatment instead of surgery to remove the gallbladder. You were treated with antibiotics, fluids, and blood pressure medication. You finished your course of IV antibiotics and will be discharged with home antibiotics. MEDICATIONS: Please START taking flagyl 500mg three times a day for one week Please START taking ceftin 500mg three times a day for one week Please take all home medications as prescribed FOLLOW UP: Please follow up with the surgery team (Dr. Albert Chadwick) within 1 week of discharge for follow up. Please follow up with your PCP within 1 week of discharge for follow up with your gallbladder and fatty liver. If you do not have a primary care provider you may make an appointment with Dr. Colt Harp at the [facility] located at [address] [place] [address] ([phone]) ADDITIONAL INFORMATION: You are being discharged home. Please return to the emergency department if you are experiencing worsening abdominal pain, fevers, chills, shortness of breath, or chest pain, or if you experience any worsening, new, or concerning symptoms. Referrals: [facility] [place] [Provider Group] - 1 Week Albert Chadwick MD [Staff Physician] - 1 Week Disposition: HOME - Home Medications Comprehensive Discharge Medication List: Ambulatory Orders Amlodipine Besylate 10 mg PO DAILY 11/21/19 Aspirin 81 mg PO DAILY 11/21/19 Atorvastatin Ca [Lipitor] 80 mg PO HS 11/21/19 Carvedilol [Coreg -] 6.25 mg PO BID 11/21/19 Clopidogrel Bisulfate [Clopidogrel] 75 mg PO DAILY 11/21/19 Lisinopril [Prinivil -] 40 mg PO DAILY 11/21/19 Pantoprazole Sodium [Protonix] 40 mg PO DAILY 11/21/19 Sitagliptin Phosphate [Januvia] 100 mg PO DAILY 11/21/19 metFORMIN HCL [Metformin HCl] 1,000 mg PO BID 11/21/19 Cefuroxime Axetil [Ceftin -] 500 mg PO Q8H #21 tablet 11/24/19 metroNIDAZOLE [Flagyl -] 500 mg PO Q8H #21 tablet 11/24/19 - Discharge Referral Referred to [facility] Med [facility].C.: Yes ATTENDING PHYSICIAN STATEMENT I saw and evaluated the patient. I reviewed the resident's note and discussed the case with the resident. I agree with the resident's findings and plan as documented. SUBJECTIVE: OBJECTIVE: ASSESSMENT AND PLAN:
[2019-11-24 14:35] VITALS: BP 117/68; TEMP 98.2
--- NOTE | 2019-11-25 18:24 | CONS ---
DATE OF CONSULTATION: DATE OF DICTATION: 11/25/2019 INFECTIOUS DISEASE CONSULTATION HISTORY OF PRESENT ILLNESS: This is a 69-year-old woman. She was admitted in November 19 with complaints of abdominal pain right upper quadrant. Apparently it started on the day prior to admission. Was presented to the ER and had improved by the time she was admitted. She had no nausea or vomiting at home. There was no fever, chill, diarrhea, or constipation. She had a CAT scan and was felt to have an examined CAT scan consistent with an ultrasound, consistent with acute cholecystitis. She was seen by surgery for possible surgery which she refused. I am asked to see her for antibiotics. PAST MEDICAL HISTORY: Hypertension, hyperlipidemia, coronary artery disease. She has a history of diabetes as well. SURGICAL HISTORY: There is no surgical history. SOCIAL HISTORY: No history of cigarette, alcohol, substance use. ALLERGIES: No known drug allergies. MEDICATION: Include: 1. Metformin. 2. Amlodipine. 3. Aspirin. 4. Lipitor. 5. Plavix. 6. Lisinopril. 7. Lopressor. 8. Senna. 9. Januvia. 10. Flexeril. 11. Robaxin. 12. Naproxen. 13. Percocet. REVIEW OF SYSTEMS: She reports her abdominal pain is completely resolved, and she feels well. PHYSICAL EXAMINATION: General: She is a pleasant 69-year-old woman in no acute distress. She has been afebrile since admission. Vital Signs: Temperature 97.8, pulse 163/78, respiratory rate 20, pulse of 75. She is saturating 97% on room air. HEENT: Normocephalic. Eyes are anicteric. Neck: Supple. Lungs: Clear to auscultation. Heart: Regular rate and rhythm. Abdomen: Soft, nontender. She has no right upper quadrant pain at this time. Extremities: Without edema. LABORATORY: White count on admission was 15.6, today is 7.9, hemoglobin 12.4, platelets are 309. Her LFTs on admission were notable for AST of 44, otherwise normal. Glucose of 157. Normal BUN and creatinine. Repeat LFTs on the were normal. Urinalysis was negative for leukocyte esterase, 10 white cells. COVID serology was negative. Cultures were negative as well. She had a CAT scan of her abdomen and pelvis that showed a gallbladder with fluid consistent with acute cholecystitis. There was no evidence of diverticular disease. She had an ultrasound as well that showed cholelithiasis with thick-walled gallbladder, hepatomegaly and fatty liver. IMPRESSION: In summary, this is a 69-year-old woman admitted with right upper quadrant pain. Imaging consistent with acute cholecystitis. Clinically she has at minimum biliary colic, elevated white count on admission. She has spoken to surgery and the hospitalist and refused surgery. I spoke to her as well via the senior software development engineer. She is now feeling well. She refused the surgery, realized she is at risk for recurrent cholecystitis and biliary sepsis, but informs me that she has merritt in God. She is was able to articulate and understand the risks of not having surgery and is comfortable with this choice. Plan to complete 72 hours of Zosyn and then switch her to Ceftin and Flagyl to complete another 7 days. She should follow up with her PMD as an outpatient. LONNY SANCHEZ M.D. [id number]
== END 2019-11-24 17:41 | disposition home or self-care (01) | DRG 445 ==
LOC: JER 14:30 → JERBED 22:06 → J8W 11-21 16:56
PROVIDERS: ADMIT Internal Medicine; ATTEND Internal Medicine
DX: K80.00 Calculus of gallbladder with acute cholecystitis without obstruction (principal); E87.1 Hypo-osmolality and hyponatremia; E87.5 Hyperkalemia; K76.0 Fatty (change of) liver, not elsewhere classified; E11.9 Type 2 diabetes mellitus without complications; I10 Essential (primary) hypertension; E78.5 Hyperlipidemia, unspecified; R80.9 Proteinuria, unspecified; R16.0 Hepatomegaly, not elsewhere classified; I25.10 Atherosclerotic heart disease of native coronary artery without angina pectoris; Z91.14 Patient's other noncompliance with medication regimen
CPT/HCPCS: 36415; 71046-TC-FY; 74177-TC; 76705-TC; 80053; 81003; 82550; 82553; 82962; 83036; 83690; 83735; 84100; 84132; 84484; 85025; 85610; 85730; 86769; 87040; 87077; 87086; 93005; 93010; 99285-25; U0003

== ENCOUNTER 2023-08-30 22:39 | Observation (INO) | payer OTHER ==
[2023-08-31] MEDS ORDERED: amLODIPine BESYLATE 5 MG TABLET (FP) ONE (00:07)
[2023-08-31] MEDS ORDERED: ASPIRIN 81 MG CHEWABLE TABLETS ONE (00:07)
[2023-08-31] MEDS: ASPIRIN 81 MG CHEWABLE TABLETS PO ONE (00:15)
[2023-08-31] MEDS: amLODIPine BESYLATE 5 MG TABLET (FP) PO ONE (00:15)
[2023-08-31 00:35] LABS: BASO % 0.7 % (0-2.0); EOS % 2.7 % (0-4.5); HEMATOCRIT 44.1 % (32.4-45.2); HEMOGLOBIN 15.2 GM/dL (10.7-15.3); LYMPH % 25.7 % (8-40); MCH 30.3 pg (25.7-33.7); MCHC 34.3 g/dl (32.0-36.0); MEAN CELL VOLUME 88.2 fl (80-96); MEAN PLT VOLUME 8.5 fl (7.5-11.1); MONO % 8.7 % (3.8-10.2); NEUT % 62.2 % (42.8-82.8); PLATELET COUNT 329 10^3/uL (134-434); RDW 13.1 % (11.6-15.6); WHITE BLOOD COUNT 7.7 K/mm3 (4.0-10.0)
[2023-08-31 00:39] LABS: INR 0.97 (0.83-1.09); PROTHROMBIN TIME (PATIENT) 11.2 SEC (9.7-13.0)
[2023-08-31 00:42] LABS: ACTIVATED PTT 29.1 SECONDS (25.2-36.5)
[2023-08-31 00:44] LABS: POTASSIUM 3.9 mmol/L (3.5-5.1)
[2023-08-31 00:46] LABS: CALCIUM 9.1 mg/dL (8.5-10.1)
[2023-08-31 00:47] LABS: ALBUMIN 3.8 g/dl (3.4-5.0); BLOOD UREA NITROGEN 17.3 mg/dL (7-18)
[2023-08-31 00:50] LABS: CREATININE 0.9 mg/dL (0.55-1.3)
[2023-08-31 00:52] LABS: BILIRUBIN,TOTAL 0.4 mg/dL (0.2-1); TOT PROT 7.1 g/dl (6.4-8.2)
[2023-08-31] MEDS ORDERED: ACETAMINOPHEN INJECTION 100 ML IVPB ONE (02:15)
[2023-08-31] MEDS: ACETAMINOPHEN 1000 MG/100 ML BAG IVPB ONE (02:19)
[2023-08-31] MEDS ORDERED: LABETALOL HCL 100 MG TABLET (FP) ONE (03:05)
[2023-08-31] MEDS: LABETALOL HCL 100 MG TABLET (FP) PO ONE (03:09)
[2023-08-31] MEDS ORDERED: ACETAMINOPHEN 500 MG TABLET (FP) PO PRN (05:17)
[2023-08-31 06:07] VITALS: BMI 31.2
[2023-08-31] MEDS: INSULIN (NOVOLOG) ASPART 100 UNITS/ML 10ML VIAL SQ SCH (06:52)
[2023-08-31] MEDS: INSULIN ASPART SLIDING SCALE (NOVOLOG) 1 VIAL SQ SCH (06:53)
[2023-08-31 07:44] LABS: HEMATOCRIT 40.2 % (32.4-45.2); HEMOGLOBIN 13.9 GM/dL (10.7-15.3); MCH 30.6 pg (25.7-33.7); MCHC 34.5 g/dl (32.0-36.0); MEAN CELL VOLUME 88.5 fl (80-96); PLATELET COUNT 278 10^3/uL (134-434); RBC 4.54 M/mm3 (3.60-5.2); RDW 12.8 % (11.6-15.6); WHITE BLOOD COUNT 7.5 K/mm3 (4.0-10.0)
[2023-08-31 07:54] LABS: POTASSIUM 3.5 mmol/L (3.5-5.1)
[2023-08-31 07:59] LABS: CALCIUM 8.7 mg/dL (8.5-10.1); MAGNESIUM 2.1 mg/dL (1.8-2.4)
[2023-08-31 08:01] LABS: ALBUMIN 3.4 g/dl (3.4-5.0)
[2023-08-31 08:02] LABS: CREATININE 0.8 mg/dL (0.55-1.3)
[2023-08-31 08:04] LABS: PHOSPHOROUS 4.5 mg/dL (2.5-4.9); TOT PROT 6.3 g/dl (6.4-8.2)
[2023-08-31 08:05] LABS: BILIRUBIN,TOTAL 0.4 mg/dL (0.2-1)
[2023-08-31] MEDS: LABETALOL HCL 100 MG TABLET (FP) PO SCH (09:47)
[2023-08-31] MEDS: ENOXAPARIN NA (PORCINE) 40 MG/0.4 ML DISP.SYRIN SQ SCH (09:47)
[2023-08-31] MEDS: HYDROCHLOROTHIAZIDE 12.5 MG CAPSULE (FP) PO SCH (09:47)
[2023-08-31] MEDS: LISINOPRIL 20 MG TABLET PO SCH (09:47)
[2023-08-31] MEDS: CLOPIDOGREL BISULFATE 75 MG TABLET (FP) PO SCH (09:47)
[2023-08-31] MEDS ORDERED: HYDROCHLOROTHIAZIDE 12.5 MG CAPSULE (FP) PO SCH (10:00)
[2023-08-31] MEDS: INSULIN (LEVEMIR) 100 UNITS/ML UNITS SQ SCH (11:18)
[2023-08-31] MEDS: ATORVASTATIN CA 80 MG TABLET (FP) PO SCH (21:03)
[2023-09-01 08:41] LABS: BASO % 1.1 % (0-2.0); EOS % 3.5 % (0-4.5); HEMATOCRIT 42.6 % (32.4-45.2); HEMOGLOBIN 14.5 GM/dL (10.7-15.3); LYMPH % 31.1 % (8-40); MCH 30.4 pg (25.7-33.7); MEAN CELL VOLUME 89.3 fl (80-96); MEAN PLT VOLUME 8.4 fl (7.5-11.1); MONO % 8.2 % (3.8-10.2); NEUT % 56.1 % (42.8-82.8); PLATELET COUNT 293 10^3/uL (134-434); RBC 4.76 M/mm3 (3.60-5.2); RDW 12.7 % (11.6-15.6); WHITE BLOOD COUNT 7.8 K/mm3 (4.0-10.0)
[2023-09-01 09:01] LABS: POTASSIUM 3.9 mmol/L (3.5-5.1)
[2023-09-01 09:05] LABS: BLOOD UREA NITROGEN 17.2 mg/dL (7-18); MAGNESIUM 2.3 mg/dL (1.8-2.4)
[2023-09-01 09:08] LABS: CALCIUM 9.2 mg/dL (8.5-10.1)
[2023-09-01] MEDS: amLODIPine BESYLATE 10 MG TABLET (FP) PO SCH (09:26)
[2023-09-01] MEDS: EZETIMIBE 10 MG TABLET (FP) PO SCH (11:30)
[2023-09-01 14:29] VITALS: TEMP 98
[2023-09-01 18:00] VITALS: BP 155/77; PULSE 69; RESP 16
== END 2023-09-01 18:28 | disposition home or self-care (01) ==
LOC: JER 22:39 → UNDOADMOB 08-31 01:33 → JERBED 08-31 01:33 → INTOOBSV 08-31 04:51 → OBSVTOIN 08-31 04:51 → JERBED 08-31 05:23 → J4S 08-31 05:23 → JERBED 08-31 11:22
PROVIDERS: ADMIT Student in an Organized Health Care Education/Training Program; ATTEND Internal Medicine
PROC: 3E033NZ Introduction of Analgesics, Hypnotics, Sedatives into Peripheral Vein, Percutaneous Approach (ICD-10-PCS; principal; 2023-08-31)
PROC: 3E023GC Introduction of Other Therapeutic Substance into Muscle, Percutaneous Approach (ICD-10-PCS; 2023-08-31)
PROC: 3E013VG Introduction of Insulin into Subcutaneous Tissue, Percutaneous Approach (ICD-10-PCS; 2023-08-31)
DX: I16.0 Hypertensive urgency (principal); E11.9 Type 2 diabetes mellitus without complications; I25.10 Atherosclerotic heart disease of native coronary artery without angina pectoris; I11.0 Hypertensive heart disease with heart failure; E78.5 Hyperlipidemia, unspecified; Z86.73 Personal history of transient ischemic attack (TIA), and cerebral infarction without residual deficits; R07.89 Other chest pain
CPT/HCPCS: 36415; 71045-TC-FY; 80048; 80053; 80061; 82962; 83036; 83735; 83880; 84100; 84484; 85025; 85027; 85610; 85730; 93005; 93010; 96372; 96374; 99285-25; G0378; J0131